=== PATIENT | female | born 1945 | race Caucasian/White ===

== ENCOUNTER 2018-03-25 00:48 | Inpatient (IN) ==
[2018-03-25] MEDS ORDERED: Artificial Tears SOLN 15 ML BOTTLE BOTH EYES PRN (02:40)
[2018-03-25] MEDS ORDERED: Naloxone 0.4 MG/ML INJ IVP PRN (02:40)
[2018-03-25] MEDS ORDERED: Ringers Solution, Lactated 500 ML IVC ONE ×2 (02:50→05:08)
[2018-03-25] MEDS ORDERED: Isovue-370 500 ML INFUS..BTL IV ONE (02:52)
[2018-03-25] MEDS ORDERED: Vancomycin (wt based) 1,000 MG VIAL IVPB SCH (03:00)
[2018-03-25 03:18] LABS: ABG Base Excess -3 mEq/L (-2 to 3); ABG HCO3 25 mEq/L (21-27); ABG Oxygen Saturation 98 % (95-98); ABG PCO2 54 mmHg (35-45); ABG PH 7.26 pH Units (7.32-7.45); ABG PO2 125 mmHg (85-104); ABG TCO2 26 mEq/L (20-26); Blood Gas Modality ASSIST CONTROL; Blood Gas PEEP 5 cm H2O; Blood Gas Respiration Rate 20; Blood Gas VT 400 cc
[2018-03-25] MEDS: Dexmedetomidine HCl 400 MCG/100 ML MLS IVC SCH ×2 (03:35→14:31)
[2018-03-25 03:41] LABS: Basophils # 0.1 K/mcL (0.0-0.2); Basophils % 0.2 %; Eosinophils % 0.1 %; Hematocrit 36.3 % (35.3-44.9); Hemoglobin 10.8 g/dL (11.5-15.4); Immature Granulocytes % 2.5 % (0-4); Lymphocytes # 0.5 K/mcL (0.6-4.6); Lymphocytes % 2.1 %; Mean Corpuscular HGB Conc 29.8 g/dL (31.6-35.5); Mean Corpuscular Hemoglobin 27.7 pg (28.0-33.3); Mean Corpuscular Volume 93.1 fL (83.0-100.0); Monocytes # 0.9 K/mcL (0.0-1.3); Monocytes % 3.6 %; Neutrophils # 23.4 K/mcL (1.6-8.9); Platelet Count 254 K/mcL (140-400); Red Cell Distribution Width 14.5 % (11.5-14.5); Segmented Neutrophils % 91.5 %
[2018-03-25] MEDS: Ipratropium/Albuterol Neb 3 ML IH SCH ×6 (03:45→23:46)
--- NOTE | 2018-03-25 03:53 | Internal Med History&Physical ---
Date of Encounter: 03/25/18 Time of Encounter: 03:46 Internal Medicine - H&P: HPI Chief complaint: Pneumonia Admitted From: Emergency Dept Plans for Post Hospital Care: Home History of present illness: Ms. Burnham is a 72 year old female with history of COPD who presented from [facility] emergency department with pneumonia and respiratory failure. Patient is intubated and sedated and unable to provide history. History is obtained from the in the medical record. Per the patient had some cold symptoms approximately 3 days ago but said that she was feeling better. Today states that several hours prior to arrival she was having "hot and cold flashes." He also states that she felt like she needed to turn up her oxygen from her normal 3.5 L to 4 L. denies any cough or shortness of breath. He states she did feel a little warm to touch but did not measure her temperature. Per ED report EMS had stated that upon their arrival patient had poor respiratory effort and hypoxia. Her oxygen levels improved with nebulized breathing treatments and nonrebreather however upon arrival to the emergency department she was lethargic in any acute respiratory distress. At that point she was intubated. Upon arrival patient was sedated but would awaken and follow basic commands. She did not appear to be in any acute distress. Past Med Surg Social Fam HX - Past Medical History Medical history: arthritis, COPD, GERD, hypertension, osteoporosis, other Additional medical history: Dysphonia-resolved Psychiatric history: anxiety, depression - Past Surgical History Surgical History: cholecystectomy Additional surgical history: left shoulder scope. cystectomy. right foot. right knee. cataracts. left wrist fx - Social History Smoking Status: Former smoker Smokeless Tobacco Status: No Alcohol use: none Drug use: none - Family History Mother Living Status: Hx Family Cardiac Disorders: No Hx Family Respiratory Disorders: No Hx Family Cancer: No Hx Family GI Disorders: No Hx Family Endocrine Disorder: No Hx Family Neuromuscular Disorders: No Hx Family Neurologic Disorders: Yes Hx Family HEENT Disorders: No Hx Family Autoimmune Disorders: No Internal Medicine - H&P: Meds Ipratropium/Albuterol Neb [Duoneb] 3 ml IH Q6HR 02/18/15 [History] Metoprolol XL (24 HR) Succ [Toprol Xl] 25 mg PO DAILY 02/18/15 [History] Montelukast [Singulair] 10 mg PO HS 02/18/15 [History] Tiotropium [Spiriva] 18 mcg IH DAILY 02/18/15 [History] Albuterol Sulfate [Albuterol Inhaler] 180 mcg IH Q4HR PRN 07/06/15 [History] Cholecalciferol (Vitamin D3) [Vitamin D3] 10,000 unit PO DAILY 07/06/15 [History ] Oxygen 2 l NS AD 07/06/15 [History] ALPRAZolam [Xanax 0.25 MG Tablet] 0.25 mg PO TID PRN #21 tablet 10/05/15 [Rx] Fluticasone/Salmeterol [Advair 250-50 Diskus] 1 each IH BID 03/25/18 [History] 3 Allergy/AdvReac Type Severity Reaction Status Date / Time Penicillins Allergy Anaphylaxis Verified 03/24/18 23:35 acetaminophen [From Vicodin] AdvReac Hallucinati Verified 03/25/18 02:05 ng gabapentin [From Neurontin] AdvReac Hallucinati Verified 03/25/18 02:05 ng hydrocodone [From Vicodin] AdvReac Hallucinati Verified 03/25/18 02:05 ng hydroxyzine [From Atarax] AdvReac Diarrhea Verified 03/24/18 23:35 Oxycodone AdvReac Hallucinati Verified 03/24/18 23:35 ng pregabalin [From Lyrica] AdvReac Hallucinati Verified 03/25/18 02:05 ng ROS unobtainable: due to endotracheal tube All Systems PM: A 10-system review of systems was performed and is negative for pertinent findings except as documented above in the HPI. - Constitutional Vitals: Temp Pulse Resp BP Pulse Ox 96.7 F L 103 23 81/68 98 03/25/18 03:00 03/25/18 03:06 03/25/18 03:06 03/25/18 03:06 03/25/18 03:06 Exam: Currently intubated and sedated. Will wake up to verbal commands and follow basic instructions. Moves all 4 extremities spontaneously. - Head Head exam: Present: atraumatic, normal inspection, normocephalic - Eye Eye exam: Present: EOMI, PERRL - ENT ENT exam: Present: mucous membranes moist - Neck Neck exam general surgery: Present: supple - Respiratory Respiratory exam: Present: rhonchi (RLL), wheezes (diffuse). Absent: respiratory distress, tachypnea - Cardiovascular Cardiovascular exam: Present: +S1, +S4, tachycardia. Absent: gallop, irregular rhythm, rubs, systolic murmur - GI/Abdominal GI/Abdominal exam: Present: normal bowel sounds, soft. Absent: distended, tenderness - Extremities Exam Extremities exam: Present: warm. Absent: pedal edema, tenderness - Neurological Exam Neurological exam: Present: alert, no focal deficits Additional comments: Patient is currently intubated and sedated but patient will wake up and follow basic commands. Does not appear to be in any acute distress. Moves all 4 extremity spontaneously. - Skin Skin exam: Present: dry, intact, warm Internal Med - H&P Results - Labs CBC & Chem 7: 03/25/18 03:26 03/25/18 03:26 Labs: Short CBC 03/25/18 Range/Units 03:26 WBC 25.6 H (4.3-11.1) K/mcL Hgb 10.8 L D (11.5-15.4) g/dL Hct 36.3 (35.3-44.9) % Plt Count 254 (140-400) K/mcL - ABG Interpretation ABG results: 03/25/18 03:12 ABG pH 7.26 L D ABG pCO2 54 H D ABG pO2 125 H ABG HCO3 25 ABG Total CO2 26 ABG O2 Saturation 98 ABG Base Excess -3 L - Assessment and plan (1) Acute and chronic respiratory failure Current Visit: No Status: Resolved Assessment and plan: Likely secondary to sepsis, pneumonia, acute exacerbation of COPD. Given elevated troponin and d-dimer, PE is also concern. Patient was intubated in the emergency department. Currently on mechanical ventilation with acceptable oxygenation and hypercapnia is improving. Monitor ABGs. Will order CT of the chest to rule out PE. Qualifiers: Respiratory failure complication: hypoxia and hypercapnia Qualified Code(s) : J96.21 - Acute and chronic respiratory failure with hypoxia; J96.22 - Acute and chronic respiratory failure with hypercapnia (2) Sepsis Current Visit: Yes Status: Acute Assessment and plan: Patient presented with leukocytosis, bandemia, tachycardia likely secondary to pneumonia. Chest x-ray reveals right lower lobe pneumonia. She received 1 L bolus in the emergency department, we will give another 500 mL bolus to meet 30 mL/kg. Blood cultures have been drawn, antibiotics have been initiated. Initial lactate was 5.6 on presentation, repeat in the emergency department was 1.9. Rechecked upon arrival was 2.7, this was likely due to hypotension related to medications. Medications have been discontinued and blood pressures improved with fluids. No indication for vasopressors at this time. Continue to trend lactic acid. Qualifiers: Sepsis type: sepsis due to unspecified organism Qualified Code(s): A41.9 - Sepsis, unspecified organism (3) Pneumonia Current Visit: Yes Status: Acute Assessment and plan: Evidence of her lower lobe pneumonia on chest x-ray with respiratory failure and sepsis as above. Given the patient is intubated and in the ICU we will treat with broad-spectrum antibiotics including vancomycin, aztreonam, Levaquin. Patient's reports that she has history of anaphylaxis to penicillins so we will avoid beta lactams at this time. We will check MRSA nasal swab, strep and legionella urinary antigens, sputum cultures. Blood cultures pending. Qualifiers: Pneumonia type: due to unspecified organism Laterality: right Lung location: lower lobe of lung Qualified Code(s): J18.1 - Lobar pneumonia, unspecified organism (4) Acute exacerbation of chronic obstructive pulmonary disease (COPD) Current Visit: Yes Status: Acute Assessment and plan: Secondary to pneumonia as discussed above. No PFTs on file however patient is a former smoker and on previous CT she said severe emphysema and is oxygen dependent. Currently on antibiotics for pneumonia, received methylprednisolone 125 mg 1 in the emergency department, we will continue with methylprednisolone 60 mg every 6. Scheduled DuoNeb nebs every 4. (5) Elevated troponin Current Visit: Yes Status: Acute Assessment and plan: Troponin 0.86 on presentation, up to 1.94 approximately 4 hours later. No obvious ischemic injury on initial EKG, denies any chest pain prior to arrival. Unclear if this is true myocardial ischemia versus demand ischemia in the setting of sepsis and pneumonia. Regardless we will start heparin infusion , check echo in the morning, repeat troponin in 6 hours. Recheck EKG now. If troponin continues to climb further new ischemic changes consider cardiology consult. (6) DVT prophylaxis Current Visit: Yes Status: Acute Assessment and plan: On heparin infusion for elevated troponin as above. No indication for further DVT prophylaxis. - Time Spent With Patient Total time spent is greater than 50% in coordination of care (as documented) at patient's floor/unit and/or counseling patient:
[2018-03-25 03:59] LABS: Alanine Aminotransferase 92 Units/L (7-52); Albumin 3.1 g/dL (3.5-5.7); Albumin/Globulin Ratio 1.1 (1.1-2.2); Alkaline Phosphatase 52 Units/L (34-104); Aspartate Amino Transferase 136 Units/L (13-39); BUN/Creatinine Ratio 25 (6-26); Bilirubin,Direct 0.1 mg/dL (0.0-0.2); Bilirubin,Indirect 0.3 mg/dL (0.0-1.2); Bilirubin,Total 0.4 mg/dL (0.3-1.0); Blood Urea Nitrogen 19 mg/dL (8-23); Calcium 8.4 mg/dL (8.6-10.3); Carbon Dioxide 22 mEq/L (23-29); Chloride 107 mEq/L (98-107); Globulin 2.9 g/dL (2.4-3.5); Glucose 110 mg/dL (70-105); Magnesium 1.8 mg/dL (1.6-2.6); Osmolality,Calculated 287 (280-300); Sodium 137 mEq/L (136-145); eGFR For Non-African Americans > 60 (> 60)
[2018-03-25 04:06] LABS: Platelet Estimate Normal (Normal); Toxic Granulation Present (Not Present); Toxic Vacuolation Present (Not Present)
[2018-03-25] MEDS: Artificial Tears SOLN 15 ML BOTTLE BOTH EYES SCH ×6 (04:16→20:47)
[2018-03-25] MEDS ORDERED: *HR* Midazolam HCl 2 MG/2 ML VIAL IVP ONE ×2 (04:27→10:00)
[2018-03-25] MEDS ORDERED: *HR* Heparin 5,000 UNIT/ML VIAL IVP ONE (05:09)
[2018-03-25] MEDS ORDERED: *HR* Heparin 5,000 UNIT/ML VIAL IVP PRN ×2 (05:09)
[2018-03-25] MEDS ORDERED: Aspirin 325 MG TABLET PO ONE (05:19)
[2018-03-25 05:24] LABS: ABG Base Excess -3 mEq/L (-2 to 3); ABG HCO3 24 mEq/L (21-27); ABG Oxygen Saturation 83 % (95-98); ABG PCO2 53 mmHg (35-45); ABG PH 7.27 pH Units (7.32-7.45); ABG PO2 55 mmHg (85-104); ABG TCO2 26 mEq/L (20-26); Blood Gas Modality ASSIST CONTROL; Blood Gas PEEP 5 cm H2O; Blood Gas Respiration Rate 22; Blood Gas VT 350 cc
[2018-03-25] MEDS: Pantoprazole 40 MG VIAL IVP SCH (05:51)
[2018-03-25] MEDS: Levofloxacin 750 MG/150 ML 750 MG/150 ML BAG IVPB SCH (05:52)
[2018-03-25] MEDS ORDERED: methylPREDNISolone 125 MG/2 ML VIAL IVP SCH (06:00)
[2018-03-25] MEDS: Heparin 25,000 UNIT/500 ML D5W 25,000 UNIT/500 ML BAG IVC SCH (06:07)
--- NOTE | 2018-03-25 06:40 | Sepsis Event Note ---
Sepsis Reassessment Note - Evaluation Sepsis Screen: Sepsis Risk Current Stage of Sepsis: severe sepsis Possible Source of Sepsis: pulmonary - Focused Exam Date of Encounter: 03/25/18 Time of Encounter: 06:38 Vital Signs: Vital Signs Temp Pulse Resp BP Pulse Ox 03/25/18 06:00 93 29 102/79 92 03/25/18 05:27 97.6 F 03/25/18 05:25 22 91 03/25/18 05:20 25 89 03/25/18 05:00 89 22 65/45 94 03/25/18 04:04 110 26 128/98 92 03/25/18 03:46 24 88/70 94 03/25/18 03:06 103 23 81/68 98 03/25/18 03:00 96.7 F L 116 20 109/87 93 03/25/18 02:50 96.7 F L 116 20 109/87 93 03/25/18 02:30 17 99/75 92 Respiratory Exam: Present: wheezes, rhonchi Cardiovascular Exam: Present: tachycardia Capillary Refill: < 2 seconds Peripheral Pulse Strength: 3+ normal Peripheral Pulse Location: Radial Skin Exam: normal turgor - Reassessment Comments Comments: Patient remains in sepsis. One more liter of fluid was given here for a total of 2L bolus. Blood pressure has remained stable, no indications for pressors at this time. Lactate elevated upon arrival, decreased to 1.9 prior to leaving ED, slightly elevated upon arrival, I presume due to hypotension in the setting of oversedation. She is more alert now and her blood pressure has improved.
[2018-03-25 07:16] LABS: ABG Base Excess -4 mEq/L (-2 to 3); ABG HCO3 24 mEq/L (21-27); ABG Oxygen Saturation 90 % (95-98); ABG PCO2 58 mmHg (35-45); ABG PH 7.23 pH Units (7.32-7.45); ABG PO2 70 mmHg (85-104); ABG TCO2 26 mEq/L (20-26); Blood Gas Modality ASSIST CONTROL; Blood Gas PEEP 5 cm H2O; Blood Gas Respiration Rate 22; Blood Gas VT 350 cc
--- NOTE | 2018-03-25 07:17 | Pulmonology Consult Note ---
<Prateek Kelly W - Last Filed: 03/25/18 09:14> Date of Encounter: 03/25/18 Medications and Allergies Ipratropium/Albuterol Neb [Duoneb] 3 ml IH Q4H PRN 02/18/15 [History] Metoprolol XL (24 HR) Succ [Toprol Xl] 25 mg PO DAILY 02/18/15 [History] Montelukast [Singulair] 10 mg PO HS 02/18/15 [History] Tiotropium [Spiriva] 18 mcg IH DAILY 02/18/15 [History] Albuterol Sulfate [Albuterol Inhaler] 1 - 2 puff IH Q4HR PRN 07/06/15 [History] Oxygen 3.5 l NS AD 07/06/15 [History] ALPRAZolam [Xanax 0.25 MG Tablet] 0.25 mg PO TID PRN #21 tablet 10/05/15 [Rx] Azithromycin [Azithromycin] 250 mg PO MOWEFR 03/25/18 [History] Cholecalciferol (Vitamin D3) [Dialyvite Vitamin D] 5,000 unit PO DAILY 03/25/18 [History] Cyanocobalamin (B-12) [Vitamin B12] 1,000 mcg PO DAILY 03/25/18 [History] Ferrous Sulfate [Ferrous Sulfate] 325 mg PO DAILY 03/25/18 [History] Fluticasone/Salmeterol [Advair Hfa 230-21 Mcg Inhaler] 2 puff IH BID 03/25/18 [ History] Omeprazole [PriLOSEC] 20 mg PO DAILY 03/25/18 [History] predniSONE [Prednisone] 2.5 mg PO DAILY 03/25/18 [History] 3 Allergy/AdvReac Type Severity Reaction Status Date / Time Penicillins Allergy Anaphylaxis Verified 03/24/18 23:35 acetaminophen [From Vicodin] AdvReac Hallucinati Verified 03/25/18 02:05 ng gabapentin [From Neurontin] AdvReac Hallucinati Verified 03/25/18 02:05 ng hydrocodone [From Vicodin] AdvReac Hallucinati Verified 03/25/18 02:05 ng hydroxyzine [From Atarax] AdvReac Diarrhea Verified 03/24/18 23:35 Oxycodone AdvReac Hallucinati Verified 03/24/18 23:35 ng pregabalin [From Lyrica] AdvReac Hallucinati Verified 03/25/18 02:05 ng All Systems: The remainder of the systems were reviewed and are negative Physical Examination Vital Signs: Vital Signs, Last 4 Hours Temp Pulse Resp BP Pulse Ox 03/25/18 07:00 105 25 125/89 92 03/25/18 06:00 93 29 102/79 92 03/25/18 05:27 97.6 F 03/25/18 05:25 22 91 03/25/18 05:20 25 89 03/25/18 05:00 89 22 65/45 94 03/25/18 04:04 110 26 128/98 92 03/25/18 03:46 24 88/70 94 Ventilator Settings Ventilator Settings: Ventilator Settings, Last 8 Hours Ventilator Tidal Volume 400 Setting Ventilator Tidal Volume 350 Setting Ventilator Tidal Volume 350 Setting Ventilator Tidal Volume 350 Setting Ventilator Tidal Volume 400 Setting Ventilator Tidal Volume 350 Setting Ventilator Tidal Volume 400 Setting Ventilator Tidal Volume 400 Setting Ventilator Tidal Volume 400 Setting Ventilator Tidal Volume 400 Setting Ventilator Respiratory Rate 22 Setting Ventilator Respiratory Rate 22 Setting Ventilator Respiratory Rate 22 Setting Ventilator Respiratory Rate 22 Setting Ventilator Respiratory Rate 20 Setting Ventilator Respiratory Rate 20 Setting Ventilator Respiratory Rate 22 Setting Ventilator Respiratory Rate 20 Setting Ventilator Respiratory Rate 20 Setting Ventilator Respiratory Rate 20 Setting Ventilator Respiratory Rate 14 Setting Actual Respiratory Rate 27 Actual Respiratory Rate 29 Actual Respiratory Rate 22 Actual Respiratory Rate 22 Actual Respiratory Rate 26 Actual Respiratory Rate 22 Actual Respiratory Rate 23 Actual Respiratory Rate 20 Actual Respiratory Rate 17 Positive End Expiratory 5 Pressure Positive End Expiratory 5 Pressure Positive End Expiratory 5 Pressure Positive End Expiratory 5 Pressure Positive End Expiratory 5 Pressure Positive End Expiratory 5 Pressure Positive End Expiratory 5 Pressure Positive End Expiratory 5 Pressure Positive End Expiratory 5 Pressure Positive End Expiratory 5 Pressure Positive End Expiratory 5 Pressure Peak Inspiratory Airway 32 Pressure Peak Inspiratory Airway 26 Pressure Peak Inspiratory Airway 27 Pressure Peak Inspiratory Airway 23 Pressure Peak Inspiratory Airway 26 Pressure Peak Inspiratory Airway 31 Pressure Peak Inspiratory Airway 29 Pressure Peak Inspiratory Airway 36 Pressure Peak Inspiratory Airway 28 Pressure Results - Laboratory Findings CBC and BMP: 03/25/18 03:26 03/25/18 03:26 ABG ABG pH 7.23 pH Units (7.32-7.45) L 03/25/18 07:11 ABG pCO2 58 mmHg (35-45) H 03/25/18 07:11 ABG pO2 70 mmHg (85-104) L 03/25/18 07:11 ABG O2 Saturation 90 % (95-98) L 03/25/18 07:11 Abnormal lab findings: Abnormal lab results WBC 25.6 K/mcL (4.3-11.1) H 03/25/18 03:26 Hgb 10.8 g/dL (11.5-15.4) L D 03/25/18 03:26 MCH 27.7 pg (28.0-33.3) L 03/25/18 03:26 MCHC 29.8 g/dL (31.6-35.5) L 03/25/18 03:26 Neutrophils # 23.4 K/mcL (1.6-8.9) H 03/25/18 03:26 Lymphocytes # 0.5 K/mcL (0.6-4.6) L 03/25/18 03:26 Toxic Granulation Present (Not Present) A 03/25/18 03:26 Toxic Vacuolation Present (Not Present) A 03/25/18 03:26 Heparin Anti-Xa, Unfract 0.06 IU/mL (0.30-0.70) L 03/25/18 05:24 ABG pH 7.23 pH Units (7.32-7.45) L 03/25/18 07:11 ABG pCO2 58 mmHg (35-45) H 03/25/18 07:11 ABG pO2 70 mmHg (85-104) L 03/25/18 07:11 ABG O2 Saturation 90 % (95-98) L 03/25/18 07:11 ABG Base Excess -4 mEq/L (-2 to 3) L 03/25/18 07:11 Carbon Dioxide 22 mEq/L (23-29) L 03/25/18 03:26 Glucose 110 mg/dL (70-105) H 03/25/18 03:26 POC Glucose 102 mg/dL (70-99) H 03/25/18 02:34 Lactic Acid 2.7 mmol/L (0.5-2.2) H 03/25/18 03:26 Calcium 8.4 mg/dL (8.6-10.3) L 03/25/18 03:26 AST 136 Units/L (13-39) H 03/25/18 03:26 ALT 92 Units/L (7-52) H 03/25/18 03:26 Troponin I 1.94 ng/mL (< 0.04) H* 03/25/18 03:26 Serum Total Protein 6.0 g/dL (6.4-8.9) L 03/25/18 03:26 Albumin 3.1 g/dL (3.5-5.7) L 03/25/18 03:26 - Microbiology Findings Microbiology Findings: Microbiology, Last 48 Hours 03/25/18 05:40 Legionella Antigen - Final Urine,[place] Streptococcus pneumoniae Antigen (M - Final - Clinical Findings Intake & Output: Intake & Output 03/24/18 03/24/18 03/25/18 15:59 23:59 07:59 Intake Total 520 / 520 Output Total 150 / 150 Balance 370 / 370 Weight 44 kg Consult Discharge Plan - Plan Referrals: Letty Joyce, [employer] [Primary Care Provider] - - Attending Attestation I examined this patient and my medical decision-making was reviewed with the Resident Physician. I agree with the documented findings, disposition and treatment plan as described except to the extent set forth below. We independently had [id number] contact with the patient I spent 35min of Critical Care time with this patient. It involved decision making of high complexity to assess, manipulate, and support vital organ system failure and/or to prevent further life threatening deterioration of the patient' s condition. The time involved in the performance of separately reportable procedures was not counted toward critical care time. Patient seen and examined at bedside Labs, radiology, chart personally reviewed. Management was reviewed during multidisciplinary critical care rounds. [employer]: Non focal exam. Plan to more heavily sedate for ventilator dyssynchrony Pulm: Acute on chronic hypoxic hypercapnic respiratory failure secondary to pneumonia and COPD exacerbation. Having difficulty ventilating the patient appropriately because of rapid respiratory rate which should improve with deeper sedation. Currently acceptable gas exchange given her underlying COPD we will continue to monitor her peak pressures carefully aggressive bronchodilator administration a day and steroids have been given to the patient. Along with antimicrobials. Cards: Patient has severe sepsis and has noted hypotension with sedation needed for ventilator. I suspect she will need a infusion of vasopressor goal map is 60-65.NSTEMI on ACS protocol with heparin infusion for formal cardiology consult in place and urgent echocardiogram is been ordered I suspect this is actually more demand ischemia then true ACS. She has received crystalloid volume resuscitation and I fear that further administration of fluids and in this situation would be deleterious lactate is elevated and we will continue to monitor this GI:Mild transaminitis which is likely secondary to critical illness we will obtain a right upper quadrant ultrasound Nutrition: NPO for now Renal: UOP Monitored, Cont to Trend sCr and monitor Electrolytes. ID: Radiographic evidence of pneumonia treating broadly with antimicrobials infection panel is been ordered along with sputum culture and blood cultures obtained. She has anaphylactic penicillin allergy Heme/Onc:She is on heparin infusion for concern of ACS continue to monitor hemoglobin and platelets Endo: Glucose Monitored Integ/MSK: Skin Care per routine ICU Nursing Protocol to prevent ulcers. Plan to place a central venous catheter will need to interrupt heparin infusion temporarily for this Lines: All lines examined without evidence of infection : Dispo: Remain in ICU for critical illness CODE:Patient is currently full code I discussed her her severe status with the her healthcare proxy Thomas overall prognosis is guarded <Jama Day R - Last Filed: 03/25/18 15:08> Date of Encounter: 03/25/18 Time of Encounter: 07:17 Assessment and Plan (1) Acute and chronic respiratory failure with hypercapnia Current Visit: Yes Status: Acute Acute on chronic respiratory failure with hypoxia and hypercapnia. Requiring intubation and ventilation for management. Likely secondary to pneumonia and sepsis, as well as COPD exacerbation. CT of the chest did not reveal evidence for acute pulmonary embolism. We will continue intubation mechanical ventilation for adequate respiration and control V/Q mismatch. Sedation with Precedex and fentanyl, Versed available if needed. Patient was fighting the ventilator earlier this a.m. Antibiotics for pneumonia and steroids and twice a day breathing treatments for COPD exacerbation for attempt to treat the underlying illnesses. Will likely remain intubated through today, will evaluate readiness for extubation tomorrow. Patient is critically ill and have conveyed this to the family. (2) Sepsis Current Visit: Yes Status: Acute Meeting sepsis criteria with source of infection as well as respiratory failure and WBC of 29 at presentation. Trending lactate this has improved from 5.6> 1.9> 2.7> 2.4 Trending troponins 0.86>1.94>2.41 Blood cultures drawn at [place] with negative growth to date will continue to follow Patient was started on broad-spectrum antibiotics with vancomycin, Levaquin, and aztreonam due to a penicillin anaphylaxis allergy. Patient did receive fluid resuscitation, due to patient's current volume status will be hesitant for aggressive fluid management. Will give albumin this afternoon. Right femoral central venous catheter was placed today. Will begin Levophed blood pressure support as needed. We will continue to trend labs. Qualifiers: Sepsis type: sepsis due to unspecified organism Qualified Code(s): A41.9 - Sepsis, unspecified organism (3) Pneumonia Current Visit: Yes Status: Acute CT chest is consistent with community-acquired pneumonia. Patient was started on broad-spectrum antibiotics with vancomycin, Levaquin, as well as aztreonam due to penicillin allergy with anaphylaxis. Strep pneumonia and legionella antigens were negative, MRSA swab negative. Respiratory panel was negative. Sputum culture pending Blood cultures are negative growth to date, will follow. We will continue with Levaquin and aztreonam today, discontinue vancomycin. Will consider discontinuation of aztreonam in the next 24-48 hours pending clinical status. Qualifiers: Pneumonia type: due to unspecified organism Laterality: bilateral Lung location: lower lobe of lung Qualified Code(s): J18.1 - Lobar pneumonia, unspecified organism (4) Acute exacerbation of chronic obstructive airways disease Current Visit: Yes Status: Acute CO PD exacerbation in the setting of pneumonia. Patient does have evidence of significant emphysema on chest CT. She is a former smoker. She requires 3-4 L of oxygen by nasal cannula at home at baseline. Her last hospitalization was for respiratory problems and is reported by the family to be approximately 2 years ago. Continue antibiotics, start Solu-Medrol IV 40 mg every 6 hours, scheduled breathing treatments. We will follow ABGs. (5) Elevated troponin Current Visit: Yes Status: Acute Elevated troponins 0.86> 1.94> 2.41, no significant changes on EKG, does deny that patient was experiencing chest pain yesterday. Suspect that this is likely related to her acute illness and demand myocardial ischemia. Will order echocardiogram Cardiology consult, appreciate their recommendations Continue heparin drip and monitor Will trend troponins until they begin decreasing. (6) Transaminitis Current Visit: Yes Status: Acute Elevated liver enzymes on admission labs with AST of 136 ALT of 92, no elevation in bilirubin or alkaline phosphatase. We will obtain liver ultrasound for further evaluation of cause of transaminitis Will repeat and follow labs (7) DVT prophylaxis Current Visit: Yes Status: Acute Patient is therapeutic on heparin drip. 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 History was obtained from the chart and family at bedside. Patient's states that approximately 1 week ago she had symptoms consistent with a cold. This seemed to resolve however, over the past 2 days she has developed cough, increased difficulty breathing. Last night while at home patient became very anxious and could not breathe and subtotally presented to the [facility] ED for further evaluation. In the ED she was found to have an elevated WBC of 29 a lactate of 5.6, and significant respiratory distress and tachypnea. Respiratory rate was unable to be controlled with BiPAP and required intubation. Repeat lactate was 1.9 and troponins were found to be increased at 0.8. CT of the chest did reveal chronic emphysematous changes as well as bilateral consolidation of the lung bases consistent with pneumonia. The patient was subsequently transferred to [facility] for further evaluation and management. Patient blood pressure did remain low in transit. She was found to have a lactate of 2.4 after arrival at [facility] and troponins trending upward. Patient was started on heparin drip for suspected demand myocardial ischemia. Patient did require admission to the ICU. Patient was arousable in the ICU and noted to be agitated. She was started on Precedex and fentanyl for sedation. Past Med Surg Social Fam HX - Past Medical History Medical history: arthritis, COPD, GERD, hypertension, osteoporosis, other Additional medical history: Dysphonia-resolved Psychiatric history: anxiety, depression - Past Surgical History Surgical History: cholecystectomy Additional surgical history: left shoulder scope. cystectomy. right foot. right knee. cataracts. left wrist fx - Social History Smoking Status: Former smoker Smokeless Tobacco Status: No Alcohol use: none Drug use: none - Family History Mother Living Status: Hx Family Cardiac Disorders: No Hx Family Respiratory Disorders: No Hx Family Cancer: No Hx Family GI Disorders: No Hx Family Endocrine Disorder: No Hx Family Neuromuscular Disorders: No Hx Family Neurologic Disorders: Yes Hx Family HEENT Disorders: No Hx Family Autoimmune Disorders: No ROS unobtainable: due to endotracheal tube All Systems: The remainder of the systems were reviewed and are negative Physical Examination Vital Signs: Vital Signs, Last 4 Hours Temp Pulse Resp BP Pulse Ox 03/25/18 06:00 93 29 102/79 92 03/25/18 05:27 97.6 F 03/25/18 05:25 22 91 03/25/18 05:20 25 89 03/25/18 05:00 89 22 65/45 94 03/25/18 04:04 110 26 128/98 92 03/25/18 03:46 24 88/70 94 General appearance: agitated Eyes: nonicteric ENT: oropharynx moist, other (ET tube in place) Neck: supple, no lymphadenopathy Effort: other (Ventilated) Inspection: normal Auscultation: bilateral: diminished breath sounds, rales (Posterior lung bases bilaterally) Cardiovascular: regular rate and rhythm Gastrointestinal: hypoactive bowel sounds, soft, non-distended Integumentary: normal Extremities: no cyanosis, no edema, pink and warm Musculoskeletal: no deformities Gait: normal posture unable to assess due to mental status other (Unable to assess due to mental status) Ventilator Settings Ventilator Settings: Ventilator Settings, Last 8 Hours Ventilator Tidal Volume 350 Setting Ventilator Tidal Volume 350 Setting Ventilator Tidal Volume 350 Setting Ventilator Tidal Volume 400 Setting Ventilator Tidal Volume 350 Setting Ventilator Tidal Volume 400 Setting Ventilator Tidal Volume 400 Setting Ventilator Tidal Volume 400 Setting Ventilator Tidal Volume 400 Setting Ventilator Respiratory Rate 22 Setting Ventilator Respiratory Rate 22 Setting Ventilator Respiratory Rate 22 Setting Ventilator Respiratory Rate 20 Setting Ventilator Respiratory Rate 20 Setting Ventilator Respiratory Rate 22 Setting Ventilator Respiratory Rate 20 Setting Ventilator Respiratory Rate 20 Setting Ventilator Respiratory Rate 20 Setting Ventilator Respiratory Rate 14 Setting Actual Respiratory Rate 29 Actual Respiratory Rate 22 Actual Respiratory Rate 22 Actual Respiratory Rate 26 Actual Respiratory Rate 22 Actual Respiratory Rate 23 Actual Respiratory Rate 20 Actual Respiratory Rate 17 Positive End Expiratory 5 Pressure Positive End Expiratory 5 Pressure Positive End Expiratory 5 Pressure Positive End Expiratory 5 Pressure Positive End Expiratory 5 Pressure Positive End Expiratory 5 Pressure Positive End Expiratory 5 Pressure Positive End Expiratory 5 Pressure Positive End Expiratory 5 Pressure Positive End Expiratory 5 Pressure Peak Inspiratory Airway 26 Pressure Peak Inspiratory Airway 27 Pressure Peak Inspiratory Airway 23 Pressure Peak Inspiratory Airway 26 Pressure Peak Inspiratory Airway 31 Pressure Peak Inspiratory Airway 29 Pressure Peak Inspiratory Airway 36 Pressure Peak Inspiratory Airway 28 Pressure Results - Laboratory Findings CBC and BMP: 03/25/18 03:26 03/25/18 03:26 ABG ABG pH 7.23 pH Units (7.32-7.45) L 03/25/18 07:11 ABG pCO2 58 mmHg (35-45) H 03/25/18 07:11 ABG pO2 70 mmHg (85-104) L 03/25/18 07:11 ABG O2 Saturation 90 % (95-98) L 03/25/18 07:11 Abnormal lab findings: Abnormal lab results WBC 25.6 K/mcL (4.3-11.1) H 03/25/18 03:26 Hgb 10.8 g/dL (11.5-15.4) L D 03/25/18 03:26 MCH 27.7 pg (28.0-33.3) L 03/25/18 03:26 MCHC 29.8 g/dL (31.6-35.5) L 03/25/18 03:26 Neutrophils # 23.4 K/mcL (1.6-8.9) H 03/25/18 03:26 Lymphocytes # 0.5 K/mcL (0.6-4.6) L 03/25/18 03:26 Toxic Granulation Present (Not Present) A 03/25/18 03:26 Toxic Vacuolation Present (Not Present) A 03/25/18 03:26 Heparin Anti-Xa, Unfract 0.06 IU/mL (0.30-0.70) L 03/25/18 05:24 ABG pH 7.23 pH Units (7.32-7.45) L 03/25/18 07:11 ABG pCO2 58 mmHg (35-45) H 03/25/18 07:11 ABG pO2 70 mmHg (85-104) L 03/25/18 07:11 ABG O2 Saturation 90 % (95-98) L 03/25/18 07:11 ABG Base Excess -4 mEq/L (-2 to 3) L 03/25/18 07:11 Carbon Dioxide 22 mEq/L (23-29) L 03/25/18 03:26 Glucose 110 mg/dL (70-105) H 03/25/18 03:26 POC Glucose 102 mg/dL (70-99) H 03/25/18 02:34 Lactic Acid 2.7 mmol/L (0.5-2.2) H 03/25/18 03:26 Calcium 8.4 mg/dL (8.6-10.3) L 03/25/18 03:26 AST 136 Units/L (13-39) H 03/25/18 03:26 ALT 92 Units/L (7-52) H 03/25/18 03:26 Troponin I 1.94 ng/mL (< 0.04) H* 03/25/18 03:26 Serum Total Protein 6.0 g/dL (6.4-8.9) L 03/25/18 03:26 Albumin 3.1 g/dL (3.5-5.7) L 03/25/18 03:26 - Microbiology Findings Microbiology Findings: Microbiology, Last 48 Hours 03/25/18 05:40 Legionella Antigen - Final Urine,[place] Streptococcus pneumoniae Antigen (M - Final - Clinical Findings Intake & Output: Intake & Output 03/24/18 03/24/18 03/25/18 15:59 23:59 07:59 Intake Total 520 / 520 Output Total 150 / 150 Balance 370 / 370 Weight 44 kg
[2018-03-25] MEDS: FentaNYL (PF) 1,000 MCG in 0.9 % Sodium Chloride 80 ML IVC SCH ×2 (07:36→20:31)
[2018-03-25] MEDS: Aztreonam 2,000 MG in Water for inj. (sterile) 20 ML 20 ML IVP SCH ×2 (07:46→17:15)
[2018-03-25] MEDS: Chlorhexidine Rinse 15 ML MOUTHWASH MM SCH ×2 (07:46→20:31)
[2018-03-25] MEDS: Budesonide/Formoterol 160/4.5 1 PUFF INH IH SCH ×2 (07:54→19:48)
[2018-03-25] MEDS ORDERED: Aminoglycoside Consult 1 EACH MC ONE (07:57)
[2018-03-25 09:07] LABS: Adenovirus Not Detected (Not Detect); Bordetella Pertussis Not Detected (Not Detect); Chlamydophila pneumoniae Not Detected (Not Detect); Coronavirus 229E Not Detected (Not Detect); Coronavirus HKU1 Not Detected (Not Detect); Coronavirus NL63 Not Detected (Not Detect); Coronavirus OC43 Not Detected (Not Detect); Human Metapneumovirus Not Detected (Not Detect); Human Rhinovirus/Enterovirus Not Detected (Not Detect); Influenza A Subtype 2009 H1 Not Detected (Not Detect); Influenza A Untypeable Not Detected (Not Detect); Influenza B Not Detected (Not Detect); Mycoplasma pneumoniae Not Detected (Not Detect); Parainfluenza Virus 1 Not Detected (Not Detect); Parainfluenza Virus 2 Not Detected (Not Detect); Parainfluenza Virus 3 Not Detected (Not Detect); Parainfluenza Virus 4 Not Detected (Not Detect); Respiratory Syncytial Virus Not Detected (Not Detect)
--- NOTE | 2018-03-25 12:23 | Procedure Note ---
Date of procedure: 03/25/18 Pre-op diagnosis: Hypotension Post-op diagnosis: same Procedure: CVC insertion under U/S Guidance see below for details Anesthesia: local Surgeon: Prateek Kelly Was there an diagnostic assistant present: No Estimated blood loss (cc): 1 Specimen: none Condition: critical Disposition: no change Procedures: Internal Med - Central Line Placement Right Femoral Time out performed: Yes Patient placed on monitor/pulse ox: Yes MD prep: mask, gown, gloves Central line prep: Chlorhexidine scrub Local anesthesia used: Lidocaine 1% Amount of anesthesia used (mls): 10 Ultrasound used for placement: Yes Central line lumen inserted: triple Post Procedure: sutured in place, good blood return, all ports aspirated, flushed, capped, sterile dressing applied, dark venous blood, biodisk applied Patient tolerated procedure: well, no complications Complications: other (none immediate )
[2018-03-25] MEDS: Norepinephrine 4 MG in D5% in Water 250 ML IVC SCH ×2 (12:38→20:30)
[2018-03-25] MEDS: MethylPREDNISolone 40 MG/ML VIAL IVP SCH ×2 (12:38→17:15)
--- NOTE | 2018-03-25 14:26 | Cardiology Consult Note ---
<Leia Rebolledo - Last Filed: 03/25/18 15:14> Date of Encounter: 03/25/18 Time of Encounter: 13:00 Assessment and Plan (1) Acute and chronic respiratory failure with hypercapnia Current Visit: Yes Status: Acute Per cardiology: -Admitted with acute on chronic respiratory failure, pneumonia, sepsis. -Currently intubated. -Management per primary and critical care teams. (2) Elevated troponin Current Visit: Yes Status: Acute Per cardiology: -Troponins 0.0.86, 1.94, 2.41 in the setting of sepsis, pneumonia, respiratory failure. -Family denies patient complaining of chest pain. Currently intubated and sedated. -ECG with non-specific ST and T wave abnormalities noted. -TTE pending. -ON heparin drip. Not on statin due to LFTs. NOt on BB due to hypotensionm, requiring vasopressor support. -Likely demand ischemia related to above. No cardiac rehab consult warranted. -Continue heparin drip. Recommend ASA. Consider BB if/when BP will tolerate. -Further recommendations pending TTE. Discussion w patient/family: The assessment and plan as outlined above was discussed with the patient and/or family members who expressed understanding and agreement. All questions were answered. Thank you for involving us in the care of your patient. Please call with any questions. Discussed and reviewed with . History of Present Illness Consult date: 03/25/18 Requesting physician: Jama Day Consult reason: elevated troponin Chief complaint: shortness of breath History of present illness: Ms. Burnham is a 72 year old female with a relevant past medical history of COPD , anxiety, HTN, HLD who presented to [facility] by EMS. SpO2 was low per EMS and patient was experiencing respiratory distress. Patient was subsequently intubated in ER. Cardiology has been consulted for elevated troponin. Patient is intubated. Majority of history obtained from family at bedside and previous documentation. is at bedside and states patient did not complain of chest pain. states has not been complaining of chest pain. states patients complaints were all respiratory related. Past Med Surg Social Fam HX - Past Medical History Attestation: Yes The following information was validated with the patient. Source: old records reviewed, obtained from family Medical history: arthritis, COPD, GERD, hypertension, osteoporosis, other Additional medical history: Dysphonia-resolved Psychiatric history: anxiety, depression - Past Surgical History Surgical History: cholecystectomy Additional surgical history: left shoulder scope. cystectomy. right foot. right knee. cataracts. left wrist fx - Social History Smoking Status: Former smoker Smokeless Tobacco Status: No Alcohol use: none Drug use: none - Family History Mother Living Status: Hx Family Cardiac Disorders: No Hx Family Respiratory Disorders: No Hx Family Cancer: No Hx Family GI Disorders: No Hx Family Endocrine Disorder: No Hx Family Neuromuscular Disorders: No Hx Family Neurologic Disorders: Yes Hx Family HEENT Disorders: No Hx Family Autoimmune Disorders: No Medications and Allergies Ipratropium/Albuterol Neb [Duoneb] 3 ml IH Q4H PRN 02/18/15 [History] Metoprolol XL (24 HR) Succ [Toprol Xl] 25 mg PO DAILY 02/18/15 [History] Montelukast [Singulair] 10 mg PO HS 02/18/15 [History] Tiotropium [Spiriva] 18 mcg IH DAILY 02/18/15 [History] Albuterol Sulfate [Albuterol Inhaler] 1 - 2 puff IH Q4HR PRN 07/06/15 [History] Oxygen 3.5 l NS AD 07/06/15 [History] ALPRAZolam [Xanax 0.25 MG Tablet] 0.25 mg PO TID PRN #21 tablet 10/05/15 [Rx] Azithromycin [Azithromycin] 250 mg PO MOWEFR 03/25/18 [History] Cholecalciferol (Vitamin D3) [Dialyvite Vitamin D] 5,000 unit PO DAILY 03/25/18 [History] Cyanocobalamin (B-12) [Vitamin B12] 1,000 mcg PO DAILY 03/25/18 [History] Ferrous Sulfate [Ferrous Sulfate] 325 mg PO DAILY 03/25/18 [History] Fluticasone/Salmeterol [Advair Hfa 230-21 Mcg Inhaler] 2 puff IH BID 03/25/18 [ History] Omeprazole [PriLOSEC] 20 mg PO DAILY 03/25/18 [History] predniSONE [Prednisone] 2.5 mg PO DAILY 03/25/18 [History] 3 Allergy/AdvReac Type Severity Reaction Status Date / Time Penicillins Allergy Anaphylaxis Verified 03/24/18 23:35 acetaminophen [From Vicodin] AdvReac Hallucinati Verified 03/25/18 02:05 ng gabapentin [From Neurontin] AdvReac Hallucinati Verified 03/25/18 02:05 ng hydrocodone [From Vicodin] AdvReac Hallucinati Verified 03/25/18 02:05 ng hydroxyzine [From Atarax] AdvReac Diarrhea Verified 03/24/18 23:35 Oxycodone AdvReac Hallucinati Verified 03/24/18 23:35 ng pregabalin [From Lyrica] AdvReac Hallucinati Verified 03/25/18 02:05 ng All Systems Review: The remainder of the systems were reviewed and are negative Review of Systems: Obtained from family. - Cardiovascular Cardiovascular: as per HPI, dyspnea at rest, dyspnea on exertion Physical Examination Vital Signs, Last 4 Hours Pulse Resp BP Pulse Ox 03/25/18 13:00 102 25 133/90 95 03/25/18 12:00 102 26 110/95 96 03/25/18 11:34 22 94/63 97 03/25/18 11:00 89 24 73/57 96 General: Other (Intubated and sedated) HEENT: Atraumatic, Normocephaly, Mucus Membranes Moist Neck: No JVD, Normal carotid pulses Cardiac: Reg Rate and Rhythm, Normal S1 and S2, No Murmur Lungs: Other (Intubated. Inspiratory and expiratory wheezes noted throughout. ) Neuro: Other (Sedated. ) Abdomen: Soft Skin: No rashes noted on visualized skin Musculoskeletal: No Chest Wall Tenderness Extremities: No Clubbing, No Cyanosis, No Edema, Normal Pulses Results 03/25/18 14:20 03/25/18 14:20 Lab Results Impressions Chest CTA 03/25/18 02:52 IMPRESSION: 1. No evidence for acute pulmonary embolism. 2. Redemonstration of severe centrilobular emphysema. 3. Bilateral posterior basal lower lobe consolidation with trace effusion on the right may reflect pneumonia, atelectasis or combination. 4. And irregular somewhat moncho shaped 2.7 x 2.1 cm anterior segment right upper lobe parenchymal density partly abutting the anterior junction line suggestive of scarring but given absence on prior exam would recommend follow-up to confirm stability. Six-month follow-up advised. D/ / Juan David Mcgregor MD / Juan David Mcgregor MD Interpreting Provider: Juan David Mcgregor MD X-Ray 03/25/18 05:19 IMPRESSION: Proximal side hole of the NG tube is in the region of the gastroesophageal junction. Recommend advancing 3-5 cm. D/ / Damian Lutz / Damian Lutz Interpreting Provider: Damian Lutz Active Medications Albuterol/Ipratropium (Duoneb) 3 ml IH [id number] AYANNA Stop: 09/24/18 04:01 Last Admin: 03/25/18 11:34 Dose: 3 ml Artificial Tears (Akwa Tears) 1 drop BOTH EYES Q2HR PRN; Protocol PRN Reason: Dry Eyes Stop: 09/24/18 02:41 Artificial Tears (Akwa Tears) 1 drop BOTH EYES Q4HR AYANNA PRN Reason: Protocol Stop: 09/24/18 04:01 Last Admin: 03/25/18 12:38 Dose: 1 drop Budesonide/Formoterol Fumarate (Symbicort) 2 puff IH BIDR AYANNA PRN Reason: Protocol Stop: 09/24/18 10:01 Last Admin: 03/25/18 07:54 Dose: 2 puff Chlorhexidine Gluconate (Chlorhexidine Rinse) 15 ml MM BID AYANNA Stop: 09/24/18 09:01 Last Admin: 03/25/18 07:46 Dose: 15 ml Heparin Sodium (Porcine) (Heparin) 2,600 unit 60 unit/kg (2600 unit) IVP Q6HR PRN PRN Reason: SEE COMMENTS Stop: 09/24/18 05:10 Heparin Sodium (Porcine) (Heparin) 1,300 unit 30 unit/kg (1300 unit) IVP Q6H PRN PRN Reason: SEE COMMENTS Stop: 09/24/18 05:10 Aztreonam 2,000 mg/ Sterile (Water) 20 mls @ 300 mls/hr IVP Q8HR AYANNA Stop: 09/24/18 08:01 Last Infusion: 03/25/18 08:08 Dose: Infused Dexmedetomidine HCl (Precedex Premix) 400 mcg in 100 mls @ 5.5 mls/hr IVC .[id number] AYANNA; 0.5 MCG/KG/HR PRN Reason: Protocol Stop: 09/24/18 02:46 Last Titration: 03/25/18 13:06 Dose: 1 mcg/kg/hr, 11 mls/hr Fentanyl Citrate 1,000 mcg/ (Sodium Chloride) 100 mls @ 5 mls/hr IVC CONT AYANNA; 50 MCG/HR PRN Reason: Protocol Stop: 09/24/18 02:46 Last Admin: 03/25/18 07:36 Dose: 50 mcg/hr, 5 mls/hr Levofloxacin/Dextrose (Levaquin Premix 750mg/150 Ml) 750 mg in 150 mls @ 100 mls/hr IVPB Q24H AYANNA PRN Reason: Protocol Stop: 09/24/18 06:01 Last Infusion: 03/25/18 07:51 Dose: Infused Heparin Sodium/Dextrose (Heparin 25,000 Unit/500 Ml D5w) 25,000 unit in 500 mls @ 10.56 mls/hr IVC .Q24H AYANNA; 12 UNIT/KG/HR PRN Reason: Protocol Stop: 09/24/18 05:16 Last Titration: 03/25/18 08:30 Dose: 0 unit/kg/hr, 0 mls/hr Norepinephrine Bitartrate 4 mg (/ Dextrose) 254 mls @ 1.9 mls/hr IVC CONT AYANNA; 0.5 MCG/MIN PRN Reason: Protocol Stop: 09/24/18 08:31 Last Titration: 03/25/18 12:41 Dose: 10 mcg/min, 38.1 mls/hr Midazolam HCl 50 mg/ Sodium (Chloride) 100 mls @ 2 mls/hr IVC CONT AYANNA; 1 MG/HR PRN Reason: Protocol Stop: 09/24/18 10:46 Last Admin: 03/25/18 12:40 Dose: Not Given Albumin Human (Alburx 5%) 12.5 gm in 250 mls @ 60 mls/hr IVPB ONCE ONE Stop: 03/25/18 15:02 Last Admin: 03/25/18 11:43 Dose: 60 mls/hr Methylprednisolone (Solu-Medrol) 40 mg IVP Q6HR AYANNA Stop: 09/24/18 12:01 Last Admin: 03/25/18 12:38 Dose: 40 mg Naloxone HCl (Narcan) 0.4 mg IVP Q2MIN PRN PRN Reason: SEE COMMENTS Stop: 09/24/18 02:41 Pantoprazole Sodium (Protonix) 40 mg IVP 0630 AYANNA Stop: 09/24/18 06:31 Last Admin: 03/25/18 05:51 Dose: 40 mg Laboratory Tests 03/24/18 03/24/18 03/25/18 23:25 23:25 00:00 WBC 29.0 H Hgb ABG pH 7.11 L* ABG pCO2 81 H* Creatinine AST ALT Troponin I 0.86 H* 03/25/18 03/25/18 03/25/18 03:26 03:26 03:26 WBC 25.6 H Hgb 10.8 L D ABG pH ABG pCO2 Creatinine 0.75 AST 136 H ALT 92 H Troponin I 1.94 H* 03/25/18 07:44 WBC Hgb ABG pH ABG pCO2 Creatinine AST ALT Troponin I 2.41 H* - Imaging and Cardiology Chest Xray: report reviewed Echo: pending - EKG Interpretation EKG results cardiology: personally reviewed (ECG with ST, HR 106. PVCS noted.), other (Telemetry reviewed with average HR previous 12 hours noted to be 103, ST. PVCs and PACS noted.) Consult Discharge Plan - Plan Referrals: Letty Joyce, ADMITTING OFFICER [Primary Care Provider] - <Juan David Milian - Last Filed: 03/27/18 12:31> Date of Encounter: 03/25/18 Time of Encounter: 18:00 - Attending Attestation I have personally performed a face to face evaluation on this patient. I have reviewed and agree with the care plan. History and Exam by me shows: CC: Shortness of breath HPI: PT presented to the [facility] ER with hx of increasing shortness of breath over last 8 hours prior to admission, progressively more short of breath , in extremis on presentation, was emergently intubated and placed on ventilatory support. She is sedated and intubated. Hx obtained from medical record and at bedside. She did not complain of chest pain, pressure, palpitations, arm neck or shoulder pain. Her only complaint was increased shortness of breath. She has no previous cardiac history. She has not had previous stress imaging that he can recall. PMH: reviewed ROS: reviewed Available labs, Xrays Echos were reviewed PE: pt seen and examined: agree with findings as documeted. IMP/Plan: 1. Elevated troponin: Elevated tropoin at admission with subsequent peak at 2.41 , most consistent with demand ischemia, no acute EKG changes, continue to optimize medical tx, somewhat limited in face of cardiogenic shock, will continue supportive care. She is not a candidate for urgent LHC/possible at this time. Will follow with you, may reconsider if she stablizes further. 2. Septic shock due to community acquired pneumonia 3. Acute on chronic respiratory failure, on ventilator support. 4. COPD - ICu management appreciated. Assessment and Plan Discussion w patient/family: The assessment and plan as outlined above was discussed with the patient and/or family members who expressed understanding and agreement. All questions were answered. Thank you for involving us in the care of your patient. Please call with any questions. History of Present Illness History of present illness: Ms. Burnham is a 72 year old female All Systems Review: The remainder of the systems were reviewed and are negative Physical Examination Vital Signs, Last 4 Hours Pulse Resp BP Pulse Ox 03/27/18 11:25 22 111/88 91 03/27/18 11:00 118 22 119/91 03/27/18 10:15 131 23 131/92 91 03/27/18 10:12 23 131/92 97 03/27/18 09:57 16 119/90 91 03/27/18 09:00 125 15 124/98 89 Results 03/27/18 02:50 03/27/18 02:50 Lab Results 03/26/18 03/27/18 03/27/18 19:45 02:50 02:50 WBC 18.7 H Hgb 9.9 L 9.2 L Hct 32.1 L 29.9 L Plt Count 226 Sodium 137 Potassium 3.8 Chloride 106 Carbon Dioxide 27 BUN 21 Creatinine 0.63 Glucose 163 H Calcium 8.7 Magnesium 2.2 Total Bilirubin AST ALT Alkaline Phosphatase Troponin I 03/27/18 03/27/18 02:50 02:50 WBC Hgb Hct Plt Count Sodium Potassium Chloride Carbon Dioxide BUN Creatinine Glucose Calcium Magnesium Total Bilirubin 0.2 L AST 43 H ALT 58 H Alkaline Phosphatase 47 Troponin I 1.35 H*
[2018-03-25 14:36] LABS: ABG Base Excess -3 mEq/L (-2 to 3); ABG HCO3 25 mEq/L (21-27); ABG Oxygen Saturation 95 % (95-98); ABG PCO2 53 mmHg (35-45); ABG PH 7.28 pH Units (7.32-7.45); ABG PO2 84 mmHg (85-104); ABG TCO2 26 mEq/L (20-26); Blood Gas Modality ASSIST CONTROL; Blood Gas PEEP 5 cm H2O; Blood Gas Respiration Rate 22; Blood Gas VT 350 cc
[2018-03-25 14:47] LABS: Basophils % 0.1 %; Platelet Count 288 K/mcL (140-400)
[2018-03-25 14:49] LABS: Hematocrit 35.3 % (35.3-44.9); Hemoglobin 10.8 g/dL (11.5-15.4); Immature Granulocytes % 1.4 % (0-4); Lymphocytes # 0.5 K/mcL (0.6-4.6); Lymphocytes % 1.8 %; Mean Corpuscular HGB Conc 30.6 g/dL (31.6-35.5); Mean Corpuscular Hemoglobin 28.1 pg (28.0-33.3); Mean Corpuscular Volume 91.7 fL (83.0-100.0); Monocytes # 0.6 K/mcL (0.0-1.3); Monocytes % 2.3 %; Neutrophils # 26.2 K/mcL (1.6-8.9); Red Blood Count 3.85 M/mcL (3.82-4.97); Red Cell Distribution Width 14.5 % (11.5-14.5); Segmented Neutrophils % 94.4 %
[2018-03-25 15:07] LABS: Alanine Aminotransferase 99 Units/L (7-52); Albumin 3.7 g/dL (3.5-5.7); Albumin/Globulin Ratio 1.2 (1.1-2.2); Alkaline Phosphatase 54 Units/L (34-104); Aspartate Amino Transferase 101 Units/L (13-39); BUN/Creatinine Ratio 29 (6-26); Bilirubin,Direct 0.1 mg/dL (0.0-0.2); Bilirubin,Indirect 0.2 mg/dL (0.0-1.2); Bilirubin,Total 0.3 mg/dL (0.3-1.0); Blood Urea Nitrogen 20 mg/dL (8-23); Calcium 8.5 mg/dL (8.6-10.3); Carbon Dioxide 25 mEq/L (23-29); Chloride 104 mEq/L (98-107); Globulin 3.1 g/dL (2.4-3.5); Glucose 154 mg/dL (70-105); Osmolality,Calculated 288 (280-300); Potassium 4.2 mEq/L (3.5-5.1); Sodium 136 mEq/L (136-145); Total Protein 6.8 g/dL (6.4-8.9); eGFR For Non-African Americans > 60 (> 60)
[2018-03-25 15:15] LABS: Troponin I 3.88 ng/mL (< 0.04)
[2018-03-25 15:47] LABS: Platelet Estimate Normal (Normal)
[2018-03-25 15:48] LABS: Anisocytosis 1+ (Not Present); Macrocytosis Present (Not Present); Poikilocytosis 1+ (Not Present); Stomatocytes 1+ (Not Present)
[2018-03-25] MEDS ORDERED: Perflutren Lipid Microsphere 1.3 ML in 0.9 % Sodium Chloride 8.7 ML IVP ONE (16:24)
[2018-03-25] MEDS ORDERED: 0.9 % Sodium Chloride 250 ML ONE (18:50)
[2018-03-26] MEDS: Aztreonam 2,000 MG in Water for inj. (sterile) 20 ML 20 ML IVP SCH ×2 (00:37→07:54)
[2018-03-26] MEDS: MethylPREDNISolone 40 MG/ML VIAL IVP SCH ×5 (00:37→23:10)
[2018-03-26] MEDS: Artificial Tears SOLN 15 ML BOTTLE BOTH EYES SCH ×7 (00:37→23:10)
[2018-03-26] MEDS: Dexmedetomidine HCl 400 MCG/100 ML MLS IVC SCH ×2 (01:50→14:03)
[2018-03-26] MEDS: Ipratropium/Albuterol Neb 3 ML IH SCH ×6 (03:28→23:42)
[2018-03-26 03:35] LABS: Basophils % 0.1 %; Hematocrit 31.5 % (35.3-44.9); Immature Granulocytes % 1.7 % (0-4); Lymphocytes # 0.5 K/mcL (0.6-4.6); Lymphocytes % 2.5 %; Mean Corpuscular HGB Conc 31.7 g/dL (31.6-35.5); Mean Corpuscular Hemoglobin 28.1 pg (28.0-33.3); Mean Corpuscular Volume 88.5 fL (83.0-100.0); Mean Platelet Volume 9.8 fL (9.4-12.4); Monocytes # 0.6 K/mcL (0.0-1.3); Monocytes % 2.9 %; Neutrophils # 19.7 K/mcL (1.6-8.9); Platelet Count 251 K/mcL (140-400); Red Blood Count 3.56 M/mcL (3.82-4.97); Red Cell Distribution Width 14.5 % (11.5-14.5); Segmented Neutrophils % 92.8 %
[2018-03-26 04:03] LABS: BUN/Creatinine Ratio 28 (6-26); Blood Urea Nitrogen 17 mg/dL (8-23); Calcium 8.6 mg/dL (8.6-10.3); Carbon Dioxide 24 mEq/L (23-29); Chloride 103 mEq/L (98-107); Glucose 180 mg/dL (70-105); Osmolality,Calculated 284 (280-300); Potassium 3.6 mEq/L (3.5-5.1); Sodium 134 mEq/L (136-145); eGFR For Non-African Americans > 60 (> 60)
[2018-03-26 04:05] LABS: Troponin I 3.43 ng/mL (< 0.04)
[2018-03-26 05:13] LABS: ABG Base Excess 1 mEq/L (-2 to 3); ABG HCO3 27 mEq/L (21-27); ABG Oxygen Saturation 97 % (95-98); ABG PCO2 46 mmHg (35-45); ABG PH 7.37 pH Units (7.32-7.45); ABG PO2 99 mmHg (85-104); ABG TCO2 28 mEq/L (20-26); Blood Gas Modality PRVC; Blood Gas PEEP 5 cm H2O; Blood Gas Respiration Rate 22; Blood Gas VT 350 cc
[2018-03-26] MEDS: Levofloxacin 750 MG/150 ML 750 MG/150 ML BAG IVPB SCH (06:17)
[2018-03-26] MEDS: Pantoprazole 40 MG VIAL IVP SCH (06:17)
[2018-03-26 07:07] LABS: Alanine Aminotransferase 75 Units/L (7-52); Albumin 3.4 g/dL (3.5-5.7); Albumin/Globulin Ratio 1.3 (1.1-2.2); Alkaline Phosphatase 44 Units/L (34-104); Aspartate Amino Transferase 67 Units/L (13-39); Bilirubin,Direct 0.1 mg/dL (0.0-0.2); Bilirubin,Indirect 0.2 mg/dL (0.0-1.2); Bilirubin,Total 0.3 mg/dL (0.3-1.0); Globulin 2.7 g/dL (2.4-3.5); Total Protein 6.1 g/dL (6.4-8.9)
[2018-03-26] MEDS: Norepinephrine 4 MG in D5% in Water 250 ML IVC SCH (07:15)
[2018-03-26] MEDS: Budesonide/Formoterol 160/4.5 1 PUFF INH IH SCH ×2 (07:25→19:44)
--- NOTE | 2018-03-26 07:26 | Pulmonology Progress Note ---
<AbigailorinPrateek cope W - Last Filed: 03/26/18 07:40> Date of Encounter: 03/26/18 Objective PUL Vital signs: Last Vital Signs Temp 97.5 F L 03/26/18 04:10 Pulse 100 03/26/18 06:00 Resp 24 03/26/18 07:25 BP 115/91 03/26/18 07:25 Pulse Ox 93 03/26/18 07:25 Ventilator Settings Ventilator Settings: Ventilator Settings, Last 8 Hours Ventilator Tidal Volume 350 Setting Ventilator Tidal Volume 350 Setting Ventilator Tidal Volume 350 Setting Ventilator Tidal Volume 350 Setting Ventilator Tidal Volume 350 Setting Ventilator Tidal Volume 350 Setting Ventilator Tidal Volume 350 Setting Ventilator Tidal Volume 350 Setting Ventilator Tidal Volume 350 Setting Ventilator Tidal Volume 350 Setting Ventilator Tidal Volume 350 Setting Ventilator Tidal Volume 350 Setting Ventilator Tidal Volume 350 Setting Ventilator Respiratory Rate 18 Setting Ventilator Respiratory Rate 22 Setting Ventilator Respiratory Rate 22 Setting Ventilator Respiratory Rate 22 Setting Ventilator Respiratory Rate 22 Setting Ventilator Respiratory Rate 22 Setting Ventilator Respiratory Rate 22 Setting Ventilator Respiratory Rate 22 Setting Ventilator Respiratory Rate 22 Setting Ventilator Respiratory Rate 22 Setting Ventilator Respiratory Rate 22 Setting Ventilator Respiratory Rate 22 Setting Ventilator Respiratory Rate 22 Setting Actual Respiratory Rate 24 Actual Respiratory Rate 22 Actual Respiratory Rate 22 Actual Respiratory Rate 22 Actual Respiratory Rate 22 Actual Respiratory Rate 22 Actual Respiratory Rate 22 Actual Respiratory Rate 22 Actual Respiratory Rate 22 Actual Respiratory Rate 22 Actual Respiratory Rate 22 Actual Respiratory Rate 22 Positive End Expiratory 5 Pressure Positive End Expiratory 5 Pressure Positive End Expiratory 5 Pressure Positive End Expiratory 5 Pressure Positive End Expiratory 5 Pressure Positive End Expiratory 5 Pressure Positive End Expiratory 5 Pressure Positive End Expiratory 5 Pressure Positive End Expiratory 5 Pressure Positive End Expiratory 5 Pressure Positive End Expiratory 5 Pressure Positive End Expiratory 5 Pressure Positive End Expiratory 5 Pressure Peak Inspiratory Airway 11 Pressure Peak Inspiratory Airway 25 Pressure Peak Inspiratory Airway 26 Pressure Peak Inspiratory Airway 26 Pressure Peak Inspiratory Airway 28 Pressure Peak Inspiratory Airway 27 Pressure Peak Inspiratory Airway 25 Pressure Peak Inspiratory Airway 25 Pressure Peak Inspiratory Airway 25 Pressure Peak Inspiratory Airway 25 Pressure Peak Inspiratory Airway 25 Pressure Peak Inspiratory Airway 26 Pressure Results - Laboratory Findings CBC and BMP: 03/26/18 03:20 03/26/18 03:20 ABG ABG pH 7.37 pH Units (7.32-7.45) 03/26/18 05:10 ABG pCO2 46 mmHg (35-45) H 03/26/18 05:10 ABG pO2 99 mmHg (85-104) 03/26/18 05:10 ABG O2 Saturation 97 % (95-98) 03/26/18 05:10 Abnormal lab findings: Abnormal lab results WBC 21.2 K/mcL (4.3-11.1) H 03/26/18 03:20 RBC 3.56 M/mcL (3.82-4.97) L 03/26/18 03:20 Hgb 10.0 g/dL (11.5-15.4) L 03/26/18 03:20 Hct 31.5 % (35.3-44.9) L 03/26/18 03:20 Neutrophils # 19.7 K/mcL (1.6-8.9) H 03/26/18 03:20 Lymphocytes # 0.5 K/mcL (0.6-4.6) L 03/26/18 03:20 Toxic Granulation Present (Not Present) A 03/25/18 03:26 Toxic Vacuolation Present (Not Present) A 03/25/18 03:26 Poikilocytosis 1+ (Not Present) A 03/25/18 14:20 Anisocytosis 1+ (Not Present) A 03/25/18 14:20 Macrocytosis Present (Not Present) A 03/25/18 14:20 Stomatocytes 1+ (Not Present) A 03/25/18 14:20 ABG pCO2 46 mmHg (35-45) H 03/26/18 05:10 ABG Total CO2 28 mEq/L (20-26) H 03/26/18 05:10 Sodium 134 mEq/L (136-145) L 03/26/18 03:20 BUN/Creatinine Ratio 28 (6-26) H 03/26/18 03:20 Glucose 180 mg/dL (70-105) H 03/26/18 03:20 POC Glucose 166 mg/dL (70-99) H 03/26/18 05:54 Phosphorus 2.2 mg/dL (2.7-4.5) L 03/26/18 03:20 AST 67 Units/L (13-39) H 03/26/18 03:20 ALT 75 Units/L (7-52) H 03/26/18 03:20 Troponin I 3.43 ng/mL (< 0.04) H* 03/26/18 03:20 Serum Total Protein 6.1 g/dL (6.4-8.9) L 03/26/18 03:20 Albumin 3.4 g/dL (3.5-5.7) L 03/26/18 03:20 - Microbiology Findings Microbiology Findings: Microbiology, Last 48 Hours 03/25/18 06:15 Sputum Culture - Preliminary Sputum 03/25/18 05:40 Legionella Antigen - Final Urine,[place] Streptococcus pneumoniae Antigen (M - Final - Clinical Findings Intake & Output: Intake & Output 03/25/18 03/25/18 03/26/18 15:59 23:59 07:59 Intake Total 449 / 449 1004.0 / 1004.0 405 / 405 Output Total 700 / 700 100 / 100 450 / 450 Balance -251 / -251 904.0 / 904.0 -45 / -45 Weight 46.45 kg Consult Discharge Plan - Plan Referrals: Letty Joyce, RAPID EXTRACTOR OPERATOR [Primary Care Provider] - - Attending Attestation I examined this patient and my medical decision-making was reviewed with the Resident Physician. I agree with the documented findings, disposition and treatment plan as described except to the extent set forth below. We independently had [id number] contact with the patient I spent 32min of Critical Care time with this patient. It involved decision making of high complexity to assess, manipulate, and support vital organ system failure and/or to prevent further life threatening deterioration of the patient' s condition. The time involved in the performance of separately reportable procedures was not counted toward critical care time. Patient seen and examined at bedside Labs, radiology, chart personally reviewed. Management was reviewed during multidisciplinary critical care rounds. 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 I was able to decrease her FiO2 and respiratory rate today Cards: Troponin elevation likely demand ischemia in the context of hypoxic respiratory failure and severe sepsis. She is exhibiting signs of hypotension without shock physiology today and remains on a low-dose infusion of norepinephrine to maintain her map greater than 60 and this is likely related to the amount of sedation she is requiring. Urine output has been acceptable and lactate has normalized I suspect that the vasopressor could be weaned later in the day. Cardiology has seen the patient pending final recommendations with regards to anticoagulation GI: Mild transaminitis noted on admission right upper quadrant ultrasound was negative for acute process I suspect this is related to critical illness repeat transaminases from today pending she is not exhibiting any signs of abdominal tenderness Nutrition: Start enteral nutrition per dietary recommendations today remains on the vent Renal: UOP Monitored, Cont to Trend sCr and monitor Electrolytes. ID: Severe community acquired pneumonia she has an anaphylactic reaction to penicillins she is on Levaquin and aztreonam currently I suspect she could be desolate to Levaquin monotherapy cultures pending respiratory infection panel negative Heme/Onc: She is on heparin infusion for ACS protocol H&H is stable Endo: Glucose Monitored Integ/MSK: Skin Care per routine ICU Nursing Protocol to prevent ulcers. Lines: All lines examined without evidence of infection : Dispo: Remain in ICU for critical illness CODE: She is currently full code. I had to constructive conversations with her healthcare proxy her Thomas yesterday updating him extensively on her condition and her guarded prognosis given the severity of underlying emphysema <Jama Day R - Last Filed: 03/26/18 11:14> Date of Encounter: 03/26/18 Time of Encounter: 07:05 Assessment and Plan (1) Acute and chronic respiratory failure with hypercapnia Current Visit: Yes Status: Acute Acute on chronic respiratory failure with hypoxia and hypercapnia. Requiring intubation and ventilation for management. Likely secondary to sepsis due to pneumonia and COPD exacerbation. CT of the chest did not reveal evidence for acute pulmonary embolism. Patient is now adequately sedated and tolerating mechanical ventilation for adequate respiratory status and control of the/Q mismatch. She is easily arousable and alert, following commands and communicating appropriately. We will continue with sedation and ventilation, assess patient readiness for spontaneous breathing trial this afternoon Sedation with Precedex, fentanyl, Versed. Will wean as tolerated. Patient is on Ativan at home, may require anxiolytic after Versed stopped. Antibiotics and steroids, breathing treatments for COPD exacerbation. Patient may remain intubated throughout today pending spontaneous breathing trial. (2) Sepsis Current Visit: Yes Status: Acute Patient did meet sepsis criteria for admission with suspected source of infection as pneumonia with an associated COPD exacerbation. Patient remains afebrile, WBC improving to 21.2 today, lactate improving from 3.5 last night 2.1 this a.m. Patient is requiring continued blood pressure support with Levophed with adequate response. Blood cultures were drawn in the [place] [facility], negative growth to date will continue to follow Patient on day 2 of antibiotics with Levaquin and aztreonam. Patient was started and aztreonam due to an anaphylactic allergy to penicillin. Right femoral central venous catheter remains in place Qualifiers: Sepsis type: sepsis due to unspecified organism Qualified Code(s): A41.9 - Sepsis, unspecified organism (3) Pneumonia Current Visit: Yes Status: Acute Chest x-ray and CT chest with findings consistent with community-acquired pneumonia. Patient on day 2 of antibiotic therapy with Levaquin and aztreonam. Strep pneumonia and legionella antigens negative, MRSA nasal swab negative. Respiratory panel negative, preliminary sputum culture negative. Blood cultures with negative growth to date. Will de-escalate antibiotics with discontinuation of aztreonam today, continue Levaquin. Qualifiers: Pneumonia type: due to unspecified organism Laterality: bilateral Lung location: lower lobe of lung Qualified Code(s): J18.1 - Lobar pneumonia, unspecified organism (4) Elevated troponin Current Visit: Yes Status: Acute Elevated troponins since admission, these have leveled off in the mid threes most recently 3.43 , most likely related to demand ischemia in the setting of sepsis, pneumonia, respiratory failure, and COPD exacerbation. No chest pain at presentation, patient denies chest pain currently. Echocardiogram obtained yesterday evening, result is pending Cardiology consultation, appreciate the recommendations. Patient is not on statin due to acutely elevated LFTs, will add 81 mg aspirin. Beta andreea may be initiated when hemodynamically stable. (5) Transaminitis Current Visit: Yes Status: Acute Mild elevation of liver transaminases on admission. Repeat labs revealed normalizing AST and ALTs. Liver ultrasound was obtained yesterday and was within normal limits. Enzyme elevation likely related to generalized illness. (6) Hyperglycemia Current Visit: Yes Status: Acute Hyperglycemia without history of diabetes. Likely related to stress response and systemic steroids for COPD exacerbation. Currently patient is nothing by mouth. We will plan to start enteral tube feeds this afternoon. Will place on low- dose sliding scale insulin. (7) DVT prophylaxis Current Visit: Yes Status: Acute Patient is therapeutic on heparin drip with stable hemoglobin and hematocrit. Subjective Principal diagnosis: Shortness of breath Interval history: Patient, overnight. No acute events. She was able to wean down to 2 of Levophed during the night, currently at 4. Objective PUL Vital signs: Last Vital Signs Temp 97.5 F L 03/26/18 04:10 Pulse 100 03/26/18 06:00 Resp 22 03/26/18 06:09 BP 116/80 03/26/18 06:09 Pulse Ox 99 03/26/18 06:09 General appearance: no acute distress, other (Sedated) Eyes: nonicteric ENT: oropharynx moist, other (ET tube in place) Neck: supple, no lymphadenopathy Effort: other (Ventilated) Auscultation: bilateral: clear, diminished breath sounds (Symmetric) Percussion: bilateral: not dull Cardiovascular: regular rate and rhythm, other (Tachycardic) Gastrointestinal: normoactive bowel sounds, soft, non-distended Integumentary: normal Extremities: no cyanosis, no edema, pink and warm Musculoskeletal: no deformities Gait: normal posture non-focal exam, other (No evidence of distress, unable to fully evaluate due to sedation) other (Difficult to ascertain due to sedation) Ventilator Settings Ventilator Settings: Ventilator Settings, Last 8 Hours Ventilator Tidal Volume 350 Setting Ventilator Tidal Volume 350 Setting Ventilator Tidal Volume 350 Setting Ventilator Tidal Volume 350 Setting Ventilator Tidal Volume 350 Setting Ventilator Tidal Volume 350 Setting Ventilator Tidal Volume 350 Setting Ventilator Tidal Volume 350 Setting Ventilator Tidal Volume 350 Setting Ventilator Tidal Volume 350 Setting Ventilator Tidal Volume 350 Setting Ventilator Tidal Volume 350 Setting Ventilator Respiratory Rate 22 Setting Ventilator Respiratory Rate 22 Setting Ventilator Respiratory Rate 22 Setting Ventilator Respiratory Rate 22 Setting Ventilator Respiratory Rate 22 Setting Ventilator Respiratory Rate 22 Setting Ventilator Respiratory Rate 22 Setting Ventilator Respiratory Rate 22 Setting Ventilator Respiratory Rate 22 Setting Ventilator Respiratory Rate 22 Setting Ventilator Respiratory Rate 22 Setting Ventilator Respiratory Rate 22 Setting Actual Respiratory Rate 22 Actual Respiratory Rate 22 Actual Respiratory Rate 22 Actual Respiratory Rate 22 Actual Respiratory Rate 22 Actual Respiratory Rate 22 Actual Respiratory Rate 22 Actual Respiratory Rate 22 Actual Respiratory Rate 22 Actual Respiratory Rate 22 Actual Respiratory Rate 22 Positive End Expiratory 5 Pressure Positive End Expiratory 5 Pressure Positive End Expiratory 5 Pressure Positive End Expiratory 5 Pressure Positive End Expiratory 5 Pressure Positive End Expiratory 5 Pressure Positive End Expiratory 5 Pressure Positive End Expiratory 5 Pressure Positive End Expiratory 5 Pressure Positive End Expiratory 5 Pressure Positive End Expiratory 5 Pressure Positive End Expiratory 5 Pressure Peak Inspiratory Airway 25 Pressure Peak Inspiratory Airway 26 Pressure Peak Inspiratory Airway 26 Pressure Peak Inspiratory Airway 28 Pressure Peak Inspiratory Airway 27 Pressure Peak Inspiratory Airway 25 Pressure Peak Inspiratory Airway 25 Pressure Peak Inspiratory Airway 25 Pressure Peak Inspiratory Airway 25 Pressure Peak Inspiratory Airway 25 Pressure Peak Inspiratory Airway 26 Pressure Results - Laboratory Findings CBC and BMP: 03/26/18 03:20 03/26/18 03:20 ABG ABG pH 7.37 pH Units (7.32-7.45) 03/26/18 05:10 ABG pCO2 46 mmHg (35-45) H 03/26/18 05:10 ABG pO2 99 mmHg (85-104) 03/26/18 05:10 ABG O2 Saturation 97 % (95-98) 03/26/18 05:10 Abnormal lab findings: Abnormal lab results WBC 21.2 K/mcL (4.3-11.1) H 03/26/18 03:20 RBC 3.56 M/mcL (3.82-4.97) L 03/26/18 03:20 Hgb 10.0 g/dL (11.5-15.4) L 03/26/18 03:20 Hct 31.5 % (35.3-44.9) L 03/26/18 03:20 Neutrophils # 19.7 K/mcL (1.6-8.9) H 03/26/18 03:20 Lymphocytes # 0.5 K/mcL (0.6-4.6) L 03/26/18 03:20 Toxic Granulation Present (Not Present) A 03/25/18 03:26 Toxic Vacuolation Present (Not Present) A 03/25/18 03:26 Poikilocytosis 1+ (Not Present) A 03/25/18 14:20 Anisocytosis 1+ (Not Present) A 03/25/18 14:20 Macrocytosis Present (Not Present) A 03/25/18 14:20 Stomatocytes 1+ (Not Present) A 03/25/18 14:20 ABG pCO2 46 mmHg (35-45) H 03/26/18 05:10 ABG Total CO2 28 mEq/L (20-26) H 03/26/18 05:10 Sodium 134 mEq/L (136-145) L 03/26/18 03:20 BUN/Creatinine Ratio 28 (6-26) H 03/26/18 03:20 Glucose 180 mg/dL (70-105) H 03/26/18 03:20 POC Glucose 166 mg/dL (70-99) H 03/26/18 05:54 AST 67 Units/L (13-39) H 03/26/18 03:20 ALT 75 Units/L (7-52) H 03/26/18 03:20 Troponin I 3.43 ng/mL (< 0.04) H* 03/26/18 03:20 Serum Total Protein 6.1 g/dL (6.4-8.9) L 03/26/18 03:20 Albumin 3.4 g/dL (3.5-5.7) L 03/26/18 03:20 - Microbiology Findings Microbiology Findings: Microbiology, Last 48 Hours 03/25/18 06:15 Sputum Culture - Preliminary Sputum 03/25/18 05:40 Legionella Antigen - Final Urine,[place] Streptococcus pneumoniae Antigen (M - Final - Clinical Findings Intake & Output: Intake & Output 03/25/18 03/25/18 03/26/18 15:59 23:59 07:59 Intake Total 449 / 449 1004.0 / 1004.0 405 / 405 Output Total 700 / 700 100 / 100 450 / 450 Balance -251 / -251 904.0 / 904.0 -45 / -45 Weight 46.45 kg
[2018-03-26 07:31] LABS: Magnesium 1.8 mg/dL (1.6-2.6); Phosphorous 2.2 mg/dL (2.7-4.5)
[2018-03-26] MEDS: Chlorhexidine Rinse 15 ML MOUTHWASH MM SCH ×2 (07:54→19:27)
[2018-03-26] MEDS: Heparin 25,000 UNIT/500 ML D5W 25,000 UNIT/500 ML BAG IVC SCH (08:37)
[2018-03-26] MEDS: FentaNYL (PF) 1,000 MCG in 0.9 % Sodium Chloride 80 ML IVC SCH ×2 (09:01→19:50)
[2018-03-26] MEDS: Aspirin 81 MG TAB.CHEW PO SCH (09:31)
[2018-03-26] MEDS ORDERED: *HR* Dextrose 50 % in Water (Syg) 50 ML SYRINGE IVP PRN (10:36)
[2018-03-26] MEDS ORDERED: D5% in Water 1,000 ML IVC PRN (10:36)
[2018-03-26] MEDS ORDERED: Dextrose Gel 15 GM/37.5 ML TUBE PO PRN ×2 (10:36)
[2018-03-26] MEDS: Insulin LISPRO 300 UNITS/3 ML VIAL SQ SCH ×2 (12:21→17:36)
--- NOTE | 2018-03-26 12:45 | Cardiology Progress Note ---
Date of Encounter: 03/26/18 Time of Encounter: 12:30 Assessment and Plan (1) Acute and chronic respiratory failure with hypercapnia Current Visit: Yes Status: Acute Per cardiology: -Admitted with acute on chronic respiratory failure, pneumonia, sepsis. -Currently intubated, family states potential extubation tomorrow. -Management per primary and critical care teams. (2) Elevated troponin Current Visit: Yes Status: Acute Per cardiology: -Troponin peak 3.88 (with downward trend) in the setting of sepsis, pneumonia, respiratory failure; suspect secondary to demand ischemia. -Family denies patient complaining of chest pain. Currently intubated and sedated. -ECG with non-specific ST and T wave abnormalities noted. -TTE pending. -ON heparin drip, can discontinue after gtt has infused for >48 hours. -Not on statin due to LFTs. NOt on BB due to hypotension, requiring vasopressor support. Will start rectal asa. -Likely demand ischemia related to above. No cardiac rehab consult warranted. -Consider BB if/when BP will tolerate. -Further recommendations pending TTE. Discussion w patient/family: The assessment and plan as outlined above was discussed with the patient and/or family members who expressed understanding and agreement. All questions were answered. Thank you for involving us in the care of your patient. Please call with any questions. The patient will be discussed and reviewed with Dr. Milian; changes to be made accordingly. Subjective Principal diagnosis: Shortness of breath Interval history: Seen and examined. at bedside. Remains intubated/sedated. On tube feeding. Still requiring pressor support Objective Vital Signs, Last 4 Hours Temp Pulse Resp BP Pulse Ox 03/26/18 12:00 97.9 F 108 25 89/67 92 03/26/18 11:50 24 89/67 92 03/26/18 11:00 104 18 82/54 93 03/26/18 10:00 107 22 93/73 90 03/26/18 09:51 22 93/73 90 03/26/18 09:00 114 23 125/75 92 General: Other (intubated/sedated) HEENT: Atraumatic, Normocephaly Cardiac: Reg Rate and Rhythm, Normal S1 and S2 Lungs: Other (decreased; anterior only) Neuro: Other (intubated/sedated) Abdomen: Soft Skin: Other (scattered petechiae) Extremities: Normal Pulses, Other (generalized edema to bilateral hands, feet) Results 03/26/18 03:20 03/26/18 03:20 Lab Results 03/25/18 03/25/18 03/25/18 14:20 14:20 20:00 WBC 27.8 H Hgb 10.8 L Hct 35.3 Plt Count 288 Sodium 136 Potassium 4.2 Chloride 104 Carbon Dioxide 25 BUN 20 Creatinine 0.70 Glucose 154 H Calcium 8.5 L Magnesium Total Bilirubin 0.3 AST 101 H ALT 99 H Alkaline Phosphatase 54 Troponin I 3.88 H* 3.25 H* 03/26/18 03/26/18 03:20 03:20 WBC 21.2 H Hgb 10.0 L Hct 31.5 L Plt Count 251 Sodium 134 L Potassium 3.6 Chloride 103 Carbon Dioxide 24 BUN 17 Creatinine 0.61 Glucose 180 H Calcium 8.6 Magnesium 1.8 Total Bilirubin 0.3 AST 67 H ALT 75 H Alkaline Phosphatase 44 Troponin I 3.43 H* Active Medications Albuterol/Ipratropium (Duoneb) 3 ml [facility] [id number] [facility] Stop: 09/24/18 04:01 Last Admin: 03/26/18 11:50 Dose: 3 ml Artificial Tears (Akwa Tears) 1 drop BOTH EYES Q2HR PRN; Protocol PRN Reason: Dry Eyes Stop: 09/24/18 02:41 Artificial Tears (Akwa Tears) 1 drop BOTH EYES Q4HR [facility] PRN Reason: Protocol Stop: 09/24/18 04:01 Last Admin: 03/26/18 12:21 Dose: 1 drop Aspirin (Aspirin) 81 mg PO DAILY [facility] Stop: 09/25/18 09:01 Last Admin: 03/26/18 09:31 Dose: 81 mg Budesonide/Formoterol Fumarate (Symbicort) 2 puff [facility] BIDR [facility] PRN Reason: Protocol Stop: 09/24/18 10:01 Last Admin: 03/26/18 07:25 Dose: 2 puff Chlorhexidine Gluconate (Chlorhexidine Rinse) 15 ml MM BID [facility] Stop: 09/24/18 09:01 Last Admin: 03/26/18 07:54 Dose: 15 ml Dextrose/Water (Dextrose 50% (Syg)) 25 ml IVP AD PRN PRN Reason: Hypoglycemia Stop: 09/25/18 10:37 Glucagon (Glucagen) 1 mg IM ONCE PRN PRN Reason: Hypoglycemia Stop: 09/25/18 10:37 Glucose (Gluctose) 15 gm PO ONCE PRN PRN Reason: Hypoglycemia Stop: 09/25/18 10:37 Glucose (Gluctose) 30 gm PO ONCE PRN PRN Reason: Hypoglycemia Stop: 09/25/18 10:37 Heparin Sodium (Porcine) (Heparin) 2,600 unit 60 unit/kg (2600 unit) IVP Q6HR PRN PRN Reason: SEE COMMENTS Stop: 09/24/18 05:10 Heparin Sodium (Porcine) (Heparin) 1,300 unit 30 unit/kg (1300 unit) IVP Q6H PRN PRN Reason: SEE COMMENTS Stop: 09/24/18 05:10 Dexmedetomidine HCl (Precedex Premix) 400 mcg in 100 mls @ 5.5 mls/hr IVC .[id number] AYANNA; 0.5 MCG/KG/HR PRN Reason: Protocol Stop: 09/24/18 02:46 Last Admin: 03/26/18 01:50 Dose: 0.7 mcg/kg/hr, 7.7 mls/hr Fentanyl Citrate 1,000 mcg/ (Sodium Chloride) 100 mls @ 5 mls/hr IVC CONT AYANNA; 50 MCG/HR PRN Reason: Protocol Stop: 09/24/18 02:46 Last Titration: 03/26/18 10:16 Dose: 100 mcg/hr, 10 mls/hr Levofloxacin/Dextrose (Levaquin Premix 750mg/150 Ml) 750 mg in 150 mls @ 100 mls/hr IVPB Q24H AYANNA PRN Reason: Protocol Stop: 09/24/18 06:01 Last Infusion: 03/26/18 08:38 Dose: Infused Heparin Sodium/Dextrose (Heparin 25,000 Unit/500 Ml D5w) 25,000 unit in 500 mls @ 10.56 mls/hr IVC .Q24H AYANNA; 12 UNIT/KG/HR PRN Reason: Protocol Stop: 09/24/18 05:16 Last Admin: 03/26/18 08:37 Dose: Not Given Norepinephrine Bitartrate 4 mg (/ Dextrose) 254 mls @ 1.9 mls/hr IVC CONT AYANNA; 0.5 MCG/MIN PRN Reason: Protocol Stop: 09/24/18 08:31 Last Titration: 03/26/18 09:00 Dose: 3 mcg/min, 11.43 mls/hr Midazolam HCl 50 mg/ Sodium (Chloride) 100 mls @ 2 mls/hr IVC CONT AYANNA; 1 MG/HR PRN Reason: Protocol Stop: 09/24/18 10:46 Last Titration: 03/26/18 10:16 Dose: 2 mg/hr, 4 mls/hr Sodium Phosphate 30 mmol/ (Sodium Chloride) 260 mls @ 42 mls/hr IVPB ONCE ONE Stop: 03/26/18 14:57 Last Admin: 03/26/18 09:29 Dose: 42 mls/hr Dextrose (Dextrose 5%) 1,000 mls @ 100 mls/hr IVC .Q10H PRN PRN Reason: HYPOGLYCEMIA Stop: 09/25/18 10:37 Insulin Human Lispro (Humalog) 0 units SQ Q6HR AYANNA PRN Reason: Protocol Stop: 09/25/18 12:01 Last Admin: 03/26/18 12:21 Dose: Not Given Methylprednisolone (Solu-Medrol) 40 mg IVP Q6HR AYANNA Stop: 09/24/18 12:01 Last Admin: 03/26/18 06:17 Dose: 40 mg Naloxone HCl (Narcan) 0.4 mg IVP Q2MIN PRN PRN Reason: SEE COMMENTS Stop: 09/24/18 02:41 Pantoprazole Sodium (Protonix) 40 mg IVP 0630 AYANNA Stop: 09/24/18 06:31 Last Admin: 03/26/18 06:17 Dose: 40 mg - Imaging and Cardiology Echo: pending Other Results: 12 hour tele: avg [id number] ST - EKG Interpretation EKG results cardiology: personally reviewed Consult Discharge Plan - Plan Referrals: Letty Joyce, ARCHITECTURAL WOOD MODEL MAKER [Primary Care Provider] -
--- NOTE | 2018-03-26 18:29 | Electrocardiograph Report ---
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
[2018-03-26 19:52] LABS: Hematocrit 32.1 % (35.3-44.9); Hemoglobin 9.9 g/dL (11.5-15.4)
[2018-03-27] MEDS: Insulin LISPRO 300 UNITS/3 ML VIAL SQ SCH ×5 (00:03→23:14)
[2018-03-27] MEDS: Heparin 25,000 UNIT/500 ML D5W 25,000 UNIT/500 ML BAG IVC SCH (01:27)
[2018-03-27] MEDS: Artificial Tears SOLN 15 ML BOTTLE BOTH EYES SCH ×6 (02:59→22:15)
[2018-03-27 03:09] LABS: Basophils % 0.1 %; Hematocrit 29.9 % (35.3-44.9); Hemoglobin 9.2 g/dL (11.5-15.4); Immature Granulocytes % 1.5 % (0-4); Lymphocytes # 0.3 K/mcL (0.6-4.6); Lymphocytes % 1.7 %; Mean Corpuscular HGB Conc 30.8 g/dL (31.6-35.5); Mean Corpuscular Hemoglobin 27.8 pg (28.0-33.3); Mean Corpuscular Volume 90.3 fL (83.0-100.0); Mean Platelet Volume 10.3 fL (9.4-12.4); Monocytes # 0.6 K/mcL (0.0-1.3); Monocytes % 3.2 %; Neutrophils # 17.4 K/mcL (1.6-8.9); Platelet Count 226 K/mcL (140-400); Red Blood Count 3.31 M/mcL (3.82-4.97); Red Cell Distribution Width 14.8 % (11.5-14.5); Segmented Neutrophils % 93.5 %
[2018-03-27 03:20] LABS: Estimated Average Glucose 117 mg/dl; Hemoglobin A1C 5.7 %
[2018-03-27] MEDS: Ipratropium/Albuterol Neb 3 ML IH SCH ×5 (03:25→20:41)
[2018-03-27 03:28] LABS: Albumin 3.2 g/dL (3.5-5.7); Albumin/Globulin Ratio 1.2 (1.1-2.2); BUN/Creatinine Ratio 33 (6-26); Bilirubin,Direct 0.1 mg/dL (0.0-0.2); Bilirubin,Indirect 0.1 mg/dL (0.0-1.2); Bilirubin,Total 0.2 mg/dL (0.3-1.0); Blood Urea Nitrogen 21 mg/dL (8-23); Calcium 8.7 mg/dL (8.6-10.3); Carbon Dioxide 27 mEq/L (23-29); Chloride 106 mEq/L (98-107); Globulin 2.6 g/dL (2.4-3.5); Glucose 163 mg/dL (70-105); Magnesium 2.2 mg/dL (1.6-2.6); Osmolality,Calculated 291 (280-300); Phosphorous 1.9 mg/dL (2.7-4.5); Potassium 3.8 mEq/L (3.5-5.1); Sodium 137 mEq/L (136-145); Total Protein 5.8 g/dL (6.4-8.9); eGFR For Non-African Americans > 60 (> 60)
[2018-03-27] MEDS: Pantoprazole 40 MG VIAL IVP SCH (05:12)
[2018-03-27] MEDS: MethylPREDNISolone 40 MG/ML VIAL IVP SCH ×4 (05:12→23:15)
[2018-03-27] MEDS: Levofloxacin 750 MG/150 ML 750 MG/150 ML BAG IVPB SCH (05:13)
[2018-03-27 05:47] LABS: ABG Base Excess 3 mEq/L (-2 to 3); ABG HCO3 28 mEq/L (21-27); ABG Oxygen Saturation 94 % (95-98); ABG PCO2 50 mmHg (35-45); ABG PH 7.37 pH Units (7.32-7.45); ABG PO2 76 mmHg (85-104); ABG TCO2 30 mEq/L (20-26); Blood Gas Modality PRVC; Blood Gas PEEP 5 cm H2O; Blood Gas Respiration Rate 18; Blood Gas VT 350 cc
[2018-03-27] MEDS: FentaNYL (PF) 1,000 MCG in 0.9 % Sodium Chloride 80 ML IVC SCH (06:35)
[2018-03-27] MEDS: Dexmedetomidine HCl 400 MCG/100 ML MLS IVC SCH (06:35)
[2018-03-27] MEDS ORDERED: Potassium Chloride 40 MEQ/200 ML BAG IVPB PRN (06:44)
[2018-03-27] MEDS: Budesonide/Formoterol 160/4.5 1 PUFF INH IH SCH ×2 (07:30→20:41)
--- NOTE | 2018-03-27 07:50 | Pulmonology Progress Note ---
<RobinKarens W - Last Filed: 03/27/18 08:19> Date of Encounter: 03/27/18 Objective PUL Vital signs: Last Vital Signs Temp 97.6 F 03/27/18 07:30 Pulse 114 03/27/18 08:00 Resp 24 03/27/18 08:00 BP 102/80 03/27/18 08:00 Pulse Ox 89 03/27/18 08:00 Ventilator Settings Ventilator Settings: Ventilator Settings, Last 8 Hours Ventilator Tidal Volume 350 Setting Ventilator Tidal Volume 350 Setting Ventilator Tidal Volume 350 Setting Ventilator Tidal Volume 350 Setting Ventilator Tidal Volume 350 Setting Ventilator Tidal Volume 350 Setting Ventilator Tidal Volume 350 Setting Ventilator Tidal Volume 350 Setting Ventilator Tidal Volume 350 Setting Ventilator Tidal Volume 350 Setting Ventilator Tidal Volume 350 Setting Ventilator Tidal Volume 350 Setting Ventilator Tidal Volume 350 Setting Ventilator Respiratory Rate 18 Setting Ventilator Respiratory Rate 18 Setting Ventilator Respiratory Rate 18 Setting Ventilator Respiratory Rate 18 Setting Ventilator Respiratory Rate 18 Setting Ventilator Respiratory Rate 18 Setting Ventilator Respiratory Rate 18 Setting Ventilator Respiratory Rate 18 Setting Ventilator Respiratory Rate 18 Setting Ventilator Respiratory Rate 18 Setting Ventilator Respiratory Rate 18 Setting Ventilator Respiratory Rate 18 Setting Ventilator Respiratory Rate 18 Setting Actual Respiratory Rate 24 Actual Respiratory Rate 21 Actual Respiratory Rate 21 Actual Respiratory Rate 18 Actual Respiratory Rate 18 Actual Respiratory Rate 18 Actual Respiratory Rate 18 Actual Respiratory Rate 18 Actual Respiratory Rate 20 Actual Respiratory Rate 18 Actual Respiratory Rate 18 Actual Respiratory Rate 18 Positive End Expiratory 5 Pressure Positive End Expiratory 5 Pressure Positive End Expiratory 5 Pressure Positive End Expiratory 5 Pressure Positive End Expiratory 5 Pressure Positive End Expiratory 5 Pressure Positive End Expiratory 5 Pressure Positive End Expiratory 5 Pressure Positive End Expiratory 5 Pressure Positive End Expiratory 5 Pressure Positive End Expiratory 5 Pressure Positive End Expiratory 5 Pressure Positive End Expiratory 5 Pressure Peak Inspiratory Airway 13 Pressure Peak Inspiratory Airway 13 Pressure Peak Inspiratory Airway 13 Pressure Peak Inspiratory Airway 27 Pressure Peak Inspiratory Airway 26 Pressure Peak Inspiratory Airway 25 Pressure Peak Inspiratory Airway 22 Pressure Peak Inspiratory Airway 24 Pressure Peak Inspiratory Airway 24 Pressure Peak Inspiratory Airway 23 Pressure Peak Inspiratory Airway 25 Pressure Peak Inspiratory Airway 25 Pressure Results - Laboratory Findings CBC and BMP: 03/27/18 02:50 03/27/18 02:50 ABG ABG pH 7.37 pH Units (7.32-7.45) 03/27/18 05:44 ABG pCO2 50 mmHg (35-45) H 03/27/18 05:44 ABG pO2 76 mmHg (85-104) L 03/27/18 05:44 ABG O2 Saturation 94 % (95-98) L 03/27/18 05:44 Abnormal lab findings: Abnormal lab results WBC 18.7 K/mcL (4.3-11.1) H 03/27/18 02:50 RBC 3.31 M/mcL (3.82-4.97) L 03/27/18 02:50 Hgb 9.2 g/dL (11.5-15.4) L 03/27/18 02:50 Hct 29.9 % (35.3-44.9) L 03/27/18 02:50 MCH 27.8 pg (28.0-33.3) L 03/27/18 02:50 MCHC 30.8 g/dL (31.6-35.5) L 03/27/18 02:50 RDW 14.8 % (11.5-14.5) H 03/27/18 02:50 Neutrophils # 17.4 K/mcL (1.6-8.9) H 03/27/18 02:50 Lymphocytes # 0.3 K/mcL (0.6-4.6) L 03/27/18 02:50 Toxic Granulation Present (Not Present) A 03/25/18 03:26 Toxic Vacuolation Present (Not Present) A 03/25/18 03:26 Poikilocytosis 1+ (Not Present) A 03/25/18 14:20 Anisocytosis 1+ (Not Present) A 03/25/18 14:20 Macrocytosis Present (Not Present) A 03/25/18 14:20 Stomatocytes 1+ (Not Present) A 03/25/18 14:20 ABG pCO2 50 mmHg (35-45) H 03/27/18 05:44 ABG pO2 76 mmHg (85-104) L 03/27/18 05:44 ABG HCO3 28 mEq/L (21-27) H 03/27/18 05:44 ABG Total CO2 30 mEq/L (20-26) H 03/27/18 05:44 ABG O2 Saturation 94 % (95-98) L 03/27/18 05:44 BUN/Creatinine Ratio 33 (6-26) H 03/27/18 02:50 Glucose 163 mg/dL (70-105) H 03/27/18 02:50 POC Glucose 133 mg/dL (70-99) H 03/27/18 05:11 Hemoglobin A1c 5.7 % (-5.6) H 03/27/18 02:50 Phosphorus 1.9 mg/dL (2.7-4.5) L 03/27/18 02:50 Total Bilirubin 0.2 mg/dL (0.3-1.0) L 03/27/18 02:50 AST 43 Units/L (13-39) H 03/27/18 02:50 ALT 58 Units/L (7-52) H 03/27/18 02:50 Troponin I 1.35 ng/mL (< 0.04) H* 03/27/18 02:50 Serum Total Protein 5.8 g/dL (6.4-8.9) L 03/27/18 02:50 Albumin 3.2 g/dL (3.5-5.7) L 03/27/18 02:50 - Microbiology Findings Microbiology Findings: Microbiology, Last 48 Hours 03/25/18 06:15 Sputum Culture - Preliminary Sputum 03/25/18 05:40 Legionella Antigen - Final Urine,[place] Streptococcus pneumoniae Antigen (M - Final - Clinical Findings Intake & Output: Intake & Output 03/26/18 03/27/18 03/27/18 23:59 07:59 15:59 Intake Total 744 / 744 455 / 455 Output Total 475 / 475 100 / 100 Balance 269 / 269 355 / 355 Consult Discharge Plan - Plan Referrals: Letty Joyce, [employer] [Primary Care Provider] - - Attending Attestation I examined this patient and my medical decision-making was reviewed with the Resident Physician. I agree with the documented findings, disposition and treatment plan as described except to the extent set forth below. We independently had [id number] contact with the patient Patient seen and examined at bedside Labs, radiology, chart personally reviewed. Management was reviewed during multidisciplinary critical care rounds. 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 She is on low dose of vasopressor support likely manifestation of acute to the systolic heart failure as well as effective sedative I suspect once his sedative has been eliminated for comfort on the event we can wean the vasopressor entirely there is no evidence of shock physiology GI: Continue GI prophylaxis while on vent*bowel regimen Nutrition: Enteral nutrition while on vent dietary recommendations Renal: UOP Monitored, Cont to Trend sCr and monitor Electrolytes. ID: She is being treated for severe community acquired pneumonia cultures as far remain negative white count trending down remains afebrile Heme/Onc: Transition from infusion of heparin to DVT prophylaxis H&H and platelets are stable. Endo: Glucose Monitored and acceptable Integ/MSK: Skin Care per routine ICU Nursing Protocol to prevent ulcers. Lines: All lines examined without evidence of infection : Dispo: Remain in ICU today CODE: Full Code <Jama Day R - Last Filed: 03/27/18 09:17> Date of Encounter: 03/27/18 Time of Encounter: 07:05 Assessment and Plan (1) Acute and chronic respiratory failure with hypercapnia Current Visit: Yes Status: Acute Acute on chronic respiratory failure with hypoxia and hypercapnia. Requiring intubation and ventilation for management. Likely secondary to sepsis due to pneumonia and COPD exacerbation. CT of the chest did not reveal evidence for acute pulmonary embolism. Patient is now adequately sedated and tolerating mechanical ventilation for adequate respiratory status and control of the/Q mismatch. She is easily arousable and alert, following commands and communicating appropriately. We will wean sedation as tolerated, plan for spontaneous breathing trial and CPAP this afternoon. Patient is on Xanax at home, will likely require anxiolytic with benzodiazepine after Versed drip is weaned. Antibiotics, steroids, breathing treatments for COPD exacerbation and pneumonia. Liberation from ventilator pending spontaneous breathing trial outcome. (2) Sepsis Current Visit: Yes Status: Acute Patient did meet sepsis criteria for admission with suspected source of infection as pneumonia with an associated COPD exacerbation. Patient did have temperature 100.9 overnight, patient was noted to be on Bear hugger at that time, repeat temperature check reveals 98.1. Lactate normalized , troponins trending downward. White blood cell count continues to decrease. Patient is requiring continued blood pressure support with Levophed with adequate response. Blood cultures were drawn in the [place] ED, negative growth to date will continue to follow. Patient on day 3 of antibiotics with Levaquin. Right femoral central venous catheter remains in place Qualifiers: Sepsis type: sepsis due to unspecified organism Qualified Code(s): A41.9 - Sepsis, unspecified organism (3) Pneumonia Current Visit: Yes Status: Acute Chest x-ray and CT chest with findings consistent with community-acquired pneumonia. Patient on day 3 of antibiotic therapy with Levaquin. Strep pneumonia and legionella antigens negative, MRSA nasal swab negative. Respiratory panel negative, preliminary sputum culture negative. Blood cultures with negative growth to date. Will continue antibiotic coverage with Levaquin. Qualifiers: Pneumonia type: due to unspecified organism Laterality: bilateral Lung location: lower lobe of lung Qualified Code(s): J18.1 - Lobar pneumonia, unspecified organism (4) Elevated troponin Current Visit: Yes Status: Acute Elevated troponins since admission, troponins are now trending downward, most likely related to demand ischemia in the setting of sepsis, pneumonia, respiratory failure, and COPD exacerbation. No chest pain at presentation, patient denies chest pain currently. Echocardiogram does reveal evidence of stress-induced cardiomyopathy with an associated ejection fraction of 30-35% Cardiology consultation, appreciate the recommendations. Patient is now been on heparin drip for greater than 48 hours will discontinue. Continue with aspirin daily. Will plan to initiate beta andreea when blood pressure will allow. No plan for cardiology intervention at this time, cardiology is following and will continue to assess whether she will need intervention prior to discharge (5) Transaminitis Current Visit: Yes Status: Acute Mild elevation of liver transaminases on admission. Repeat labs revealed normalizing AST and ALTs. Liver ultrasound was obtained yesterday and was within normal limits. Enzyme elevation likely related to generalized illness. We will avoid hepatotoxic agents at this time. (6) Hyperglycemia Current Visit: Yes Status: Acute No history of diabetes, elevated blood glucose yesterday likely related to stress response and systemic glucocorticoids. Patient did begin tube feeds yesterday as well as low-dose sliding scale insulin. We will continue to follow for adequate glycemic control and adjust as necessary. (7) DVT prophylaxis Current Visit: Yes Status: Acute Patient has been therapeutic on heparin drip, will discontinue this afternoon and transition to 5000 units SQ heparin twice a day Subjective Principal diagnosis: Shortness of breath Interval history: No acute events overnight. Patient had become mildly agitated when given bath, however this has been well-controlled with sedation. She is arousable and following commands. Objective PUL Vital signs: Last Vital Signs Temp 100.9 F H 03/27/18 04:20 Pulse 105 03/27/18 06:00 Resp 24 03/27/18 07:30 BP 111/87 03/27/18 07:30 Pulse Ox 93 03/27/18 07:30 General appearance: no acute distress Eyes: nonicteric ENT: oropharynx moist, other (ET tube in place) Neck: supple, no lymphadenopathy Effort: other (Ventilated) Auscultation: bilateral: clear Percussion: bilateral: not dull Cardiovascular: regular rate and rhythm, other (Tachycardic) Gastrointestinal: normoactive bowel sounds, soft, non-distended Integumentary: other (Extremities with small areas of ecchymosis) Extremities: no cyanosis, no edema, pink and warm Musculoskeletal: no deformities Gait: normal posture non-focal exam, other (Unable to fully assess due to sedation and intubation) other (Occasional mild anxiety controlled with anxiolytic. Unable to fully assess due to sedation and intubation) Ventilator Settings Ventilator Settings: Ventilator Settings, Last 8 Hours Ventilator Tidal Volume 350 Setting Ventilator Tidal Volume 350 Setting Ventilator Tidal Volume 350 Setting Ventilator Tidal Volume 350 Setting Ventilator Tidal Volume 350 Setting Ventilator Tidal Volume 350 Setting Ventilator Tidal Volume 350 Setting Ventilator Tidal Volume 350 Setting Ventilator Tidal Volume 350 Setting Ventilator Tidal Volume 350 Setting Ventilator Tidal Volume 350 Setting Ventilator Tidal Volume 350 Setting Ventilator Respiratory Rate 18 Setting Ventilator Respiratory Rate 18 Setting Ventilator Respiratory Rate 18 Setting Ventilator Respiratory Rate 18 Setting Ventilator Respiratory Rate 18 Setting Ventilator Respiratory Rate 18 Setting Ventilator Respiratory Rate 18 Setting Ventilator Respiratory Rate 18 Setting Ventilator Respiratory Rate 18 Setting Ventilator Respiratory Rate 18 Setting Ventilator Respiratory Rate 18 Setting Ventilator Respiratory Rate 18 Setting Actual Respiratory Rate 21 Actual Respiratory Rate 18 Actual Respiratory Rate 18 Actual Respiratory Rate 18 Actual Respiratory Rate 18 Actual Respiratory Rate 18 Actual Respiratory Rate 20 Actual Respiratory Rate 18 Actual Respiratory Rate 18 Actual Respiratory Rate 18 Actual Respiratory Rate 21 Positive End Expiratory 5 Pressure Positive End Expiratory 5 Pressure Positive End Expiratory 5 Pressure Positive End Expiratory 5 Pressure Positive End Expiratory 5 Pressure Positive End Expiratory 5 Pressure Positive End Expiratory 5 Pressure Positive End Expiratory 5 Pressure Positive End Expiratory 5 Pressure Positive End Expiratory 5 Pressure Positive End Expiratory 5 Pressure Positive End Expiratory 5 Pressure Peak Inspiratory Airway 13 Pressure Peak Inspiratory Airway 27 Pressure Peak Inspiratory Airway 26 Pressure Peak Inspiratory Airway 25 Pressure Peak Inspiratory Airway 22 Pressure Peak Inspiratory Airway 24 Pressure Peak Inspiratory Airway 24 Pressure Peak Inspiratory Airway 23 Pressure Peak Inspiratory Airway 25 Pressure Peak Inspiratory Airway 25 Pressure Peak Inspiratory Airway 14 Pressure Results - Laboratory Findings CBC and BMP: 03/27/18 02:50 03/27/18 02:50 ABG ABG pH 7.37 pH Units (7.32-7.45) 03/27/18 05:44 ABG pCO2 50 mmHg (35-45) H 03/27/18 05:44 ABG pO2 76 mmHg (85-104) L 03/27/18 05:44 ABG O2 Saturation 94 % (95-98) L 03/27/18 05:44 Abnormal lab findings: Abnormal lab results WBC 18.7 K/mcL (4.3-11.1) H 03/27/18 02:50 RBC 3.31 M/mcL (3.82-4.97) L 03/27/18 02:50 Hgb 9.2 g/dL (11.5-15.4) L 03/27/18 02:50 Hct 29.9 % (35.3-44.9) L 03/27/18 02:50 MCH 27.8 pg (28.0-33.3) L 03/27/18 02:50 MCHC 30.8 g/dL (31.6-35.5) L 03/27/18 02:50 RDW 14.8 % (11.5-14.5) H 03/27/18 02:50 Neutrophils # 17.4 K/mcL (1.6-8.9) H 03/27/18 02:50 Lymphocytes # 0.3 K/mcL (0.6-4.6) L 03/27/18 02:50 Toxic Granulation Present (Not Present) A 03/25/18 03:26 Toxic Vacuolation Present (Not Present) A 03/25/18 03:26 Poikilocytosis 1+ (Not Present) A 03/25/18 14:20 Anisocytosis 1+ (Not Present) A 03/25/18 14:20 Macrocytosis Present (Not Present) A 03/25/18 14:20 Stomatocytes 1+ (Not Present) A 03/25/18 14:20 ABG pCO2 50 mmHg (35-45) H 03/27/18 05:44 ABG pO2 76 mmHg (85-104) L 03/27/18 05:44 ABG HCO3 28 mEq/L (21-27) H 03/27/18 05:44 ABG Total CO2 30 mEq/L (20-26) H 03/27/18 05:44 ABG O2 Saturation 94 % (95-98) L 03/27/18 05:44 BUN/Creatinine Ratio 33 (6-26) H 03/27/18 02:50 Glucose 163 mg/dL (70-105) H 03/27/18 02:50 POC Glucose 133 mg/dL (70-99) H 03/27/18 05:11 Hemoglobin A1c 5.7 % (-5.6) H 03/27/18 02:50 Phosphorus 1.9 mg/dL (2.7-4.5) L 03/27/18 02:50 Total Bilirubin 0.2 mg/dL (0.3-1.0) L 03/27/18 02:50 AST 43 Units/L (13-39) H 03/27/18 02:50 ALT 58 Units/L (7-52) H 03/27/18 02:50 Troponin I 1.35 ng/mL (< 0.04) H* 03/27/18 02:50 Serum Total Protein 5.8 g/dL (6.4-8.9) L 03/27/18 02:50 Albumin 3.2 g/dL (3.5-5.7) L 03/27/18 02:50 - Microbiology Findings Microbiology Findings: Microbiology, Last 48 Hours 03/25/18 06:15 Sputum Culture - Preliminary Sputum 03/25/18 05:40 Legionella Antigen - Final Urine,[place] Streptococcus pneumoniae Antigen (M - Final - Clinical Findings Intake & Output: Intake & Output 03/26/18 03/26/18 03/27/18 15:59 23:59 07:59 Intake Total 922 / 922 744 / 744 455 / 455 Output Total 245 / 245 475 / 475 50 / 50 Balance 677 / 677 269 / 269 405 / 405
[2018-03-27] MEDS: Aspirin 81 MG TAB.CHEW PO SCH (08:35)
[2018-03-27] MEDS: Chlorhexidine Rinse 15 ML MOUTHWASH MM SCH ×2 (08:35→19:34)
--- NOTE | 2018-03-27 12:14 | Cardiology Progress Note ---
Date of Encounter: 03/27/18 Time of Encounter: 11:30 Assessment and Plan (1) Acute and chronic respiratory failure with hypercapnia Current Visit: Yes Status: Acute Per cardiology: -Admitted with acute on chronic respiratory failure, pneumonia, sepsis. -Currently extubated, on bipap. -Management per primary and critical care teams. (2) Elevated troponin Current Visit: Yes Status: Acute Per cardiology: -Troponin peak 3.88 (with downward trend, 1.35) in the setting of sepsis, pneumonia, respiratory failure; suspect secondary to demand ischemia. -Family denies patient complaining of chest pain. Patient denies chest pain. -ECG with non-specific ST and T wave abnormalities noted. -TTE with LVEF 30-35%, though to be possibly stress induced cardiomyopathy. -Not on statin due to LFTs. NOt on BB/aubrey/arb due to hypotension. On asa. -Likely demand ischemia related to above. No cardiac rehab consult warranted. -Consider BB (coreg, toprol) if/when BP will tolerate. -See cardiomyopathy below. Cardiology will sign off and will arrange close outpatient follow up. (3) Cardiomyopathy Current Visit: Yes Status: Acute Per cardiology: -LVEF 30-35%, appearance similar to stress induced cardiomyopathy. -Per Stuart, TALENT DEVELOPMENT MANAGER: Discussed findings with at bedside, discussed management options including ischemic evaluation prior to discharge versus medical therapy; will treat medically for now. -Attempted to discuss with family, however no one currently in patient's room. Will attempt to discuss with again. -Ideally start BB (toprol vs. coreg) and ACEi prior to discharge. -Discussed and reviewed with , Plan to follow closely with Cardiology in the outpatient setting and re-evaluate LVEF in 3 months after GDMT; if LVEF remains reduced, they will consider LHC at that time unless symptoms arise in the mean time. Qualifiers: Cardiomyopathy type: unspecified Qualified Code(s): I42.9 - Cardiomyopathy , unspecified Discussion w patient/family: The assessment and plan as outlined above was discussed with the patient who expressed understanding and agreement. All questions were answered. Thank you for involving us in the care of your patient. Please call with any questions. Discussed and reviewed with . Subjective Principal diagnosis: Shortness of breath Interval history: Patient extubated, on bipap currently. Denies chest pain. Patient is confused, asking where she is. Objective Vital Signs, Last 4 Hours Pulse Resp BP Pulse Ox 03/27/18 11:25 22 111/88 91 03/27/18 11:00 118 22 119/91 03/27/18 10:15 131 23 131/92 91 03/27/18 10:12 23 131/92 97 03/27/18 09:57 16 119/90 91 03/27/18 09:00 125 15 124/98 89 General: Conversant, Other (Conversational dyspnea noted. ) HEENT: Atraumatic, Normocephaly, Mucus Membranes Moist Neck: No JVD, Normal carotid pulses Cardiac: Reg Rate and Rhythm, Normal S1 and S2, No Murmur Lungs: Other (Lung sounds diminished throughout. ) Neuro: Alert and responsive, Other (Oriented to person. ) Abdomen: Soft, Non-Tender Skin: No rashes noted on visualized skin Musculoskeletal: No Chest Wall Tenderness Extremities: No Clubbing, No Cyanosis, No Edema, Normal Pulses Results 03/27/18 02:50 03/27/18 02:50 Lab Results Impressions Echocardiogram 03/25/18 04:07 Impressions: LVEF 30-35%. Normal LV chamber size and wall thickness. Global left ventricular systolic dysfunction with sparing of the basal segments. Mild left ventricular diastolic dysfunction. Normal right ventricular structure and function. Mild-moderate tricuspid regurgitation. Moderate pulmonary hypertension. Estimated RVSP is 53 mmHg. Active Medications Albuterol/Ipratropium (Duoneb) 3 ml IH [id number] [facility] Stop: 09/24/18 04:01 Last Admin: 03/27/18 11:25 Dose: 3 ml Artificial Tears (Akwa Tears) 1 drop BOTH EYES Q2HR PRN; Protocol PRN Reason: Dry Eyes Stop: 09/24/18 02:41 Artificial Tears (Akwa Tears) 1 drop BOTH EYES Q4HR AYANNA PRN Reason: Protocol Stop: 09/24/18 04:01 Last Admin: 03/27/18 08:35 Dose: 1 drop Aspirin (Aspirin) 81 mg PO DAILY AYANNA Stop: 09/25/18 09:01 Last Admin: 03/27/18 08:35 Dose: 81 mg Budesonide/Formoterol Fumarate (Symbicort) 2 puff IH BIDR AYANNA PRN Reason: Protocol Stop: 09/24/18 10:01 Last Admin: 03/27/18 07:30 Dose: 2 puff Chlorhexidine Gluconate (Chlorhexidine Rinse) 15 ml MM BID AYANNA Stop: 09/24/18 09:01 Last Admin: 03/27/18 08:35 Dose: 15 ml Dextrose/Water (Dextrose 50% (Syg)) 25 ml IVP AD PRN PRN Reason: Hypoglycemia Stop: 09/25/18 10:37 Glucagon (Glucagen) 1 mg IM ONCE PRN PRN Reason: Hypoglycemia Stop: 09/25/18 10:37 Glucose (Gluctose) 15 gm PO ONCE PRN PRN Reason: Hypoglycemia Stop: 09/25/18 10:37 Glucose (Gluctose) 30 gm PO ONCE PRN PRN Reason: Hypoglycemia Stop: 09/25/18 10:37 Heparin Sodium (Porcine) (Heparin) 5,000 unit SQ Q12HCO AYANNA Stop: 09/26/18 18:01 Dexmedetomidine HCl (Precedex Premix) 400 mcg in 100 mls @ 5.5 mls/hr IVC .[id number] AYANNA; 0.5 MCG/KG/HR PRN Reason: Protocol Stop: 09/24/18 02:46 Last Titration: 03/27/18 09:00 Dose: 0.3 mcg/kg/hr, 3.3 mls/hr Fentanyl Citrate 1,000 mcg/ (Sodium Chloride) 100 mls @ 5 mls/hr IVC CONT AYANNA; 50 MCG/HR PRN Reason: Protocol Stop: 09/24/18 02:46 Last Titration: 03/27/18 10:00 Dose: 0 mcg/hr, 0 mls/hr Levofloxacin/Dextrose (Levaquin Premix 750mg/150 Ml) 750 mg in 150 mls @ 100 mls/hr IVPB Q24H AYANNA PRN Reason: Protocol Stop: 09/24/18 06:01 Last Infusion: 03/27/18 07:00 Dose: Infused Norepinephrine Bitartrate 4 mg (/ Dextrose) 254 mls @ 1.9 mls/hr IVC CONT AYANNA; 0.5 MCG/MIN PRN Reason: Protocol Stop: 09/24/18 08:31 Last Titration: 03/27/18 08:00 Dose: 0 mcg/min, 0 mls/hr Midazolam HCl 50 mg/ Sodium (Chloride) 100 mls @ 2 mls/hr IVC CONT AYANNA; 1 MG/HR PRN Reason: Protocol Stop: 09/24/18 10:46 Last Titration: 03/27/18 08:30 Dose: 0 mg/hr, 0 mls/hr Dextrose (Dextrose 5%) 1,000 mls @ 100 mls/hr IVC .Q10H PRN PRN Reason: HYPOGLYCEMIA Stop: 09/25/18 10:37 Calcium Gluconate 1,000 mg/ (Sodium Chloride) 110 mls @ 220 mls/hr IVPB Q6HR PRN PRN Reason: Hypocalcemia Stop: 09/26/18 06:45 Magnesium Sulfate 2 gm/ Sodium (Chloride) 104 mls @ 52 mls/hr IVPB Q6H PRN PRN Reason: hypomagnesemia Stop: 09/26/18 06:45 Potassium Chloride (Potassium Chloride 20 Meq/100 Ml) 40 meq in 200 mls @ 100 mls/hr IVPB Q1H PRN PRN Reason: Potassium less than 4 Stop: 09/26/18 06:45 Last Infusion: 03/27/18 10:49 Dose: Infused Sodium Phosphate 30 mmol/ (Sodium Chloride) 260 mls @ 42 mls/hr IVPB Q12H PRN PRN Reason: Hypophosphatemia Stop: 09/26/18 06:45 Insulin Human Lispro (Humalog) 0 units SQ Q6HR AYANNA PRN Reason: Protocol Stop: 09/25/18 12:01 Last Admin: 03/27/18 05:12 Dose: Not Given Methylprednisolone (Solu-Medrol) 40 mg IVP Q6HR AYANNA Stop: 09/24/18 12:01 Last Admin: 03/27/18 05:12 Dose: 40 mg Naloxone HCl (Narcan) 0.4 mg IVP Q2MIN PRN PRN Reason: SEE COMMENTS Stop: 09/24/18 02:41 Pantoprazole Sodium (Protonix) 40 mg IVP 0630 AYANNA Stop: 09/24/18 06:31 Last Admin: 03/27/18 05:12 Dose: 40 mg Potassium Chloride (Potassium Chloride) 40 meq PO DAILY PRN PRN Reason: Hypokalemia Stop: 09/26/18 06:45 Potassium Phos/Sodium Phos (Neutra-Phos) 2 each PO DAILY PRN; Protocol PRN Reason: Hypophosphatemia Stop: 04/11/19 06:45 Last Admin: 03/27/18 08:43 Dose: 2 each Laboratory Tests 03/25/18 03/25/18 03/25/18 03:26 03:26 07:44 WBC Hgb 10.8 L D Potassium Creatinine Troponin I 1.94 H* 2.41 H* 03/25/18 03/25/18 03/26/18 14:20 20:00 03:20 WBC Hgb Potassium Creatinine Troponin I 3.88 H* 3.25 H* 3.43 H* 03/27/18 03/27/18 03/27/18 02:50 02:50 02:50 WBC 18.7 H Hgb 9.2 L Potassium 3.8 Creatinine 0.63 Troponin I 1.35 H* - Imaging and Cardiology Chest Xray: report reviewed Echo: report reviewed - EKG Interpretation EKG results cardiology: other (Telemetry reviewed with average HR previous 12 hours noted to be 105, ST. PVCs and PACs noted.) Consult Discharge Plan - Plan Referrals: Letty Joyce, TALENT DEVELOPMENT MANAGER [Primary Care Provider] -
[2018-03-27 14:50] LABS: Phosphorous 2.9 mg/dL (2.7-4.5); Potassium 5.2 mEq/L (3.5-5.1)
[2018-03-27] MEDS ORDERED: Furosemide 20 MG/2 ML VIAL IVP ONE (15:56)
[2018-03-27] MEDS ORDERED: *HR* Metoprolol 5 MG/5 ML VIAL IVP ONE (15:56)
[2018-03-27] MEDS: *HR* LORazepam 2 MG/ML VIAL IVP PRN ×4 (16:24→23:34)
[2018-03-27] MEDS: *HR* Heparin 5,000 UNIT/ML VIAL SQ SCH (17:45)
[2018-03-28] MEDS: Ipratropium/Albuterol Neb 3 ML IH SCH ×6 (00:06→20:34)
[2018-03-28 01:50] LABS: ABG Base Excess 5 mEq/L (-2 to 3); ABG HCO3 31 mEq/L (21-27); ABG Oxygen Saturation 95 % (95-98); ABG PCO2 52 mmHg (35-45); ABG PH 7.39 pH Units (7.32-7.45); ABG PO2 81 mmHg (85-104); ABG TCO2 33 mEq/L (20-26); Blood Gas Modality NIV; Blood Gas PEEP 8 cm H2O
[2018-03-28 03:09] LABS: Basophils % 0.1 %; Eosinophils % 0.1 %; Hematocrit 32.1 % (35.3-44.9); Immature Granulocytes % 1.4 % (0-4); Lymphocytes # 0.4 K/mcL (0.6-4.6); Lymphocytes % 3.1 %; Mean Corpuscular HGB Conc 31.2 g/dL (31.6-35.5); Mean Corpuscular Hemoglobin 28.2 pg (28.0-33.3); Mean Corpuscular Volume 90.7 fL (83.0-100.0); Mean Platelet Volume 10.1 fL (9.4-12.4); Monocytes # 0.4 K/mcL (0.0-1.3); Monocytes % 3.1 %; Neutrophils # 12.9 K/mcL (1.6-8.9); Platelet Count 241 K/mcL (140-400); Red Blood Count 3.54 M/mcL (3.82-4.97); Red Cell Distribution Width 15.2 % (11.5-14.5); Segmented Neutrophils % 92.2 %
[2018-03-28 03:25] LABS: BUN/Creatinine Ratio 47 (6-26); Blood Urea Nitrogen 27 mg/dL (8-23); Carbon Dioxide 29 mEq/L (23-29); Chloride 103 mEq/L (98-107); Glucose 122 mg/dL (70-105); Magnesium 2.3 mg/dL (1.6-2.6); Osmolality,Calculated 296 (280-300); Phosphorous 3.2 mg/dL (2.7-4.5); Potassium 4.4 mEq/L (3.5-5.1); Sodium 140 mEq/L (136-145); eGFR For Non-African Americans > 60 (> 60)
[2018-03-28 03:30] LABS: INR 1.1; Prothrombin Time 11.9 Seconds (9.4-12.1)
[2018-03-28] MEDS: Insulin LISPRO 300 UNITS/3 ML VIAL SQ SCH ×4 (04:59→23:00)
[2018-03-28] MEDS: Pantoprazole 40 MG VIAL IVP SCH (05:00)
[2018-03-28] MEDS: Levofloxacin 750 MG/150 ML 750 MG/150 ML BAG IVPB SCH (05:03)
[2018-03-28] MEDS: *HR* Heparin 5,000 UNIT/ML VIAL SQ SCH ×3 (05:03→20:18)
[2018-03-28] MEDS: MethylPREDNISolone 40 MG/ML VIAL IVP SCH ×4 (05:03→23:01)
[2018-03-28] MEDS: *HR* LORazepam 2 MG/ML VIAL IVP PRN (05:17)
[2018-03-28] MEDS: Dexmedetomidine HCl 400 MCG/100 ML MLS IVC SCH ×3 (05:40→23:37)
[2018-03-28] MEDS ORDERED: *HR* Metoprolol 5 MG/5 ML VIAL IVP ONE ×2 (06:52→11:07)
--- NOTE | 2018-03-28 07:09 | Pulmonology Progress Note ---
<RobinTatoPrateek W - Last Filed: 03/28/18 08:17> Date of Encounter: 03/28/18 Objective PUL Vital signs: Last Vital Signs Temp 97.6 F 03/28/18 07:43 Pulse 111 03/28/18 07:30 Resp 26 03/28/18 07:57 BP 141/102 03/28/18 07:30 Pulse Ox 96 03/28/18 07:57 Results - Laboratory Findings CBC and BMP: 03/28/18 02:54 03/28/18 02:53 ABG ABG pH 7.39 pH Units (7.32-7.45) 03/28/18 01:44 ABG pCO2 52 mmHg (35-45) H 03/28/18 01:44 ABG pO2 81 mmHg (85-104) L 03/28/18 01:44 ABG O2 Saturation 95 % (95-98) 03/28/18 01:44 PT/INR, D-dimer PT 11.9 Seconds (9.4-12.1) 03/28/18 02:54 Abnormal lab findings: Abnormal lab results WBC 14.0 K/mcL (4.3-11.1) H 03/28/18 02:54 RBC 3.54 M/mcL (3.82-4.97) L 03/28/18 02:54 Hgb 10.0 g/dL (11.5-15.4) L 03/28/18 02:54 Hct 32.1 % (35.3-44.9) L 03/28/18 02:54 MCHC 31.2 g/dL (31.6-35.5) L 03/28/18 02:54 RDW 15.2 % (11.5-14.5) H 03/28/18 02:54 Neutrophils # 12.9 K/mcL (1.6-8.9) H 03/28/18 02:54 Lymphocytes # 0.4 K/mcL (0.6-4.6) L 03/28/18 02:54 Toxic Granulation Present (Not Present) A 03/25/18 03:26 Toxic Vacuolation Present (Not Present) A 03/25/18 03:26 Poikilocytosis 1+ (Not Present) A 03/25/18 14:20 Anisocytosis 1+ (Not Present) A 03/25/18 14:20 Macrocytosis Present (Not Present) A 03/25/18 14:20 Stomatocytes 1+ (Not Present) A 03/25/18 14:20 ABG pCO2 52 mmHg (35-45) H 03/28/18 01:44 ABG pO2 81 mmHg (85-104) L 03/28/18 01:44 ABG HCO3 31 mEq/L (21-27) H 03/28/18 01:44 ABG Total CO2 33 mEq/L (20-26) H 03/28/18 01:44 ABG Base Excess 5 mEq/L (-2 to 3) H 03/28/18 01:44 BUN 27 mg/dL (8-23) H 03/28/18 02:53 Creatinine 0.58 mg/dL (0.60-1.20) L 03/28/18 02:53 BUN/Creatinine Ratio 47 (6-26) H 03/28/18 02:53 Glucose 122 mg/dL (70-105) H 03/28/18 02:53 POC Glucose 112 mg/dL (70-99) H 03/28/18 07:14 Hemoglobin A1c 5.7 % (-5.6) H 03/27/18 02:50 Total Bilirubin 0.2 mg/dL (0.3-1.0) L 03/27/18 02:50 AST 43 Units/L (13-39) H 03/27/18 02:50 ALT 58 Units/L (7-52) H 03/27/18 02:50 Troponin I 1.35 ng/mL (< 0.04) H* 03/27/18 02:50 Serum Total Protein 5.8 g/dL (6.4-8.9) L 03/27/18 02:50 Albumin 3.2 g/dL (3.5-5.7) L 03/27/18 02:50 - Microbiology Findings Microbiology Findings: Microbiology, Last 48 Hours 03/25/18 06:15 Sputum Culture - Preliminary Sputum - Clinical Findings Intake & Output: Intake & Output 03/27/18 03/28/18 03/28/18 23:59 07:59 15:59 Intake Total 38.4 / 38.4 34.6 / 34.6 Output Total 1350 / 1350 700 / 700 Balance -1311.6 / -1311.6 -665.4 / -665.4 Consult Discharge Plan - Plan Referrals: Letty Joyce, NETEZZA DEVELOPER [Primary Care Provider] - - Attending Attestation I examined this patient and my medical decision-making was reviewed with the Resident Physician. I agree with the documented findings, disposition and treatment plan as described except to the extent set forth below. We independently had [id number] contact with the patient Patient seen and examined at bedside Labs, radiology, chart personally reviewed. Management was reviewed during multidisciplinary critical care rounds. WELLNESS MANAGER: The patient is awake and alert remains anxious scheduling benzodiazepine as she is a chronic user of this. Pulm: Hypoxic hypercapnic respiratory failure acceptable gas exchange and today remains on BiPAP we will try to wean nasal cannula she is a severe COPD exacerbation and severe community-acquired pneumonia continue bronchodilators and IV steroids Cards: Hypertensive and tachycardia noted over last 24 hours she has acute systolic heart failure likely stress-induced cardiomyopathy cardiology following we will try to optimize her beta andreea regimen continue aspirin we will introduce statin once able to take by mouth cardiology following may need left heart catheterization prior to discharge GI: Continue to monitor Nutrition: Advance diet once patient Is tolerating by mouth currently respiratory status is tenuous and would not advise diet Renal: UOP Monitored, Cont to Trend sCr and monitor Electrolytes. ID: Severe community-acquired pneumonia on Levaquin cultures remain negative white count improving remains afebrile clinically improving Heme/Onc: DVT prophylaxis given Endo: Glucose Monitored Integ/MSK: Skin Care per routine ICU Nursing Protocol to prevent ulcers. Lines: All lines examined without evidence of infection : Dispo: Monitor in ICU today because of respiratory failure and tenuous status on BiPAP high risk for further deterioration requiring reintubation CODE: Full I updated her Thomas at bedside <ShayJama R - Last Filed: 03/28/18 11:51> Date of Encounter: 03/28/18 Time of Encounter: 07:09 Assessment and Plan (1) Acute and chronic respiratory failure with hypercapnia Current Visit: Yes Status: Acute Acute on chronic respiratory failure with hypoxia and hypercapnia. Patient initially required intubation and ventilation for management. Likely secondary to sepsis in the setting of pneumonia and COPD exacerbation. Chest x-ray did not reveal evidence of acute pulmonary embolism. Patient was extubated to BiPAP yesterday. She remained on BiPAP overnight. She is tachycardic and tachypneic. Will try to control agitation and wean BiPAP as patient tolerates. Patient is on Xanax when necessary 3 times a day at home, anxiety will likely be a problem for her and will be difficult to control. Will start scheduled Ativan doses 1 mg every 4 hours, and 2 mg morphine in alternation with Ativan. Will consider addition of atypical antipsychotics such as Seroquel if needed. Increase metoprolol to 25 mg 3 times a day. Will trial gentle diuresis this a.m. (2) Sepsis Current Visit: Yes Status: Acute Patient did meet sepsis criteria for admission with suspected source of infection as pneumonia with an associated COPD exacerbation. Vital signs remained stable, afebrile. WBC is trending downward. Lactate normalized, troponins trending downward. Blood cultures were drawn in the [place] ED, negative growth to date will continue to follow. Patient on day 4 of antibiotics with Levaquin. Right femoral central venous catheter remains in place Qualifiers: Sepsis type: sepsis due to unspecified organism Qualified Code(s): A41.9 - Sepsis, unspecified organism (3) Pneumonia Current Visit: Yes Status: Acute Chest x-ray and CT chest with findings consistent with community-acquired pneumonia. Patient on day 4 of antibiotic therapy with Levaquin. Strep pneumonia and legionella antigens negative, MRSA nasal swab negative. Respiratory panel negative, preliminary sputum culture negative. Blood cultures with negative growth to date. Will continue antibiotic coverage with Levaquin. Qualifiers: Pneumonia type: due to unspecified organism Laterality: bilateral Lung location: lower lobe of lung Qualified Code(s): J18.1 - Lobar pneumonia, unspecified organism (4) Elevated troponin Current Visit: Yes Status: Acute Elevated troponins since admission, troponins are now trending downward, most likely related to demand ischemia in the setting of sepsis, pneumonia, respiratory failure, and COPD exacerbation. No chest pain at presentation, patient denies chest pain currently. Echocardiogram does reveal evidence of stress-induced cardiomyopathy with an associated ejection fraction of 30-35% Cardiology consultation, appreciate the recommendations. Heparin drip discontinued yesterday. Continue with aspirin daily. Resuming beta andreea therapy with metoprolol 25 mg 3 times a day, and will titrate as necessary. No plan for cardiology intervention at this time, cardiology is following and will continue to assess whether she will need intervention prior to discharge (5) Transaminitis Current Visit: Yes Status: Acute Mild elevation of liver transaminases on admission. Repeat labs revealed normalizing AST and ALTs. Liver ultrasound within normal limits. Enzyme elevation likely related to generalized illness. We will avoid hepatotoxic agents at this time. (6) Hyperglycemia Current Visit: Yes Status: Acute Patient is currently nothing by mouth since extubation. We will continue with low-dose sliding scale as needed, may adjust after patient resumes feeding. (7) Hypertension Current Visit: Yes Status: Acute Patient is has history of hypertension on metoprolol 25 mg extended release at home. Initially required vasopressor support during this admission, was weaned yesterday with improvement in blood pressure. Today patient is hypertensive with systolic blood pressure in the 160s. This is likely related to anxiety and stress response. Patient did receive 5 mg IV metoprolol this a.m. and will resume by mouth metoprolol 25 mg 3 times a day this afternoon. May titrate dose as needed for desired effect. Qualifiers: Hypertension type: essential hypertension Qualified Code(s): I10 - Essential (primary) hypertension (8) DVT prophylaxis Current Visit: Yes Status: Acute Continue DVT prophylaxis with heparin SQ 3 times a day. Subjective Principal diagnosis: Shortness of breath Interval history: No acute events overnight. Patient had become mildly agitated when given bath, however this has been well-controlled with sedation. She is arousable and following commands. Objective PUL Vital signs: Last Vital Signs Temp 97.5 F L 03/28/18 04:00 Pulse 121 03/28/18 06:00 Resp 23 03/28/18 06:00 BP 162/112 03/28/18 06:00 Pulse Ox 93 03/28/18 04:58 Eyes: nonicteric ENT: oropharynx moist Neck: supple, no lymphadenopathy Results - Laboratory Findings CBC and BMP: 03/28/18 02:54 03/28/18 02:53 ABG ABG pH 7.39 pH Units (7.32-7.45) 03/28/18 01:44 ABG pCO2 52 mmHg (35-45) H 03/28/18 01:44 ABG pO2 81 mmHg (85-104) L 03/28/18 01:44 ABG O2 Saturation 95 % (95-98) 03/28/18 01:44 PT/INR, D-dimer PT 11.9 Seconds (9.4-12.1) 03/28/18 02:54 Abnormal lab findings: Abnormal lab results WBC 14.0 K/mcL (4.3-11.1) H 03/28/18 02:54 RBC 3.54 M/mcL (3.82-4.97) L 03/28/18 02:54 Hgb 10.0 g/dL (11.5-15.4) L 03/28/18 02:54 Hct 32.1 % (35.3-44.9) L 03/28/18 02:54 MCHC 31.2 g/dL (31.6-35.5) L 03/28/18 02:54 RDW 15.2 % (11.5-14.5) H 03/28/18 02:54 Neutrophils # 12.9 K/mcL (1.6-8.9) H 03/28/18 02:54 Lymphocytes # 0.4 K/mcL (0.6-4.6) L 03/28/18 02:54 Toxic Granulation Present (Not Present) A 03/25/18 03:26 Toxic Vacuolation Present (Not Present) A 03/25/18 03:26 Poikilocytosis 1+ (Not Present) A 03/25/18 14:20 Anisocytosis 1+ (Not Present) A 03/25/18 14:20 Macrocytosis Present (Not Present) A 03/25/18 14:20 Stomatocytes 1+ (Not Present) A 03/25/18 14:20 ABG pCO2 52 mmHg (35-45) H 03/28/18 01:44 ABG pO2 81 mmHg (85-104) L 03/28/18 01:44 ABG HCO3 31 mEq/L (21-27) H 03/28/18 01:44 ABG Total CO2 33 mEq/L (20-26) H 03/28/18 01:44 ABG Base Excess 5 mEq/L (-2 to 3) H 03/28/18 01:44 BUN 27 mg/dL (8-23) H 03/28/18 02:53 Creatinine 0.58 mg/dL (0.60-1.20) L 03/28/18 02:53 BUN/Creatinine Ratio 47 (6-26) H 03/28/18 02:53 Glucose 122 mg/dL (70-105) H 03/28/18 02:53 POC Glucose 107 mg/dL (70-99) H 03/27/18 23:14 Hemoglobin A1c 5.7 % (-5.6) H 03/27/18 02:50 Total Bilirubin 0.2 mg/dL (0.3-1.0) L 03/27/18 02:50 AST 43 Units/L (13-39) H 03/27/18 02:50 ALT 58 Units/L (7-52) H 03/27/18 02:50 Troponin I 1.35 ng/mL (< 0.04) H* 03/27/18 02:50 Serum Total Protein 5.8 g/dL (6.4-8.9) L 03/27/18 02:50 Albumin 3.2 g/dL (3.5-5.7) L 03/27/18 02:50 - Microbiology Findings Microbiology Findings: Microbiology, Last 48 Hours 03/25/18 06:15 Sputum Culture - Preliminary Sputum - Clinical Findings Intake & Output: Intake & Output 03/27/18 03/27/18 03/28/18 15:59 23:59 07:59 Intake Total 523 / 523 38.4 / 38.4 34.6 / 34.6 Output Total 100 / 100 1350 / 1350 500 / 500 Balance 423 / 423 -1311.6 / -1311.6 -465.4 / -465.4
[2018-03-28] MEDS ORDERED: Furosemide 20 MG/2 ML VIAL IVP ONE (07:26)
[2018-03-28] MEDS: Budesonide/Formoterol 160/4.5 1 PUFF INH IH SCH ×2 (07:56→20:34)
[2018-03-28] MEDS: *HR* LORazepam 2 MG/ML VIAL IVP SCH ×5 (09:03→21:03)
[2018-03-28] MEDS: Artificial Tears SOLN 15 ML BOTTLE BOTH EYES SCH ×5 (09:04→20:27)
[2018-03-28] MEDS: Norepinephrine 4 MG in D5% in Water 250 ML IVC SCH (09:07)
[2018-03-28] MEDS: Aspirin 81 MG TAB.CHEW PO SCH (09:07)
[2018-03-28] MEDS: Chlorhexidine Rinse 15 ML MOUTHWASH MM SCH ×2 (09:07→18:32)
[2018-03-28] MEDS: *HR* Morphine 2 MG/ML SYRINGE IVP PRN ×3 (11:42→23:49)
[2018-03-28] MEDS: Nicotine 21 MG PATCH.TD24 TD SCH (11:43)
[2018-03-28 15:02] LABS: BUN/Creatinine Ratio 48 (6-26); Blood Urea Nitrogen 29 mg/dL (8-23); Calcium 8.9 mg/dL (8.6-10.3); Carbon Dioxide 34 mEq/L (23-29); Chloride 101 mEq/L (98-107); Glucose 121 mg/dL (70-105); Magnesium 2.3 mg/dL (1.6-2.6); Osmolality,Calculated 299 (280-300); Potassium 4.1 mEq/L (3.5-5.1); Sodium 141 mEq/L (136-145); eGFR For Non-African Americans > 60 (> 60)
[2018-03-29] MEDS: Ipratropium/Albuterol Neb 3 ML IH SCH ×6 (00:01→19:46)
[2018-03-29] MEDS: *HR* LORazepam 2 MG/ML VIAL IVP SCH ×5 (03:06→21:21)
[2018-03-29 03:22] LABS: Basophils % 0.1 %; Hematocrit 32.8 % (35.3-44.9); Hemoglobin 10.2 g/dL (11.5-15.4); Immature Granulocytes % 0.5 % (0-4); Lymphocytes # 0.5 K/mcL (0.6-4.6); Mean Corpuscular HGB Conc 31.1 g/dL (31.6-35.5); Mean Corpuscular Hemoglobin 27.7 pg (28.0-33.3); Mean Corpuscular Volume 89.1 fL (83.0-100.0); Monocytes # 0.3 K/mcL (0.0-1.3); Monocytes % 3.4 %; Platelet Count 250 K/mcL (140-400); Red Blood Count 3.68 M/mcL (3.82-4.97); Red Cell Distribution Width 15.3 % (11.5-14.5)
[2018-03-29 03:28] LABS: Neutrophils # 6.8 K/mcL (1.6-8.9)
[2018-03-29 03:41] LABS: BUN/Creatinine Ratio 60 (6-26); Blood Urea Nitrogen 37 mg/dL (8-23); Calcium 9.1 mg/dL (8.6-10.3); Carbon Dioxide 32 mEq/L (23-29); Chloride 102 mEq/L (98-107); Glucose 120 mg/dL (70-105); Magnesium 2.3 mg/dL (1.6-2.6); Osmolality,Calculated 304 (280-300); Phosphorous 3.2 mg/dL (2.7-4.5); Potassium 4.3 mEq/L (3.5-5.1); Sodium 142 mEq/L (136-145); eGFR For Non-African Americans > 60 (> 60)
[2018-03-29] MEDS: *HR* Morphine 2 MG/ML SYRINGE IVP PRN ×3 (04:03→13:12)
[2018-03-29] MEDS: Insulin LISPRO 300 UNITS/3 ML VIAL SQ SCH ×3 (04:04→17:55)
[2018-03-29] MEDS: *HR* Heparin 5,000 UNIT/ML VIAL SQ SCH ×3 (05:00→21:21)
[2018-03-29] MEDS: MethylPREDNISolone 40 MG/ML VIAL IVP SCH ×3 (05:01→10:58)
[2018-03-29] MEDS: Pantoprazole 40 MG VIAL IVP SCH (05:01)
[2018-03-29] MEDS: Levofloxacin 750 MG/150 ML 750 MG/150 ML BAG IVPB SCH (05:01)
--- NOTE | 2018-03-29 07:14 | Pulmonology Progress Note ---
<RobinPrateek W - Last Filed: 03/29/18 08:52> Date of Encounter: 03/29/18 Objective PUL Vital signs: Last Vital Signs Temp 97.6 F 03/29/18 08:00 Pulse 113 03/29/18 08:00 Resp 32 03/29/18 08:24 BP 150/95 03/29/18 08:00 Pulse Ox 98 03/29/18 08:24 Results - Laboratory Findings CBC and BMP: 03/29/18 03:05 03/29/18 03:05 ABG ABG pH 7.39 pH Units (7.32-7.45) 03/28/18 01:44 ABG pCO2 52 mmHg (35-45) H 03/28/18 01:44 ABG pO2 81 mmHg (85-104) L 03/28/18 01:44 ABG O2 Saturation 95 % (95-98) 03/28/18 01:44 PT/INR, D-dimer PT 11.9 Seconds (9.4-12.1) 03/28/18 02:54 Abnormal lab findings: Abnormal lab results RBC 3.68 M/mcL (3.82-4.97) L 03/29/18 03:05 Hgb 10.2 g/dL (11.5-15.4) L 03/29/18 03:05 Hct 32.8 % (35.3-44.9) L 03/29/18 03:05 MCH 27.7 pg (28.0-33.3) L 03/29/18 03:05 MCHC 31.1 g/dL (31.6-35.5) L 03/29/18 03:05 RDW 15.3 % (11.5-14.5) H 03/29/18 03:05 Lymphocytes # 0.5 K/mcL (0.6-4.6) L 03/29/18 03:05 Toxic Granulation Present (Not Present) A 03/25/18 03:26 Toxic Vacuolation Present (Not Present) A 03/25/18 03:26 Poikilocytosis 1+ (Not Present) A 03/25/18 14:20 Anisocytosis 1+ (Not Present) A 03/25/18 14:20 Macrocytosis Present (Not Present) A 03/25/18 14:20 Stomatocytes 1+ (Not Present) A 03/25/18 14:20 ABG pCO2 52 mmHg (35-45) H 03/28/18 01:44 ABG pO2 81 mmHg (85-104) L 03/28/18 01:44 ABG HCO3 31 mEq/L (21-27) H 03/28/18 01:44 ABG Total CO2 33 mEq/L (20-26) H 03/28/18 01:44 ABG Base Excess 5 mEq/L (-2 to 3) H 03/28/18 01:44 Carbon Dioxide 32 mEq/L (23-29) H 03/29/18 03:05 BUN 37 mg/dL (8-23) H 03/29/18 03:05 BUN/Creatinine Ratio 60 (6-26) H 03/29/18 03:05 Glucose 120 mg/dL (70-105) H 03/29/18 03:05 POC Glucose 103 mg/dL (70-99) H 03/28/18 22:34 Hemoglobin A1c 5.7 % (-5.6) H 03/27/18 02:50 Calculated Osmolality 304 (280-300) H 03/29/18 03:05 Total Bilirubin 0.2 mg/dL (0.3-1.0) L 03/27/18 02:50 AST 43 Units/L (13-39) H 03/27/18 02:50 ALT 58 Units/L (7-52) H 03/27/18 02:50 Troponin I 1.35 ng/mL (< 0.04) H* 03/27/18 02:50 Serum Total Protein 5.8 g/dL (6.4-8.9) L 03/27/18 02:50 Albumin 3.2 g/dL (3.5-5.7) L 03/27/18 02:50 - Microbiology Findings Microbiology Findings: Microbiology, Last 48 Hours 03/25/18 06:15 Sputum Culture - Final Sputum - Clinical Findings Intake & Output: Intake & Output 03/28/18 03/29/18 03/29/18 23:59 07:59 15:59 Intake Total 350 / 350 150 / 150 Output Total 800 / 800 100 / 100 250 / 250 Balance -450 / -450 50 / 50 -250 / -250 Weight 45.5 kg Consult Discharge Plan - Plan Referrals: Letty Joyce, FURNIT[employer] P[employer]ER [Primary Care Provider] - - Attending Attestation I examined this patient and my medical decision-making was reviewed with the Resident Physician. I agree with the documented findings, disposition and treatment plan as described except to the extent set forth below. We independently had [id number] contact with the patient Patient seen and examined at bedside Labs, radiology, chart personally reviewed. Management was reviewed during multidisciplinary critical care rounds. PHYSICAL THERAPY ATTENDANT: The patient remains anxious and having difficult time breathing which is in a large part a vicious cycle of anxiety hyperinflation and worsening breathlessness. She is responding better now with use of morphine and Ativan we have been able to lower the Precedex down Pulm: Acute on chronic hypoxic hypercapnic respiratory failure SECONDARY to severe pneumonia with COPD exacerbation she remains on BiPAP throughout the day we are able to take it off for sure. Obtained a day and have a sip of water and believe that her breathlessness is more the issue as opposed to worsening respiratory status that requires her to maintain on positive airway pressure. Cards: Troponin elevation likely demand ischemia with evidence of reduced ejection fraction overall pattern is probably more consistent with stress- induced cardiomyopathy as opposed to true non-ST elevation [place] cardiology following she is on beta andreea and aspirin statin on hold because of LFT abnormalities GI: Continue to monitor Nutrition: Would advance diet off BiPAP for more prolonged period of time could consider TPN in the short-term if she continues to remain on BiPAP Renal: UOP Monitored, Cont to Trend sCr and monitor Electrolytes. ID: She is being treated for severe community-acquired pneumonia course of therapy should be 7-10 days white count has normalized Heme/Onc: DVT prophylaxis given Endo: Glucose Monitored Integ/MSK: Skin Care per routine ICU Nursing Protocol to prevent ulcers. Lines: All lines examined without evidence of infection : Plan to remove the femoral catheter today Dispo: Remain in ICU because of respiratory failure CODE: Full <Alexys Correia - Last Filed: 03/29/18 09:24> Date of Encounter: 03/29/18 Time of Encounter: 09:06 Assessment and Plan (1) Sepsis Current Visit: Yes Status: Acute Qualifiers: Sepsis type: sepsis due to unspecified organism Qualified Code(s): A41.9 - Sepsis, unspecified organism (2) Pneumonia Current Visit: Yes Status: Acute Qualifiers: Pneumonia type: due to unspecified organism Laterality: bilateral Lung location: lower lobe of lung Qualified Code(s): J18.1 - Lobar pneumonia, unspecified organism (3) DVT prophylaxis Current Visit: Yes Status: Acute (4) Elevated troponin Current Visit: Yes Status: Acute (5) Acute and chronic respiratory failure with hypercapnia Current Visit: Yes Status: Acute (6) Transaminitis Current Visit: Yes Status: Acute (7) Hyperglycemia Current Visit: Yes Status: Acute (8) Hypertension Current Visit: Yes Status: Acute Qualifiers: Hypertension type: essential hypertension Qualified Code(s): I10 - Essential (primary) hypertension Subjective Principal diagnosis: Shortness of breath Interval history: Patient is a 72-year-old female with a history of COPD presenting from [place] emergency department with pneumonia and respiratory failure. Patient was initially intubated at [place] ED on 03/25/2018 with extubation at [facility] ICU on 03/27/2018. Patient was weaned from the ventilator successfully and placed on BiPAP with continued progression to oxygen mask. Oxygen saturation is currently 98% on 8 L/m on oxygen face mask. Patient is asleep and minimally responsive during examination, with intermittent awake episodes noted throughout the morning-patient continues to be confused at baseline. Patient work of breathing appears to be mildly labored- but not in acute distress. We will continue to adapt oxygen therapy as well as steroids/bronchodilators in accordance with medical assessment. Objective PUL Vital signs: Last Vital Signs Temp 97.9 F 03/29/18 03:04 Pulse 96 03/29/18 06:00 Resp 25 03/29/18 06:00 BP 123/84 03/29/18 06:00 Pulse Ox 95 03/29/18 06:00 General appearance: no acute distress, asleep Auscultation: bilateral: wheezes Cardiovascular: regular rate and rhythm Gastrointestinal: normoactive bowel sounds Extremities: no cyanosis, pulses normal, cool (Patient's left foot is cool to the touch. Dorsalis pedis pulses are present bilaterally) Results - Laboratory Findings CBC and BMP: 03/29/18 03:05 03/29/18 03:05 ABG ABG pH 7.39 pH Units (7.32-7.45) 03/28/18 01:44 ABG pCO2 52 mmHg (35-45) H 03/28/18 01:44 ABG pO2 81 mmHg (85-104) L 03/28/18 01:44 ABG O2 Saturation 95 % (95-98) 03/28/18 01:44 PT/INR, D-dimer PT 11.9 Seconds (9.4-12.1) 03/28/18 02:54 Abnormal lab findings: Abnormal lab results RBC 3.68 M/mcL (3.82-4.97) L 03/29/18 03:05 Hgb 10.2 g/dL (11.5-15.4) L 03/29/18 03:05 Hct 32.8 % (35.3-44.9) L 03/29/18 03:05 MCH 27.7 pg (28.0-33.3) L 03/29/18 03:05 MCHC 31.1 g/dL (31.6-35.5) L 03/29/18 03:05 RDW 15.3 % (11.5-14.5) H 03/29/18 03:05 Lymphocytes # 0.5 K/mcL (0.6-4.6) L 03/29/18 03:05 Toxic Granulation Present (Not Present) A 03/25/18 03:26 Toxic Vacuolation Present (Not Present) A 03/25/18 03:26 Poikilocytosis 1+ (Not Present) A 03/25/18 14:20 Anisocytosis 1+ (Not Present) A 03/25/18 14:20 Macrocytosis Present (Not Present) A 03/25/18 14:20 Stomatocytes 1+ (Not Present) A 03/25/18 14:20 ABG pCO2 52 mmHg (35-45) H 03/28/18 01:44 ABG pO2 81 mmHg (85-104) L 03/28/18 01:44 ABG HCO3 31 mEq/L (21-27) H 03/28/18 01:44 ABG Total CO2 33 mEq/L (20-26) H 03/28/18 01:44 ABG Base Excess 5 mEq/L (-2 to 3) H 03/28/18 01:44 Carbon Dioxide 32 mEq/L (23-29) H 03/29/18 03:05 BUN 37 mg/dL (8-23) H 03/29/18 03:05 BUN/Creatinine Ratio 60 (6-26) H 03/29/18 03:05 Glucose 120 mg/dL (70-105) H 03/29/18 03:05 POC Glucose 103 mg/dL (70-99) H 03/28/18 22:34 Hemoglobin A1c 5.7 % (-5.6) H 03/27/18 02:50 Calculated Osmolality 304 (280-300) H 03/29/18 03:05 Total Bilirubin 0.2 mg/dL (0.3-1.0) L 03/27/18 02:50 AST 43 Units/L (13-39) H 03/27/18 02:50 ALT 58 Units/L (7-52) H 03/27/18 02:50 Troponin I 1.35 ng/mL (< 0.04) H* 03/27/18 02:50 Serum Total Protein 5.8 g/dL (6.4-8.9) L 03/27/18 02:50 Albumin 3.2 g/dL (3.5-5.7) L 03/27/18 02:50 - Microbiology Findings Microbiology Findings: Microbiology, Last 48 Hours 03/25/18 06:15 Sputum Culture - Final Sputum - Clinical Findings Intake & Output: Intake & Output 03/28/18 03/28/18 03/29/18 15:59 23:59 07:59 Intake Total 350 / 350 150 / 150 Output Total 1575 / 1575 800 / 800 100 / 100 Balance -1575 / -1575 -450 / -450 50 / 50 Weight 45.5 kg
[2018-03-29] MEDS: Norepinephrine 4 MG in D5% in Water 250 ML IVC SCH (07:40)
[2018-03-29] MEDS: Chlorhexidine Rinse 15 ML MOUTHWASH MM SCH ×2 (07:41→21:21)
[2018-03-29] MEDS: Artificial Tears SOLN 15 ML BOTTLE BOTH EYES SCH ×4 (07:41→21:22)
[2018-03-29] MEDS: Nicotine 21 MG PATCH.TD24 TD SCH (07:50)
[2018-03-29] MEDS: Aspirin 81 MG TAB.CHEW PO SCH (07:50)
[2018-03-29] MEDS ORDERED: Albuterol 2.5 MG/3 ML NEBULIZER IH PRN (08:12)
[2018-03-29] MEDS ORDERED: Albuterol 2.5 MG/3 ML NEBULIZER ONE (08:13)
[2018-03-29] MEDS: Budesonide/Formoterol 160/4.5 1 PUFF INH IH SCH ×2 (08:23→19:46)
[2018-03-29] MEDS: Dexmedetomidine HCl 400 MCG/100 ML MLS IVC SCH (10:47)
[2018-03-30] MEDS: Ipratropium/Albuterol Neb 3 ML IH SCH ×6 (00:01→20:15)
[2018-03-30] MEDS: Artificial Tears SOLN 15 ML BOTTLE BOTH EYES SCH ×6 (00:10→19:59)
[2018-03-30] MEDS: Insulin LISPRO 300 UNITS/3 ML VIAL SQ SCH ×4 (00:11→17:40)
[2018-03-30] MEDS: MethylPREDNISolone 40 MG/ML VIAL IVP SCH ×4 (00:13→17:24)
[2018-03-30] MEDS: *HR* LORazepam 2 MG/ML VIAL IVP SCH ×6 (01:12→22:10)
[2018-03-30] MEDS: FentaNYL (PF) 1,000 MCG in 0.9 % Sodium Chloride 80 ML IVC SCH (03:06)
[2018-03-30 04:01] LABS: Basophils % 0.1 %; Eosinophils % 0.1 %; Hematocrit 32.1 % (35.3-44.9); Immature Granulocytes % 0.7 % (0-4); Lymphocytes # 0.5 K/mcL (0.6-4.6); Lymphocytes % 5.8 %; Mean Corpuscular HGB Conc 31.2 g/dL (31.6-35.5); Mean Corpuscular Hemoglobin 27.9 pg (28.0-33.3); Mean Corpuscular Volume 89.7 fL (83.0-100.0); Mean Platelet Volume 10.1 fL (9.4-12.4); Monocytes # 0.6 K/mcL (0.0-1.3); Monocytes % 6.5 %; Neutrophils # 7.6 K/mcL (1.6-8.9); Platelet Count 229 K/mcL (140-400); Red Blood Count 3.58 M/mcL (3.82-4.97); Red Cell Distribution Width 15.1 % (11.5-14.5); Segmented Neutrophils % 86.8 %
[2018-03-30 04:19] LABS: BUN/Creatinine Ratio 70 (6-26); Blood Urea Nitrogen 39 mg/dL (8-23); Carbon Dioxide 33 mEq/L (23-29); Chloride 104 mEq/L (98-107); Glucose 111 mg/dL (70-105); Magnesium 2.4 mg/dL (1.6-2.6); Osmolality,Calculated 304 (280-300); Potassium 4.3 mEq/L (3.5-5.1); Sodium 142 mEq/L (136-145); eGFR For Non-African Americans > 60 (> 60)
[2018-03-30] MEDS: Levofloxacin 750 MG/150 ML 750 MG/150 ML BAG IVPB SCH (05:55)
[2018-03-30] MEDS: Dexmedetomidine HCl 400 MCG/100 ML MLS IVC SCH (05:55)
[2018-03-30] MEDS: *HR* Heparin 5,000 UNIT/ML VIAL SQ SCH ×3 (05:55→19:39)
--- NOTE | 2018-03-30 06:38 | Pulmonology Progress Note ---
Date of Encounter: 03/30/18 Time of Encounter: 06:38 Assessment and Plan (1) Acute and chronic respiratory failure with hypoxia Current Visit: No Status: Resolved This is secondary to pneumonia and COPD exacerbation She was successfully liberated from the ventilator however She remains BiPAP dependent for most of the day Refill again try to go off BiPAP for more prolonged periods of time to nasal cannula (2) Pneumonia Current Visit: Yes Status: Acute She will be treated for 7 days for severe community acquired pneumonia white count has normalized she remains afebrile Qualifiers: Pneumonia type: due to unspecified organism Laterality: bilateral Lung location: lower lobe of lung Qualified Code(s): J18.1 - Lobar pneumonia, unspecified organism (3) Acute exacerbation of chronic obstructive pulmonary disease (COPD) Current Visit: Yes Status: Acute Continue IV steroids and bronchodilators continue Symbicort she has ESCOPD (4) Cardiomyopathy Current Visit: Yes Status: Acute Patient presented with NSTEMI likely secondary to stress-induced cardiomyopathy cardiology following she is on aspirin and beta andreea for this Qualifiers: Cardiomyopathy type: unspecified Qualified Code(s): I42.9 - Cardiomyopathy , unspecified (5) Cachexia Current Visit: No Status: Chronic Patient with high caloric requirement has not been fully take adequate nutrition via mouth because of BiPAP dependency since liberation from the vent. Given her underlying cachexia I would discuss with nutrition about TPN on a short-term basis until she can be weaned from BiPAP on a more consistent basis to take by mouth this decision was made because of the high caloric metabolic requirements of acute respiratory failure we will aim for a low carbohydrate formulation (6) DVT prophylaxis Current Visit: Yes Status: Acute cont Heparin Subjective Principal diagnosis: Shortness of breath Interval history: Ms Burnham has done relatively well in the last 24 hours. She was able to come off BiPAP for 2 hours at a time yesterday was able to take some sips of liquid but could not intake any significant amount of nutrition. She still has increased work of breathing and anxiety. When I spoke with her she was feeling relatively comfortable Objective PUL Vital signs: Last Vital Signs Temp 97.6 F 03/30/18 03:41 Pulse 95 03/30/18 06:00 Resp 28 03/30/18 06:00 BP 112/95 03/30/18 06:00 Pulse Ox 93 03/30/18 06:00 General appearance: no acute distress, other (Thin and frail appearing) Eyes: nonicteric Effort: very labored Auscultation: bilateral: wheezes Cardiovascular: regular rate and rhythm Gastrointestinal: normoactive bowel sounds, soft, non-tender Integumentary: other (Thin skin with areas of ecchymoses) Extremities: no cyanosis, no edema, no clubbing, pulses normal Musculoskeletal: no deformities non-focal exam, pupils equal and round anxious (Mildly) Results - Laboratory Findings CBC and BMP: 03/30/18 03:43 03/30/18 03:43 ABG ABG pH 7.39 pH Units (7.32-7.45) 03/28/18 01:44 ABG pCO2 52 mmHg (35-45) H 03/28/18 01:44 ABG pO2 81 mmHg (85-104) L 03/28/18 01:44 ABG O2 Saturation 95 % (95-98) 03/28/18 01:44 PT/INR, D-dimer PT 11.9 Seconds (9.4-12.1) 03/28/18 02:54 Abnormal lab findings: Abnormal lab results RBC 3.58 M/mcL (3.82-4.97) L 03/30/18 03:43 Hgb 10.0 g/dL (11.5-15.4) L 03/30/18 03:43 Hct 32.1 % (35.3-44.9) L 03/30/18 03:43 MCH 27.9 pg (28.0-33.3) L 03/30/18 03:43 MCHC 31.2 g/dL (31.6-35.5) L 03/30/18 03:43 RDW 15.1 % (11.5-14.5) H 03/30/18 03:43 Lymphocytes # 0.5 K/mcL (0.6-4.6) L 03/30/18 03:43 Toxic Granulation Present (Not Present) A 03/25/18 03:26 Toxic Vacuolation Present (Not Present) A 03/25/18 03:26 Poikilocytosis 1+ (Not Present) A 03/25/18 14:20 Anisocytosis 1+ (Not Present) A 03/25/18 14:20 Macrocytosis Present (Not Present) A 03/25/18 14:20 Stomatocytes 1+ (Not Present) A 03/25/18 14:20 ABG pCO2 52 mmHg (35-45) H 03/28/18 01:44 ABG pO2 81 mmHg (85-104) L 03/28/18 01:44 ABG HCO3 31 mEq/L (21-27) H 03/28/18 01:44 ABG Total CO2 33 mEq/L (20-26) H 03/28/18 01:44 ABG Base Excess 5 mEq/L (-2 to 3) H 03/28/18 01:44 Carbon Dioxide 33 mEq/L (23-29) H 03/30/18 03:43 BUN 39 mg/dL (8-23) H 03/30/18 03:43 Creatinine 0.56 mg/dL (0.60-1.20) L 03/30/18 03:43 BUN/Creatinine Ratio 70 (6-26) H 03/30/18 03:43 Glucose 111 mg/dL (70-105) H 03/30/18 03:43 Hemoglobin A1c 5.7 % (-5.6) H 03/27/18 02:50 Calculated Osmolality 304 (280-300) H 03/30/18 03:43 Total Bilirubin 0.2 mg/dL (0.3-1.0) L 03/27/18 02:50 AST 43 Units/L (13-39) H 03/27/18 02:50 ALT 58 Units/L (7-52) H 03/27/18 02:50 Troponin I 1.35 ng/mL (< 0.04) H* 03/27/18 02:50 Serum Total Protein 5.8 g/dL (6.4-8.9) L 03/27/18 02:50 Albumin 3.2 g/dL (3.5-5.7) L 03/27/18 02:50 - Microbiology Findings Microbiology Findings: Microbiology, Last 48 Hours 03/25/18 06:15 Sputum Culture - Final Sputum - Clinical Findings Intake & Output: Intake & Output 03/29/18 03/29/18 03/30/18 15:59 23:59 07:59 Intake Total 100 / 100 100 / 100 Output Total 300 / 300 425 / 425 125 / 125 Balance -200 / -200 -425 / -425 -25 / -25 Weight 45.6 kg 45.6 kg Consult Discharge Plan - Plan Referrals: Letty Joyce, GERMAINE [Primary Care Provider] -
[2018-03-30] MEDS: Budesonide/Formoterol 160/4.5 1 PUFF INH IH SCH ×2 (07:40→20:15)
[2018-03-30] MEDS: Norepinephrine 4 MG in D5% in Water 250 ML IVC SCH (09:14)
[2018-03-30] MEDS: Chlorhexidine Rinse 15 ML MOUTHWASH MM SCH ×2 (09:14→19:39)
[2018-03-30] MEDS: Aspirin 81 MG TAB.CHEW PO SCH (09:24)
[2018-03-30] MEDS: Nicotine 21 MG PATCH.TD24 TD SCH (09:24)
[2018-03-30] MEDS ORDERED: D10% in Water 500 ML IVC PRN ×2 (09:31→12:12)
--- NOTE | 2018-03-30 11:05 | Electrocardiograph Report ---
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
[2018-03-30] MEDS ORDERED: Clinimix E 5%-15% SOLUTION 2,000 ML with MVI, adult with vitamin K 10 ML, Trace Eleme... IVC SCH (17:00)
[2018-03-30] MEDS: *HR* Morphine 2 MG/ML SYRINGE IVP PRN (18:10)
[2018-03-31] MEDS: Ipratropium/Albuterol Neb 3 ML IH SCH ×7 (00:09→23:26)
[2018-03-31] MEDS: Artificial Tears SOLN 15 ML BOTTLE BOTH EYES SCH ×6 (00:59→21:15)
[2018-03-31] MEDS: MethylPREDNISolone 40 MG/ML VIAL IVP SCH ×4 (01:00→17:26)
[2018-03-31] MEDS: Insulin LISPRO 300 UNITS/3 ML VIAL SQ SCH ×4 (01:00→21:15)
[2018-03-31] MEDS: Dexmedetomidine HCl 400 MCG/100 ML MLS IVC SCH (02:00)
[2018-03-31] MEDS: *HR* LORazepam 2 MG/ML VIAL IVP SCH ×6 (02:10→22:02)
[2018-03-31] MEDS: FentaNYL (PF) 1,000 MCG in 0.9 % Sodium Chloride 80 ML IVC SCH (03:46)
[2018-03-31 04:22] LABS: Basophils % 0.2 %; Hematocrit 31.7 % (35.3-44.9); Immature Granulocytes % 1.5 % (0-4); Lymphocytes # 0.3 K/mcL (0.6-4.6); Lymphocytes % 2.6 %; Mean Corpuscular HGB Conc 31.5 g/dL (31.6-35.5); Mean Corpuscular Hemoglobin 28.2 pg (28.0-33.3); Mean Corpuscular Volume 89.5 fL (83.0-100.0); Mean Platelet Volume 10.2 fL (9.4-12.4); Monocytes # 0.8 K/mcL (0.0-1.3); Monocytes % 7.3 %; Neutrophils # 9.7 K/mcL (1.6-8.9); Platelet Count 232 K/mcL (140-400); Red Blood Count 3.54 M/mcL (3.82-4.97); Red Cell Distribution Width 15.1 % (11.5-14.5); Segmented Neutrophils % 88.4 %
[2018-03-31 04:42] LABS: Alanine Aminotransferase 31 Units/L (7-52); Albumin/Globulin Ratio 1.2 (1.1-2.2); Alkaline Phosphatase 37 Units/L (34-104); Aspartate Amino Transferase 20 Units/L (13-39); BUN/Creatinine Ratio 65 (6-26); Bilirubin,Total 0.4 mg/dL (0.3-1.0); Blood Urea Nitrogen 31 mg/dL (8-23); Calcium 8.7 mg/dL (8.6-10.3); Carbon Dioxide 36 mEq/L (23-29); Chloride 103 mEq/L (98-107); Globulin 2.6 g/dL (2.4-3.5); Glucose 192 mg/dL (70-105); Osmolality,Calculated 306 (280-300); Phosphorous 3.3 mg/dL (2.7-4.5); Sodium 142 mEq/L (136-145); Total Protein 5.6 g/dL (6.4-8.9); Triglycerides 171 mg/dL (< 150); eGFR For Non-African Americans > 60 (> 60)
[2018-03-31] MEDS: Levofloxacin 750 MG/150 ML 750 MG/150 ML BAG IVPB SCH (05:19)
[2018-03-31] MEDS: *HR* Heparin 5,000 UNIT/ML VIAL SQ SCH ×3 (05:19→21:14)
[2018-03-31 05:58] LABS: VBG Ionized Calcium 1.19 mmol/L (1.15-1.35)
[2018-03-31 05:59] LABS: Magnesium 2.3 mg/dL (1.6-2.6)
[2018-03-31] MEDS: Budesonide/Formoterol 160/4.5 1 PUFF INH IH SCH ×3 (07:47→19:44)
--- NOTE | 2018-03-31 08:13 | Pulmonology Progress Note ---
Date of Encounter: 03/31/18 Time of Encounter: 08:13 Assessment and Plan (1) Acute and chronic respiratory failure with hypoxia Current Visit: No Status: Resolved This is secondary to pneumonia and COPD exacerbation She was successfully liberated from the ventilator however She remains BiPAP dependent for most of the day Continue BiPAP on an as-needed basis with periods of nasal cannula as tolerated (2) Pneumonia Current Visit: Yes Status: Acute She will be treated for 7 days for severe community acquired pneumonia white count has normalized she remains afebrile Qualifiers: Pneumonia type: due to unspecified organism Laterality: bilateral Lung location: lower lobe of lung Qualified Code(s): J18.1 - Lobar pneumonia, unspecified organism (3) Acute exacerbation of chronic obstructive pulmonary disease (COPD) Current Visit: Yes Status: Acute Continue IV steroids and bronchodilators continue Symbicort she has ESCOPD (4) Cardiomyopathy Current Visit: Yes Status: Acute Patient presented with NSTEMI likely secondary to stress-induced cardiomyopathy cardiology following she is on aspirin and beta andreea for this Qualifiers: Cardiomyopathy type: unspecified Qualified Code(s): I42.9 - Cardiomyopathy , unspecified (5) Cachexia Current Visit: No Status: Chronic Patient with high caloric requirement has not been fully take adequate nutrition via mouth because of BiPAP dependency since liberation from the vent. Given her underlying cachexia TPN has been started on a short-term basis until she can be weaned from BiPAP on a more consistent basis to take by mouth this decision was made because of the high caloric metabolic requirements of acute respiratory failure appreciate dietary recommendations we will continue to follow her electrolytes (6) DVT prophylaxis Current Visit: Yes Status: Acute cont Heparin (7) Goals of care, counseling/discussion Current Visit: Yes Status: Acute I discussed with the patient in the room and asked her if she is comfortable with continuing the current level of care if she is not any pain or if she suffering anyway and she denied that she was not was okay with continuation of therapy as we are doing now. I had a formal discussion with the patient's next of kin her Thomas and frankly explained to him that while we will continue to make incremental progress I am not sure long-term that her body skin to be able to handle this level of therapy and I am dubious of any long- term meaningful recovery essentially in my mind this represents terminal COPD and is very possible that she could become BiPAP dependent during this admission. In my mind for what was expressed needed both the patient and the wanted to continue current course of therapy but I suspect that palliative care consultation would be helpful in the next 24 hours and to continue to make sure that her level of comfort is being respected and long- term planning can be achieved. Subjective Principal diagnosis: Shortness of breath Interval history: Stable from respiratory standpoint overnight. She is been able to be off BiPAP this morning for approximately 4 hours she remains to But oxygenation is stable.. She was started on TPN yesterday per dietary recommendations. When I spoke to her she says that she is reasonably comfortable right now and has no other complaints except that she is short of breath. Objective PUL Vital signs: Last Vital Signs Temp 97.2 F L 03/31/18 05:15 Pulse 99 03/31/18 06:00 Resp 26 03/31/18 06:00 BP 139/92 03/31/18 06:00 Pulse Ox 97 03/31/18 06:00 General appearance: other (She is frail and weak-appearing she is lying in bed with an elevated respiratory rate she has muffled responses to my questions but is able to answer all them appropriately and is otherwise awake and alert) Eyes: nonicteric ENT: oropharynx dry Neck: supple Auscultation: bilateral: wheezes (Bilateral expiratory wheezes in all lung christina) Cardiovascular: regular rate and rhythm Gastrointestinal: normoactive bowel sounds, soft, non-tender Integumentary: normal Extremities: no cyanosis, no edema, no clubbing Musculoskeletal: no deformities non-focal exam, pupils equal and round anxious Results - Laboratory Findings CBC and BMP: 03/31/18 04:03 03/31/18 04:03 ABG ABG pH 7.39 pH Units (7.32-7.45) 03/28/18 01:44 ABG pCO2 52 mmHg (35-45) H 03/28/18 01:44 ABG pO2 81 mmHg (85-104) L 03/28/18 01:44 ABG O2 Saturation 95 % (95-98) 03/28/18 01:44 PT/INR, D-dimer PT 11.9 Seconds (9.4-12.1) 03/28/18 02:54 Abnormal lab findings: Abnormal lab results RBC 3.54 M/mcL (3.82-4.97) L 03/31/18 04:03 Hgb 10.0 g/dL (11.5-15.4) L 03/31/18 04:03 Hct 31.7 % (35.3-44.9) L 03/31/18 04:03 MCHC 31.5 g/dL (31.6-35.5) L 03/31/18 04:03 RDW 15.1 % (11.5-14.5) H 03/31/18 04:03 Neutrophils # 9.7 K/mcL (1.6-8.9) H 03/31/18 04:03 Lymphocytes # 0.3 K/mcL (0.6-4.6) L 03/31/18 04:03 Toxic Granulation Present (Not Present) A 03/25/18 03:26 Toxic Vacuolation Present (Not Present) A 03/25/18 03:26 Poikilocytosis 1+ (Not Present) A 03/25/18 14:20 Anisocytosis 1+ (Not Present) A 03/25/18 14:20 Macrocytosis Present (Not Present) A 03/25/18 14:20 Stomatocytes 1+ (Not Present) A 03/25/18 14:20 ABG pCO2 52 mmHg (35-45) H 03/28/18 01:44 ABG pO2 81 mmHg (85-104) L 03/28/18 01:44 ABG HCO3 31 mEq/L (21-27) H 03/28/18 01:44 ABG Total CO2 33 mEq/L (20-26) H 03/28/18 01:44 ABG Base Excess 5 mEq/L (-2 to 3) H 03/28/18 01:44 Carbon Dioxide 36 mEq/L (23-29) H 03/31/18 04:03 BUN 31 mg/dL (8-23) H 03/31/18 04:03 Creatinine 0.48 mg/dL (0.60-1.20) L 03/31/18 04:03 BUN/Creatinine Ratio 65 (6-26) H 03/31/18 04:03 Glucose 192 mg/dL (70-105) H 03/31/18 04:03 POC Glucose 183 mg/dL (70-99) H 03/31/18 05:08 Hemoglobin A1c 5.7 % (-5.6) H 03/27/18 02:50 Calculated Osmolality 306 (280-300) H 03/31/18 04:03 Troponin I 1.35 ng/mL (< 0.04) H* 03/27/18 02:50 Serum Total Protein 5.6 g/dL (6.4-8.9) L 03/31/18 04:03 Albumin 3.0 g/dL (3.5-5.7) L 03/31/18 04:03 Triglycerides 171 mg/dL (< 150) H 03/31/18 04:03 - Clinical Findings Intake & Output: Intake & Output 03/30/18 03/31/18 03/31/18 23:59 07:59 15:59 Intake Total 500 / 500 Output Total 325 / 325 325 / 325 Balance -325 / -325 175 / 175 Weight 44.9 kg Consult Discharge Plan - Plan Referrals: Letty Joyce, DAILY SALES AUDIT CLERK [Primary Care Provider] -
[2018-03-31] MEDS: Norepinephrine 4 MG in D5% in Water 250 ML IVC SCH (08:44)
[2018-03-31] MEDS: Chlorhexidine Rinse 15 ML MOUTHWASH MM SCH ×2 (08:45→21:14)
[2018-03-31] MEDS: Aspirin 81 MG TAB.CHEW PO SCH (09:31)
[2018-03-31] MEDS: Nicotine 21 MG PATCH.TD24 TD SCH (09:32)
[2018-03-31] MEDS ORDERED: Furosemide 20 MG/2 ML VIAL IVP ONE (09:37)
[2018-03-31] MEDS ORDERED: Clinimix E 5%-15% SOLUTION 2,000 ML with MVI, adult with vitamin K 10 ML, Trace Eleme... IVC SCH (17:00)
[2018-03-31] MEDS ORDERED: Insulin LISPRO 300 UNITS/3 ML VIAL SQ SCH (20:00)
[2018-03-31] MEDS: *HR* Morphine 2 MG/ML SYRINGE IVP PRN (22:41)
[2018-03-31] MEDS ORDERED: *HR* LORazepam 2 MG/ML VIAL IVP ONE (23:13)
[2018-04-01] MEDS ORDERED: *HR* Metoprolol 5 MG/5 ML VIAL IVP ONE ×2 (00:06→19:37)
[2018-04-01] MEDS: Insulin LISPRO 300 UNITS/3 ML VIAL SQ SCH ×7 (00:26→23:45)
[2018-04-01] MEDS: MethylPREDNISolone 40 MG/ML VIAL IVP SCH ×3 (00:26→17:23)
[2018-04-01] MEDS: Artificial Tears SOLN 15 ML BOTTLE BOTH EYES SCH ×4 (00:27→12:19)
[2018-04-01] MEDS: FentaNYL (PF) 1,000 MCG in 0.9 % Sodium Chloride 80 ML IVC SCH (00:27)
[2018-04-01] MEDS: *HR* LORazepam 2 MG/ML VIAL IVP SCH ×6 (02:19→21:43)
[2018-04-01] MEDS: Ipratropium/Albuterol Neb 3 ML IH SCH ×6 (03:40→23:43)
[2018-04-01 03:57] LABS: Basophils # 0.1 K/mcL (0.0-0.2); Basophils % 0.4 %; Eosinophils % 0.1 %; Hematocrit 36.4 % (35.3-44.9); Hemoglobin 11.4 g/dL (11.5-15.4); Lymphocytes # 0.5 K/mcL (0.6-4.6); Lymphocytes % 2.6 %; Mean Corpuscular HGB Conc 31.3 g/dL (31.6-35.5); Mean Corpuscular Hemoglobin 28.4 pg (28.0-33.3); Mean Corpuscular Volume 90.8 fL (83.0-100.0); Mean Platelet Volume 9.9 fL (9.4-12.4); Nucleated Red Blood Cells 0.1 /100 WBC (0); Platelet Count 258 K/mcL (140-400); Red Blood Count 4.01 M/mcL (3.82-4.97); Red Cell Distribution Width 15.3 % (11.5-14.5); Segmented Neutrophils % 81.9 %
[2018-04-01 04:01] LABS: VBG Ionized Calcium 1.14 mmol/L (1.15-1.35)
[2018-04-01 04:14] LABS: BUN/Creatinine Ratio 54 (6-26); Blood Urea Nitrogen 22 mg/dL (8-23); Carbon Dioxide 39 mEq/L (23-29); Chloride 99 mEq/L (98-107); Glucose 146 mg/dL (70-105); Magnesium 2.3 mg/dL (1.6-2.6); Osmolality,Calculated 296 (280-300); Phosphorous 2.1 mg/dL (2.7-4.5); Potassium 3.5 mEq/L (3.5-5.1); Sodium 140 mEq/L (136-145); eGFR For Non-African Americans > 60 (> 60)
[2018-04-01] MEDS: *HR* Heparin 5,000 UNIT/ML VIAL SQ SCH ×3 (06:27→19:57)
[2018-04-01] MEDS: Budesonide/Formoterol 160/4.5 1 PUFF INH IH SCH ×2 (07:37→19:27)
[2018-04-01] MEDS: Potassium Phosphate 44 MEQ in 0.9 % Sodium Chloride 250 ML IVPB PRN (08:02)
--- NOTE | 2018-04-01 09:03 | Pulmonology Progress Note ---
<Jama Day - Last Filed: 04/01/18 11:56> Date of Encounter: 04/01/18 Time of Encounter: 07:35 Assessment and Plan (1) Acute and chronic respiratory failure with hypercapnia Current Visit: Yes Status: Acute Acute on chronic respiratory failure with hypoxia and hypercapnia. Patient initially required intubation and ventilation for management. Likely secondary to sepsis in the setting of pneumonia and COPD exacerbation. Patient was extubated last week, remains BiPAP dependent for most of the day. We will continue to attempt transition to high flow nasal cannula. (2) Sepsis Current Visit: Yes Status: Acute Patient did meet septic shock criteria for admission with suspected source of infection as pneumonia with an associated COPD exacerbation. Patient's blood pressure remained low despite initial fluid resuscitation, patient did require vasopressor blood pressure support. At present patient is normotensive, episodes of tachycardia related to agitation , afebrile. Recent increase in WBC to 19.5. Patient did finish seven-day course of Levaquin with last dose yesterday. No evidence of ongoing infection, chest x-ray this a.m. reveals improved right middle lobe opacities. Qualifiers: Sepsis type: sepsis due to unspecified organism Qualified Code(s): A41.9 - Sepsis, unspecified organism (3) Pneumonia Current Visit: Yes Status: Acute Patient has now completed 7 day course of Levaquin antimicrobial therapy. Improvement noted on recent chest x-ray. Patient continues to require BiPAP ventilatory support. Qualifiers: Pneumonia type: due to unspecified organism Laterality: bilateral Lung location: lower lobe of lung Qualified Code(s): J18.1 - Lobar pneumonia, unspecified organism (4) Cardiomyopathy Current Visit: Yes Status: Acute Patient did present with elevated troponins and an NSTEMI secondary to stress- induced cardiomyopathy. Cardiology was consultation, recommended medical management with aspirin and beta andreea at this time. Qualifiers: Cardiomyopathy type: unspecified Qualified Code(s): I42.9 - Cardiomyopathy , unspecified (5) Hyperglycemia Current Visit: Yes Status: Acute Patient remains nothing by mouth since extubation due to BiPAP dependence. Patient was recently started on TPN nutrition. Continue insulin low-dose sliding scale. (6) Hypertension Current Visit: Yes Status: Acute Patient has history of hypertension, on 25 mg metoprolol extended release at home. Episodes of hypertension continue, seem to be related to anxiety. Responding to Ativan and morphine. Continue metoprolol 25 mg 3 times a day. Qualifiers: Hypertension type: essential hypertension Qualified Code(s): I10 - Essential (primary) hypertension (7) Cachexia Current Visit: No Status: Chronic Patient remains BiPAP dependent, unable to take adequate oral nutrition. TPN was started recently until patient can be weaned from BiPAP. Patient does have high metabolic requirements due to COPD and respiratory failure and is at risk for respiratory fatigue. Dietary following and managing TPN, will continue to follow electrolytes and replete as needed. (8) Goals of care, counseling/discussion Current Visit: Yes Status: Acute Patient with significant history of COPD. She remains BiPAP dependent since extubation in the setting of terminal COPD. Possible that patient could remain BiPAP dependent throughout this admission. 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 At present continuing high level of care, however likelihood of meaningful long-term recovery is guarded. (9) DVT prophylaxis Current Visit: Yes Status: Acute Continue DVT prophylaxis with heparin SQ 3 times a day. Subjective Principal diagnosis: Shortness of breath Interval history: No acute events reported overnight. Patient remains BiPAP dependent. Agitation requiring anxiolytic. Objective PUL Vital signs: Last Vital Signs Temp 97.7 F 04/01/18 08:00 Pulse 96 04/01/18 07:30 Resp 26 04/01/18 07:37 BP 117/60 04/01/18 07:37 Pulse Ox 96 04/01/18 07:37 General appearance: no acute distress Eyes: nonicteric ENT: oropharynx moist Neck: supple, no lymphadenopathy Effort: mildly labored (BiPAP in place) Auscultation: bilateral: diminished breath sounds, wheezes (Bilateral end expiratory wheezing throughout all lung christina) Cardiovascular: regular rate and rhythm Gastrointestinal: normoactive bowel sounds, soft, non-distended Integumentary: normal Extremities: no cyanosis, no edema, no clubbing Musculoskeletal: no deformities, other (Cachectic body habitus) normal mental status, non-focal exam anxious Results - Laboratory Findings CBC and BMP: 04/01/18 03:44 04/01/18 03:44 ABG ABG pH 7.39 pH Units (7.32-7.45) 03/28/18 01:44 ABG pCO2 52 mmHg (35-45) H 03/28/18 01:44 ABG pO2 81 mmHg (85-104) L 03/28/18 01:44 ABG O2 Saturation 95 % (95-98) 03/28/18 01:44 PT/INR, D-dimer PT 11.9 Seconds (9.4-12.1) 03/28/18 02:54 Abnormal lab findings: Abnormal lab results WBC 19.5 K/mcL (4.3-11.1) H D 04/01/18 03:44 Hgb 11.4 g/dL (11.5-15.4) L 04/01/18 03:44 MCHC 31.3 g/dL (31.6-35.5) L 04/01/18 03:44 RDW 15.3 % (11.5-14.5) H 04/01/18 03:44 Immature Gran % 5.0 % (0-4) H 04/01/18 03:44 Neutrophils # 16.0 K/mcL (1.6-8.9) H 04/01/18 03:44 Lymphocytes # 0.5 K/mcL (0.6-4.6) L 04/01/18 03:44 Monocytes # 2.0 K/mcL (0.0-1.3) H 04/01/18 03:44 Nucleated RBCs/100 WBC 0.1 /100 WBC (0) H 04/01/18 03:44 Toxic Granulation Present (Not Present) A 03/25/18 03:26 Toxic Vacuolation Present (Not Present) A 03/25/18 03:26 Poikilocytosis 1+ (Not Present) A 03/25/18 14:20 Anisocytosis 1+ (Not Present) A 03/25/18 14:20 Macrocytosis Present (Not Present) A 03/25/18 14:20 Stomatocytes 1+ (Not Present) A 03/25/18 14:20 ABG pCO2 52 mmHg (35-45) H 03/28/18 01:44 ABG pO2 81 mmHg (85-104) L 03/28/18 01:44 ABG HCO3 31 mEq/L (21-27) H 03/28/18 01:44 ABG Total CO2 33 mEq/L (20-26) H 03/28/18 01:44 ABG Base Excess 5 mEq/L (-2 to 3) H 03/28/18 01:44 Carbon Dioxide 39 mEq/L (23-29) H 04/01/18 03:44 Creatinine 0.41 mg/dL (0.60-1.20) L 04/01/18 03:44 BUN/Creatinine Ratio 54 (6-26) H 04/01/18 03:44 Glucose 146 mg/dL (70-105) H 04/01/18 03:44 POC Glucose 135 mg/dL (70-99) H 04/01/18 07:36 Hemoglobin A1c 5.7 % (-5.6) H 03/27/18 02:50 Venous Ioniz Calcium 1.14 mmol/L (1.15-1.35) L 04/01/18 03:57 Phosphorus 2.1 mg/dL (2.7-4.5) L 04/01/18 03:44 Troponin I 1.35 ng/mL (< 0.04) H* 03/27/18 02:50 Serum Total Protein 5.6 g/dL (6.4-8.9) L 03/31/18 04:03 Albumin 3.0 g/dL (3.5-5.7) L 03/31/18 04:03 Triglycerides 171 mg/dL (< 150) H 03/31/18 04:03 - Clinical Findings Intake & Output: Intake & Output 03/31/18 04/01/18 04/01/18 23:59 07:59 15:59 Intake Total 250 / 250 Output Total 850 / 850 300 / 300 200 / 200 Balance -850 / -850 -50 / -50 -200 / -200 Weight 45.3 kg Consult Discharge Plan - Plan Referrals: Letty Joyce, [employer]OL FILER [Primary Care Provider] - <Ly Cedillo - Last Filed: 04/01/18 16:23> Date of Encounter: 04/01/18 Objective PUL Vital signs: Last Vital Signs Temp 97.7 F 04/01/18 08:00 Pulse 109 04/01/18 10:00 Resp 34 04/01/18 10:00 BP 162/108 04/01/18 10:00 Pulse Ox 94 04/01/18 10:00 Results - Laboratory Findings CBC and BMP: 04/01/18 03:44 04/01/18 03:44 ABG ABG pH 7.39 pH Units (7.32-7.45) 03/28/18 01:44 ABG pCO2 52 mmHg (35-45) H 03/28/18 01:44 ABG pO2 81 mmHg (85-104) L 03/28/18 01:44 ABG O2 Saturation 95 % (95-98) 03/28/18 01:44 PT/INR, D-dimer PT 11.9 Seconds (9.4-12.1) 03/28/18 02:54 Abnormal lab findings: Abnormal lab results WBC 19.5 K/mcL (4.3-11.1) H D 04/01/18 03:44 Hgb 11.4 g/dL (11.5-15.4) L 04/01/18 03:44 MCHC 31.3 g/dL (31.6-35.5) L 04/01/18 03:44 RDW 15.3 % (11.5-14.5) H 04/01/18 03:44 Immature Gran % 5.0 % (0-4) H 04/01/18 03:44 Neutrophils # 16.0 K/mcL (1.6-8.9) H 04/01/18 03:44 Lymphocytes # 0.5 K/mcL (0.6-4.6) L 04/01/18 03:44 Monocytes # 2.0 K/mcL (0.0-1.3) H 04/01/18 03:44 Nucleated RBCs/100 WBC 0.1 /100 WBC (0) H 04/01/18 03:44 Toxic Granulation Present (Not Present) A 03/25/18 03:26 Toxic Vacuolation Present (Not Present) A 03/25/18 03:26 Poikilocytosis 1+ (Not Present) A 03/25/18 14:20 Anisocytosis 1+ (Not Present) A 03/25/18 14:20 Macrocytosis Present (Not Present) A 03/25/18 14:20 Stomatocytes 1+ (Not Present) A 03/25/18 14:20 ABG pCO2 52 mmHg (35-45) H 03/28/18 01:44 ABG pO2 81 mmHg (85-104) L 03/28/18 01:44 ABG HCO3 31 mEq/L (21-27) H 03/28/18 01:44 ABG Total CO2 33 mEq/L (20-26) H 03/28/18 01:44 ABG Base Excess 5 mEq/L (-2 to 3) H 03/28/18 01:44 Carbon Dioxide 39 mEq/L (23-29) H 04/01/18 03:44 Creatinine 0.41 mg/dL (0.60-1.20) L 04/01/18 03:44 BUN/Creatinine Ratio 54 (6-26) H 04/01/18 03:44 Glucose 146 mg/dL (70-105) H 04/01/18 03:44 POC Glucose 135 mg/dL (70-99) H 04/01/18 07:36 Hemoglobin A1c 5.7 % (-5.6) H 03/27/18 02:50 Venous Ioniz Calcium 1.14 mmol/L (1.15-1.35) L 04/01/18 03:57 Phosphorus 2.1 mg/dL (2.7-4.5) L 04/01/18 03:44 Troponin I 1.35 ng/mL (< 0.04) H* 03/27/18 02:50 Serum Total Protein 5.6 g/dL (6.4-8.9) L 03/31/18 04:03 Albumin 3.0 g/dL (3.5-5.7) L 03/31/18 04:03 Triglycerides 171 mg/dL (< 150) H 03/31/18 04:03 - Clinical Findings Intake & Output: Intake & Output 03/31/18 04/01/18 04/01/18 23:59 07:59 15:59 Intake Total 250 / 250 Output Total 850 / 850 300 / 300 200 / 200 Balance -850 / -850 -50 / -50 -200 / -200 Weight 45.3 kg - Attending Attestation I examined this patient and my medical decision-making was reviewed with the Resident Physician. I agree with the documented findings, disposition and treatment plan as described except to the extent set forth below. Patient seen and examined. Labs, radiology, chart personally reviewed. 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 Palliative care consult. I have discussed with the family at the bedside prognosis is poor. Nutrition and feeding is challenging and there is risk with TPN use. Cardiovascular: stable GI: Nutrition per dietary and GI prophylaxis per routine. Continue TPN for now because risk of aspiration and explained this to the family. Heme: DVT prophylaxis per routine ID: Completed course of antibiotic. Renal; urine out put and renal funtion reviewed Endorcine: blood glucose is monitored. Taper steroid Lines: all lines checked and no evidence of infections Skin: skin care to prevent pressure ulcers per nursing routine care
[2018-04-01] MEDS: *HR* Morphine 2 MG/ML SYRINGE IVP PRN ×2 (09:08→14:39)
[2018-04-01] MEDS: Aspirin 81 MG TAB.CHEW PO SCH (09:16)
[2018-04-01] MEDS: Chlorhexidine Rinse 15 ML MOUTHWASH MM SCH (09:17)
[2018-04-01] MEDS ORDERED: MethylPREDNISolone 40 MG/ML VIAL IVP SCH (12:00)
[2018-04-01] MEDS: Nicotine 21 MG PATCH.TD24 TD SCH (12:17)
--- NOTE | 2018-04-01 16:03 | Palliative - Consult Note ---
Date of Encounter: 04/01/18 Time of Encounter: 15:30 - Assessment and Plan (1) Counseling regarding advanced care planning and goals of care Current Visit: Yes Status: Acute Assessment and plan: Conducted bedside meetings with patient, Brian and Student Records Coordinator. Patient on Bipap and kept patient questions to a minimum. Educated patient on Bipap and reinforced that the device was not a adjunct faculty for medical terminology airway management solution. Discussed skin breakdown to face and nasal area. Explained that patient is being monitored closely for respiratory compromise. Educated that patient may become weak and require re-intubation. Patient verbalized that she wanted to be re-intubated if needed. is aware if patients desires and patient wants to remain FULL CODE. I explained Code Status and interventions for each one. Patient verbalizes that she wants to remain Full Code. I left patient and family to discuss further and that our PC team would follow-up tomorrow. (2) Acute and chronic respiratory failure Current Visit: No Status: Resolved Assessment and plan: Patient on Bipap Qualifiers: Respiratory failure complication: hypoxia and hypercapnia Qualified Code(s) : J96.21 - Acute and chronic respiratory failure with hypoxia; J96.22 - Acute and chronic respiratory failure with hypercapnia (3) Dyspnea Current Visit: No Status: Acute Assessment and plan: Duonebs, Bipap, Position for comfort. Patient being assessed closely. Qualifiers: Dyspnea type: dyspnea on exertion Qualified Code(s): R06.09 - Other forms of dyspnea (4) Cachexia Current Visit: No Status: Chronic Assessment and plan: Dietary consult TPN infusing Palliative-CN HPI - Data of Consult Patient: new to practice Consult date: 04/01/18 Requesting Physician: Jama Day Primary Care Provider: Letty Joyce CNP - Consult Narrative Palliative Care/Comfort Measures: Palliative care Reason for consult: Goals of Care History of present illness: Ms. Burnham is a 72 year old female with history of COPD who presented from [place] emergency department with pneumonia and respiratory failure. Patient is on Bipap and tolerating well at present. 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 History is obtained from the and the medical record. Per the patient had some cold symptoms at home prior to admit. The patient is oxygen dependent with her normal at 3.5 L. Per ED report EMS had stated that upon their arrival patient had poor respiratory effort and hypoxia. Her oxygen levels improved with nebulized breathing treatments and nonrebreather however upon arrival to the emergency department she was lethargic in any acute respiratory distress. At that point she was intubated. The patient was extubated but has been Bipap dependent and unable to be weaned. This palliative care consult is for goals of care discussion. CC: Edwin Salmeron MD - Time Spent with Patient Time: Total time spent is greater than 50% in coordination of care (as documented) at patient's floor/unit and/or counseling patient: Past Med Surg Social Fam HX - Past Medical History Source: patient, old records reviewed, obtained from family, nursing notes reviewed Medical history: arthritis, COPD, GERD, hypertension, osteoporosis, other Additional medical history: Dysphonia-resolved Psychiatric history: anxiety, depression - Past Surgical History Surgical History: cholecystectomy Additional surgical history: left shoulder scope. cystectomy. right foot. right knee. cataracts. left wrist fx - Social History Smoking Status: Former smoker Smokeless Tobacco Status: No Alcohol use: none Drug use: none Occupational status: retired Current living situation: Home, With Family Activity Level: Mostly sedentary Recent Out of Country Travel Within the Last 8 Weeks: No Exposure or Possible Exposure to Illness During Travel: No - Family History Mother Living Status: Hx Family Cardiac Disorders: No Hx Family Respiratory Disorders: No Hx Family Cancer: No Hx Family GI Disorders: No Hx Family Endocrine Disorder: No Hx Family Neuromuscular Disorders: No Hx Family Neurologic Disorders: Yes Hx Family HEENT Disorders: No Hx Family Autoimmune Disorders: No Medications and Allergies Ipratropium/Albuterol Neb [Duoneb] 3 ml IH Q4H PRN 02/18/15 [History] Metoprolol XL (24 HR) Succ [Toprol Xl] 25 mg PO DAILY 02/18/15 [History] Montelukast [Singulair] 10 mg PO HS 02/18/15 [History] Tiotropium [Spiriva] 18 mcg IH DAILY 02/18/15 [History] Albuterol Sulfate [Albuterol Inhaler] 1 - 2 puff IH Q4HR PRN 07/06/15 [History] Oxygen 3.5 l NS AD 07/06/15 [History] ALPRAZolam [Xanax 0.25 MG Tablet] 0.25 mg PO TID PRN #21 tablet 10/05/15 [Rx] Azithromycin [Azithromycin] 250 mg PO MOWEFR 03/25/18 [History] Cholecalciferol (Vitamin D3) [Dialyvite Vitamin D] 5,000 unit PO DAILY 03/25/18 [History] Cyanocobalamin (B-12) [Vitamin B12] 1,000 mcg PO DAILY 03/25/18 [History] Ferrous Sulfate [Ferrous Sulfate] 325 mg PO DAILY 03/25/18 [History] Fluticasone/Salmeterol [Advair Hfa 230-21 Mcg Inhaler] 2 puff IH BID 03/25/18 [ History] Omeprazole [PriLOSEC] 20 mg PO DAILY 03/25/18 [History] predniSONE [Prednisone] 2.5 mg PO DAILY 03/25/18 [History] 3 Allergy/AdvReac Type Severity Reaction Status Date / Time Penicillins Allergy Anaphylaxis Verified 03/24/18 23:35 acetaminophen [From Vicodin] AdvReac Hallucinati Verified 03/25/18 02:05 ng gabapentin [From Neurontin] AdvReac Hallucinati Verified 03/25/18 02:05 ng hydrocodone [From Vicodin] AdvReac Hallucinati Verified 03/25/18 02:05 ng hydroxyzine [From Atarax] AdvReac Diarrhea Verified 03/24/18 23:35 Oxycodone AdvReac Hallucinati Verified 03/24/18 23:35 ng pregabalin [From Lyrica] AdvReac Hallucinati Verified 03/25/18 02:05 ng ROS unobtainable: other (Patient is Bipap dependent) - Constitutional Constitutional ROS PAL: fatigue - EENT Eyes: requires corrective lenses - Cardiovascular Cardiovascular ROS: dyspnea on exertion - Respiratory Respiratory: cough, dyspnea on exertion - Neurological Neurological ROS: weakness Palliative Care-Exam - Constitutional Vitals: Temp Pulse Resp BP Pulse Ox 98.2 F 108 27 109/71 98 04/01/18 12:13 04/01/18 15:00 04/01/18 15:00 04/01/18 15:00 04/01/18 15:00 General appearance: Present: cooperative, no acute distress - Head Head Exam: Present: atraumatic, normal inspection, normocephalic - Eye Eye exam: Present: PERRL - ENT ENT exam: Present: mucous membranes moist - Neck Neck exam: Present: normal inspection - Respiratory Respiratory exam: Present: decreased breath sounds - Expanded Respiratory Exam Location: decreased breath sounds: Left, Right, Upper, Lower - Cardiovascular Cardiovascular exam: Present: RRR, +S1, +S2 - Expanded Cardiovascular Exam Peripheral pulses: 1+: Femoral (L) PM, Femoral (R) PM, 2+: Carotid (L) PM, Carotid (R) PM, Radial (L), Radial (R), Posterior Tibialis (L), Posterior Tibialis (R), Dorsalis Pedis (L) PM, Dorsalis Pedis (R) PM - GI/Abdominal Exam GI/Abdominal exam: Present: normal bowel sounds, soft - Rectal Rectal exam: Present: deferred - Catheter Type: Urethral (Abreu) - Expanded Upper Extremities Exam Shoulder exam: Present: full ROM Upper Arm exam: Present: full ROM Forearm wrist exam: Present: full ROM - Neurological Exam Neurological exam: Present: alert, oriented X3 - Expanded Neurological Exam Patient oriented to: Present: person, place, time Cranial nerves: gag reflex: Normal Coma Scale Eye Opening: Spontaneous Coma Scale Motor Response: Obeys Commands Coma Scale Verbal Response: Oriented Coma Scale Total: 15 Internal Medicine - CN: Reslt - Labs CBC & Chem 7: 04/01/18 03:44 04/01/18 03:44 Labs: Short CBC 04/01/18 Range/Units 03:44 WBC 19.5 H D (4.3-11.1) K/mcL Hgb 11.4 L (11.5-15.4) g/dL Hct 36.4 (35.3-44.9) % Plt Count 258 (140-400) K/mcL Neutrophils # 16.0 H (1.6-8.9) K/mcL BMP 04/01/18 03:44 Sodium 140 Potassium 3.5 Chloride 99 Carbon Dioxide 39 H BUN 22 Creatinine 0.41 L Glucose 146 H Calcium 9.0 - ABG Interpretation ABG results: ABG ABG pH 7.39 pH Units (7.32-7.45) 03/28/18 01:44 ABG pCO2 52 mmHg (35-45) H 03/28/18 01:44 ABG pO2 81 mmHg (85-104) L 03/28/18 01:44 ABG O2 Saturation 95 % (95-98) 03/28/18 01:44 PT/INR, D-dimer PT 11.9 Seconds (9.4-12.1) 03/28/18 02:54 - Impressions Impressions Chest X-Ray 04/01/18 05:28 IMPRESSION: Improving bibasilar atelectasis and/or pneumonia. D/ / Luis Kay MD / Luis Kay MD Interpreting Provider: Luis Kay MD Consult Discharge Plan - Plan Referrals: Letty Joyce, [employer] [Primary Care Provider] - Palliative Quality Palliative Quality: Screen for Code Status: Yes, Screen for Goals of Care: Yes, Screen for Pain: Yes, If Pain Regimen Started, Initiate Bowel Regimen: Yes, Screen for Nausea/Vomitting: Yes Code Status: 03/25/18 02:40 Resuscitation Status: Active [RES] Routine Comment: Resuscitation Status: Full Code
[2018-04-01] MEDS ORDERED: Clinimix E 5%-15% SOLUTION 2,000 ML with MVI, adult with vitamin K 10 ML IVC SCH (17:00)
[2018-04-02] MEDS: *HR* LORazepam 2 MG/ML VIAL IVP SCH (02:40)
[2018-04-02 03:42] LABS: Basophils # 0.1 K/mcL (0.0-0.2); Basophils % 0.4 %; Eosinophils # 0.1 K/mcL (0.0-0.6); Eosinophils % 0.6 %; Hemoglobin 11.4 g/dL (11.5-15.4); Immature Granulocytes % 1.9 % (0-4); Lymphocytes # 1.2 K/mcL (0.6-4.6); Lymphocytes % 6.9 %; Mean Corpuscular Volume 93.4 fL (83.0-100.0); Mean Platelet Volume 10.3 fL (9.4-12.4); Monocytes % 11.2 %; Platelet Count 233 K/mcL (140-400); Red Blood Count 4.07 M/mcL (3.82-4.97); Red Cell Distribution Width 15.6 % (11.5-14.5)
[2018-04-02] MEDS: Ipratropium/Albuterol Neb 3 ML IH SCH ×5 (03:46→19:50)
[2018-04-02 03:49] LABS: VBG Ionized Calcium 1.12 mmol/L (1.15-1.35)
[2018-04-02 04:03] LABS: BUN/Creatinine Ratio 79 (6-26); Blood Urea Nitrogen 26 mg/dL (8-23); Calcium 8.6 mg/dL (8.6-10.3); Carbon Dioxide 36 mEq/L (23-29); Chloride 102 mEq/L (98-107); Glucose 137 mg/dL (70-105); Magnesium 2.4 mg/dL (1.6-2.6); Osmolality,Calculated 301 (280-300); Phosphorous 2.5 mg/dL (2.7-4.5); Potassium 3.6 mEq/L (3.5-5.1); Sodium 142 mEq/L (136-145); eGFR For Non-African Americans > 60 (> 60)
[2018-04-02] MEDS: Insulin LISPRO 300 UNITS/3 ML VIAL SQ SCH ×4 (04:21→16:50)
[2018-04-02] MEDS: MethylPREDNISolone 40 MG/ML VIAL IVP SCH ×2 (05:45→20:13)
[2018-04-02] MEDS: *HR* Heparin 5,000 UNIT/ML VIAL SQ SCH ×2 (05:45→15:00)
[2018-04-02] MEDS: Potassium Phosphate 44 MEQ in 0.9 % Sodium Chloride 250 ML IVPB PRN (05:46)
[2018-04-02] MEDS: Budesonide/Formoterol 160/4.5 1 PUFF INH IH SCH ×2 (07:11→19:50)
--- NOTE | 2018-04-02 09:15 | Pulmonology Progress Note ---
<Alexys Correia - Last Filed: 04/02/18 14:28> Date of Encounter: 04/02/18 Time of Encounter: 14:28 Assessment and Plan (1) Acute and chronic respiratory failure with hypercapnia Current Visit: Yes Status: Acute Acute on chronic respiratory failure with hypoxia and hypercapnia. Patient initially required intubation with mechanical ventilation at outside facility on 03/25/2018 and was extubated at [facility] ICU on 03/27/2018. Patient has remained BiPAP dependent with alternation to high flow nasal cannula. (2) Sepsis Current Visit: Yes Status: Acute Patient met septic shock criteria during admission with pneumonia suspected source of infection with associated COPD exacerbation. Patient blood pressure remained hypotensive despite fluid resuscitation, required vasopressor support. Patient completed 7 day Levaquin course with last dose being given on March 31 2018. Patient is currently afebrile, mildly tachycardic and tachypneic at 112 and 29, respectively. White blood cell count is currently 17.7 Last chest x-ray on 04/01/2018 shows improving bibasilar atelectasis and/or pneumonia Qualifiers: Sepsis type: sepsis due to unspecified organism Qualified Code(s): A41.9 - Sepsis, unspecified organism (3) Pneumonia Current Visit: Yes Status: Acute Improvement noted on recent x-ray on 04/01/2018. Patient continues to require BiPAP ventilatory support. Patient completed 7 day course of Levaquin on 03/31/2018. Qualifiers: Pneumonia type: due to unspecified organism Laterality: bilateral Lung location: lower lobe of lung Qualified Code(s): J18.1 - Lobar pneumonia, unspecified organism (4) DVT prophylaxis Current Visit: Yes Status: Acute 5000 units subcutaneous heparin 3 times a day. (7) Hyperglycemia Current Visit: Yes Status: Acute Patient remained nothing by mouth since extubation due to BiPAP dependence. Patient started on TPN nutrition. Continue insulin low-dose sliding scale. (8) Hypertension Current Visit: Yes Status: Acute Patient history of hypertension on 25 mg metoprolol ER at home. Episodes of hypertension continue, seem to be related to anxiety-responding to Ativan and morphine for agitation and management of air hunger Continue metoprolol 25 mg 3 times a day. Qualifiers: Hypertension type: essential hypertension Qualified Code(s): I10 - Essential (primary) hypertension (9) Cachexia Current Visit: No Status: Chronic Patient remains BiPAP dependent-unable to take adequate oral nutrition. TPN was started recently until patient can be weaned from BiPAP. Patient does have high metabolic requirements due to COPD and respiratory failure and is at risk for respiratory fatigue. Dietary following and managing TPN, will continue to follow electrolytes and replete as needed. (10) Goals of care, counseling/discussion Current Visit: Yes Status: Acute Patient has significant history of COPD. She remains BiPAP dependent since extubation in the setting of terminal COPD. Discussion held with patient and patient's family along with palliative care medicine consultation-patient states that she would like to return home. Patient's family agrees with outpatient hospice through [facility]- palliative care managing. Subjective Principal diagnosis: Shortness of breath Interval history: Patient is a 72-year-old female with a history of COPD presenting from [place] emergency department with pneumonia and respiratory failure. Patient was initially intubated at [facility] ED on 03/25/2018 with extubation at [facility] ICU on 03/27/2018. Patient was weaned from the ventilator successfully and placed on BiPAP with alternation to high flow nasal oxygen. No acute events overnight. Patient is asleep and minimally responsive during examination, with intermittent awake episodes noted throughout the morning- patient continues to be confused at baseline. Patient work of breathing appears to be moderately labored. Patient goals of care discussed with family and palliative care medicine, patient states that she wants to go home. Patient family were informed of hospital course and current status as well as expected disease outcome. Patient's family given time to ask questions and further hospice information was related by palliative care team. Objective PUL Vital signs: Last Vital Signs Temp 98.0 F 04/02/18 08:00 Pulse 110 04/02/18 08:30 Resp 28 04/02/18 08:30 BP 134/75 04/02/18 08:30 Pulse Ox 95 04/02/18 08:30 General appearance: asleep, appears uncomfortable ENT: oropharynx moist Effort: mildly labored Auscultation: bilateral: clear Cardiovascular: regular rate and rhythm Gastrointestinal: hypoactive bowel sounds, soft, non-tender, non-distended Extremities: no edema Results - Laboratory Findings CBC and BMP: 04/02/18 03:30 04/02/18 03:30 ABG ABG pH 7.39 pH Units (7.32-7.45) 03/28/18 01:44 ABG pCO2 52 mmHg (35-45) H 03/28/18 01:44 ABG pO2 81 mmHg (85-104) L 03/28/18 01:44 ABG O2 Saturation 95 % (95-98) 03/28/18 01:44 PT/INR, D-dimer PT 11.9 Seconds (9.4-12.1) 03/28/18 02:54 Abnormal lab findings: Abnormal lab results WBC 17.7 K/mcL (4.3-11.1) H 04/02/18 03:30 Hgb 11.4 g/dL (11.5-15.4) L 04/02/18 03:30 MCHC 30.0 g/dL (31.6-35.5) L 04/02/18 03:30 RDW 15.6 % (11.5-14.5) H 04/02/18 03:30 Neutrophils # 14.0 K/mcL (1.6-8.9) H 04/02/18 03:30 Monocytes # 2.0 K/mcL (0.0-1.3) H 04/02/18 03:30 Nucleated RBCs/100 WBC 0.1 /100 WBC (0) H 04/01/18 03:44 Toxic Granulation Present (Not Present) A 03/25/18 03:26 Toxic Vacuolation Present (Not Present) A 03/25/18 03:26 Poikilocytosis 1+ (Not Present) A 03/25/18 14:20 Anisocytosis 1+ (Not Present) A 03/25/18 14:20 Macrocytosis Present (Not Present) A 03/25/18 14:20 Stomatocytes 1+ (Not Present) A 03/25/18 14:20 ABG pCO2 52 mmHg (35-45) H 03/28/18 01:44 ABG pO2 81 mmHg (85-104) L 03/28/18 01:44 ABG HCO3 31 mEq/L (21-27) H 03/28/18 01:44 ABG Total CO2 33 mEq/L (20-26) H 03/28/18 01:44 ABG Base Excess 5 mEq/L (-2 to 3) H 03/28/18 01:44 Carbon Dioxide 36 mEq/L (23-29) H 04/02/18 03:30 BUN 26 mg/dL (8-23) H 04/02/18 03:30 Creatinine 0.33 mg/dL (0.60-1.20) L 04/02/18 03:30 BUN/Creatinine Ratio 79 (6-26) H 04/02/18 03:30 Glucose 137 mg/dL (70-105) H 04/02/18 03:30 POC Glucose 129 mg/dL (70-99) H 04/02/18 07:59 Hemoglobin A1c 5.7 % (-5.6) H 03/27/18 02:50 Calculated Osmolality 301 (280-300) H 04/02/18 03:30 Venous Ioniz Calcium 1.12 mmol/L (1.15-1.35) L 04/02/18 03:46 Phosphorus 2.5 mg/dL (2.7-4.5) L 04/02/18 03:30 Troponin I 1.35 ng/mL (< 0.04) H* 03/27/18 02:50 Serum Total Protein 5.6 g/dL (6.4-8.9) L 03/31/18 04:03 Albumin 3.0 g/dL (3.5-5.7) L 03/31/18 04:03 Triglycerides 171 mg/dL (< 150) H 03/31/18 04:03 - Clinical Findings Intake & Output: Intake & Output 04/01/18 04/02/18 04/02/18 23:59 07:59 15:59 Intake Total 0 / 0 250 / 250 Output Total 225 / 225 350 / 350 150 / 150 Balance -225 / -225 -100 / -100 -150 / -150 Weight 45.6 kg Consult Discharge Plan - Plan Instructions: Acute Respiratory Distress Syndrome (DC), Sepsis (DC), Chronic Hypertension (DC), Pneumonia (DC) Referrals: Letty Joyce, [employer] [Primary Care Provider] - Prescriptions: LORazepam Oral Conc [Ativan Oral Conc] 1 mg PO Q3H PRN 4 Days #15 mls PRN Reason: Anxiety MORPHINE SUL Oral CONC [Roxanol Oral Conc] 5 mg SL Q2H PRN 4 Days #30 ml PRN Reason: Pain/Shortness of breath <Ly Cedillo M - Last Filed: 04/02/18 15:34> Date of Encounter: 04/02/18 Objective PUL Vital signs: Last Vital Signs Temp 97.9 F 04/02/18 13:05 Pulse 112 04/02/18 12:30 Resp 29 04/02/18 12:30 BP 127/78 04/02/18 12:30 Pulse Ox 97 04/02/18 12:30 Results - Laboratory Findings CBC and BMP: 04/02/18 03:30 04/02/18 03:30 ABG ABG pH 7.39 pH Units (7.32-7.45) 03/28/18 01:44 ABG pCO2 52 mmHg (35-45) H 03/28/18 01:44 ABG pO2 81 mmHg (85-104) L 03/28/18 01:44 ABG O2 Saturation 95 % (95-98) 03/28/18 01:44 PT/INR, D-dimer PT 11.9 Seconds (9.4-12.1) 03/28/18 02:54 Abnormal lab findings: Abnormal lab results WBC 17.7 K/mcL (4.3-11.1) H 04/02/18 03:30 Hgb 11.4 g/dL (11.5-15.4) L 04/02/18 03:30 MCHC 30.0 g/dL (31.6-35.5) L 04/02/18 03:30 RDW 15.6 % (11.5-14.5) H 04/02/18 03:30 Neutrophils # 14.0 K/mcL (1.6-8.9) H 04/02/18 03:30 Monocytes # 2.0 K/mcL (0.0-1.3) H 04/02/18 03:30 Nucleated RBCs/100 WBC 0.1 /100 WBC (0) H 04/01/18 03:44 Toxic Granulation Present (Not Present) A 03/25/18 03:26 Toxic Vacuolation Present (Not Present) A 03/25/18 03:26 Poikilocytosis 1+ (Not Present) A 03/25/18 14:20 Anisocytosis 1+ (Not Present) A 03/25/18 14:20 Macrocytosis Present (Not Present) A 03/25/18 14:20 Stomatocytes 1+ (Not Present) A 03/25/18 14:20 ABG pCO2 52 mmHg (35-45) H 03/28/18 01:44 ABG pO2 81 mmHg (85-104) L 03/28/18 01:44 ABG HCO3 31 mEq/L (21-27) H 03/28/18 01:44 ABG Total CO2 33 mEq/L (20-26) H 03/28/18 01:44 ABG Base Excess 5 mEq/L (-2 to 3) H 03/28/18 01:44 Carbon Dioxide 36 mEq/L (23-29) H 04/02/18 03:30 BUN 26 mg/dL (8-23) H 04/02/18 03:30 Creatinine 0.33 mg/dL (0.60-1.20) L 04/02/18 03:30 BUN/Creatinine Ratio 79 (6-26) H 04/02/18 03:30 Glucose 137 mg/dL (70-105) H 04/02/18 03:30 POC Glucose 146 mg/dL (70-99) H 04/02/18 11:54 Hemoglobin A1c 5.7 % (-5.6) H 03/27/18 02:50 Calculated Osmolality 301 (280-300) H 04/02/18 03:30 Venous Ioniz Calcium 1.12 mmol/L (1.15-1.35) L 04/02/18 03:46 Phosphorus 2.5 mg/dL (2.7-4.5) L 04/02/18 03:30 Troponin I 1.35 ng/mL (< 0.04) H* 03/27/18 02:50 Serum Total Protein 5.6 g/dL (6.4-8.9) L 03/31/18 04:03 Albumin 3.0 g/dL (3.5-5.7) L 03/31/18 04:03 Triglycerides 171 mg/dL (< 150) H 03/31/18 04:03 - Clinical Findings Intake & Output: Intake & Output 04/01/18 04/02/18 04/02/18 23:59 07:59 15:59 Intake Total 0 / 0 250 / 250 Output Total 225 / 225 350 / 350 300 / 300 Balance -225 / -225 -100 / -100 -300 / -300 Weight 45.6 kg - Attending Attestation I examined this patient and my medical decision-making was reviewed with the Resident Physician. I agree with the documented findings, disposition and treatment plan as described except to the extent set forth below. Patient seen and examined. Labs, radiology, chart personally reviewed. Agree with resident's history and physical, assessment, plan with following comments: [employer]: Patient follows commands, however she is very lethargic and due to her anxiety should continue requiring sedatives or that noninvasive ventilation. Pulmonary: Patient is not able to come off noninvasive ventilation and overall prognosis is very poor. Her CODE STATUS appropriately change to DNR comfort care and from pulmonary standpoint prognosis is very poor. Appreciate palliative care help. Cardiovascular: stable GI: Nutrition per dietary and GI prophylaxis per routine. Nutrition is a very challenging for this patient being on noninvasive ventilation. Heme: DVT prophylaxis per routine ID: Continue antibiotics and plan to de-escalation Renal; urine out put and renal funtion reviewed Endorcine: blood glucose is monitored Lines: all lines checked and no evidence of infections Skin: skin care to prevent pressure ulcers per nursing routine care
[2018-04-02] MEDS: *HR* Morphine 2 MG/ML SYRINGE IVP PRN ×2 (09:42→19:46)
[2018-04-02] MEDS: Nicotine 21 MG PATCH.TD24 TD SCH (09:44)
[2018-04-02] MEDS: Aspirin 81 MG TAB.CHEW PO SCH (09:46)
[2018-04-02] MEDS ORDERED: D10% in Water 500 ML IVC PRN (11:56)
--- NOTE | 2018-04-02 14:27 | Physician Discharge Referral ---
Home Health/Hosp Referral Info Transfer to: Hospice Provider in Charge Post Discharge: [facility] End Finder - Diagnosis (1) Acute and chronic respiratory failure with hypercapnia Priority: Primary Status: Acute (2) Sepsis Status: Acute (3) Pneumonia Status: Acute (4) DVT prophylaxis Status: Acute (5) Elevated troponin Status: Acute (6) Transaminitis Status: Acute (7) Hyperglycemia Status: Acute (8) Hypertension Status: Acute - Respiratory Orders Oxygen / L per min (6 L/m via high flow nasal cannula-alternating with BiPAP for comfort care.) Smoking Cessation: Smoking cessation has been advised. For more information, call the [place] Tobacco Quit Line at 6-332-JQAW-NOW. - Activity Activity Orders: Up ad francois - Services Needed Following services are medically necessary services: Nursing, Home Health Aide - Transfer Medications Prescriptions: LORazepam Oral Conc [Ativan Oral Conc] 1 mg PO Q3H PRN 4 Days #15 mls PRN Reason: Anxiety MORPHINE SUL Oral CONC [Roxanol Oral Conc] 5 mg SL Q2H PRN 4 Days #30 ml PRN Reason: Pain/Shortness of breath Home Medications: Ipratropium/Albuterol Neb [Duoneb] 3 ml IH Q4H PRN 02/18/15 [History] Metoprolol XL (24 HR) Succ [Toprol Xl] 25 mg PO DAILY 02/18/15 [History] Montelukast [Singulair] 10 mg PO HS 02/18/15 [History] Tiotropium [Spiriva] 18 mcg IH DAILY 02/18/15 [History] Albuterol Sulfate [Albuterol Inhaler] 1 - 2 puff IH Q4HR PRN 07/06/15 [History] Oxygen 3.5 l NS AD 07/06/15 [History] ALPRAZolam [Xanax 0.25 MG Tablet] 0.25 mg PO TID PRN #21 tablet 10/05/15 [Rx] Azithromycin [Azithromycin] 250 mg PO MOWEFR 03/25/18 [History] Cholecalciferol (Vitamin D3) [Dialyvite Vitamin D] 5,000 unit PO DAILY 03/25/18 [History] Cyanocobalamin (B-12) [Vitamin B12] 1,000 mcg PO DAILY 03/25/18 [History] Ferrous Sulfate [Ferrous Sulfate] 325 mg PO DAILY 03/25/18 [History] Fluticasone/Salmeterol [Advair Hfa 230-21 Mcg Inhaler] 2 puff IH BID 03/25/18 [ History] Omeprazole [PriLOSEC] 20 mg PO DAILY 03/25/18 [History] predniSONE [Prednisone] 2.5 mg PO DAILY 03/25/18 [History] LORazepam Oral Conc [Ativan Oral Conc] 1 mg PO Q3H PRN 4 Days #15 mls 04/02/18 [ Rx] MORPHINE SUL Oral CONC [Roxanol Oral Conc] 5 mg SL Q2H PRN 4 Days #30 ml [Rx] Allergies/Adverse Reactions: 3 Allergy/AdvReac Type Severity Reaction Status Date / Time Penicillins Allergy Anaphylaxis Verified 03/24/18 23:35 acetaminophen [From Vicodin] AdvReac Hallucinati Verified 03/25/18 02:05 ng gabapentin [From Neurontin] AdvReac Hallucinati Verified 03/25/18 02:05 ng hydrocodone [From Vicodin] AdvReac Hallucinati Verified 03/25/18 02:05 ng hydroxyzine [From Atarax] AdvReac Diarrhea Verified 03/24/18 23:35 Oxycodone AdvReac Hallucinati Verified 03/24/18 23:35 ng pregabalin [From Lyrica] AdvReac Hallucinati Verified 03/25/18 02:05 ng Certification: Further, I certify that my clinical findings support that this patient is homebound (i.e. absences from home require considerable and taxing effort and are for medical reasons or zoroastrianism services or infrequently or short duration when for other reasons) because: Homebound Reason: Severity of cardiac or pulmonary status limits activity tolerance Attestation: My signature below is to certify that this patient is under my care and that I, or nurse practitioner, or a physician's lab assistant working with me, has a face-to -face encounter with this patient.
--- NOTE | 2018-04-02 14:39 | Palliative Progress Note ---
Date of Encounter: 04/03/18 Time of Encounter: 14:00 - Assessment and plan (1) Acute and chronic respiratory failure with hypercapnia Status: Acute Assessment and plan: Patient requiring 6L NC and BiPAP for treatment. (2) Acute exacerbation of chronic obstructive pulmonary disease (COPD) Status: Acute Assessment and plan: End stage COPD. (3) Counseling regarding advanced care planning and goals of care Status: Acute Assessment and plan: Discussed goals of care. ICU resident present. Patient's decided to transition patient home with [facility]. Referral called to Pamela. Patient's desires to bring home this evening. Rx: Morphine and Ativan for comfort. CODE status changed to DNRCC. State form completed. (4) Dyspnea Status: Acute Qualifiers: Dyspnea type: dyspnea on exertion Qualified Code(s): R06.09 - Other forms of dyspnea - Time Spent With Patient Total time spent is greater than 50% in coordination of care (as documented) at patient's floor/unit and/or counseling patient: Greater than 35 minutes - Subjective Interval history: Patient resting in bed with eyes closed upon arrival for assessment. Patient alert to person and place, disoriented to time. Patient's and neice ( Fernanda) present at bedside. Patient denies pain, dyspnea, anxiety, nausea, or vomiting. Restlessness noted. Patient currently on 6L O2 and Bipap for comfort. - Constitutional Vitals: Abnormal lab results WBC 17.7 K/mcL (4.3-11.1) H 04/02/18 03:30 Hgb 11.4 g/dL (11.5-15.4) L 04/02/18 03:30 MCHC 30.0 g/dL (31.6-35.5) L 04/02/18 03:30 RDW 15.6 % (11.5-14.5) H 04/02/18 03:30 Neutrophils # 14.0 K/mcL (1.6-8.9) H 04/02/18 03:30 Monocytes # 2.0 K/mcL (0.0-1.3) H 04/02/18 03:30 Nucleated RBCs/100 WBC 0.1 /100 WBC (0) H 04/01/18 03:44 Toxic Granulation Present (Not Present) A 03/25/18 03:26 Toxic Vacuolation Present (Not Present) A 03/25/18 03:26 Poikilocytosis 1+ (Not Present) A 03/25/18 14:20 Anisocytosis 1+ (Not Present) A 03/25/18 14:20 Macrocytosis Present (Not Present) A 03/25/18 14:20 Stomatocytes 1+ (Not Present) A 03/25/18 14:20 ABG pCO2 52 mmHg (35-45) H 03/28/18 01:44 ABG pO2 81 mmHg (85-104) L 03/28/18 01:44 ABG HCO3 31 mEq/L (21-27) H 03/28/18 01:44 ABG Total CO2 33 mEq/L (20-26) H 03/28/18 01:44 ABG Base Excess 5 mEq/L (-2 to 3) H 03/28/18 01:44 Carbon Dioxide 36 mEq/L (23-29) H 04/02/18 03:30 BUN 26 mg/dL (8-23) H 04/02/18 03:30 Creatinine 0.33 mg/dL (0.60-1.20) L 04/02/18 03:30 BUN/Creatinine Ratio 79 (6-26) H 04/02/18 03:30 Glucose 137 mg/dL (70-105) H 04/02/18 03:30 POC Glucose 146 mg/dL (70-99) H 04/02/18 11:54 Hemoglobin A1c 5.7 % (-5.6) H 03/27/18 02:50 Calculated Osmolality 301 (280-300) H 04/02/18 03:30 Venous Ioniz Calcium 1.12 mmol/L (1.15-1.35) L 04/02/18 03:46 Phosphorus 2.5 mg/dL (2.7-4.5) L 04/02/18 03:30 Troponin I 1.35 ng/mL (< 0.04) H* 03/27/18 02:50 Serum Total Protein 5.6 g/dL (6.4-8.9) L 03/31/18 04:03 Albumin 3.0 g/dL (3.5-5.7) L 03/31/18 04:03 Triglycerides 171 mg/dL (< 150) H 03/31/18 04:03 General appearance: Present: cooperative, mild distress - Head Head exam: Present: atraumatic, normal inspection - Eye Eye exam: Present: normal appearance, PERRL. Absent: periorbital swelling, periorbital tenderness Pupils: Present: normal accommodation, PERRL - ENT ENT exam: Present: mucous membranes dry, normal external ear exam - Neck Neck exam: Present: full ROM, normal inspection - Respiratory Respiratory exam: Present: accessory muscle use, rhonchi, tachypnea - Cardiovascular Cardiovascular exam: Present: +S1, +S2 - GI/Abdominal GI/Abdominal exam: Present: hypoactive bowel sounds, soft. Absent: tenderness - Rectal Rectal exam: Present: deferred - Extremities Exam Extremities exam: Present: full ROM, normal inspection. Absent: pedal edema - Back Exam Back exam: Present: full ROM, normal inspection - Neurological Exam Neurological exam: Present: alert, altered, strengths equal and symetr throughout. Absent: oriented X3 - Psychiatric Psychiatric exam: Present: anxious - Skin Skin exam: Present: dry, intact, pallor, warm Palliative Quality Palliative Quality: Screen for Code Status: Yes, Screen for Goals of Care: Yes, Screen for Pain: Yes, If Pain Regimen Started, Initiate Bowel Regimen: Yes, Screen for Nausea/Vomitting: Yes Code Status: 03/25/18 02:40 Resuscitation Status: Active [RES] Routine Comment: Resuscitation Status: Full Code - Labs CBC & Chem 7: 04/02/18 03:30 04/02/18 03:30 Labs: Laboratory Results - last 24 hr 04/01/18 04/01/18 04/01/18 15:49 19:12 23:40 WBC RBC Hgb Hct MCV MCH MCHC RDW Plt Count MPV Immature Gran % Seg Neutrophils % Lymphocytes % Monocytes % Eosinophils % Basophils % Neutrophils # Lymphocytes # Monocytes # Eosinophils # Basophils # Sodium Potassium Chloride Carbon Dioxide BUN Creatinine Est GFR ( Amer) Est GFR (Non-Af Amer) BUN/Creatinine Ratio Glucose POC Glucose 153 H 175 H 114 H Calculated Osmolality Calcium Venous Ioniz Calcium Phosphorus Magnesium 04/02/18 04/02/18 04/02/18 03:30 03:30 03:46 WBC 17.7 H RBC 4.07 Hgb 11.4 L Hct 38.0 MCV 93.4 MCH 28.0 MCHC 30.0 L RDW 15.6 H Plt Count 233 MPV 10.3 Immature Gran % 1.9 Seg Neutrophils % 79.0 Lymphocytes % 6.9 Monocytes % 11.2 Eosinophils % 0.6 Basophils % 0.4 Neutrophils # 14.0 H Lymphocytes # 1.2 Monocytes # 2.0 H Eosinophils # 0.1 Basophils # 0.1 Sodium 142 Potassium 3.6 Chloride 102 Carbon Dioxide 36 H BUN 26 H Creatinine 0.33 L Est GFR ( Amer) > 60 Est GFR (Non-Af Amer) > 60 BUN/Creatinine Ratio 79 H Glucose 137 H POC Glucose Calculated Osmolality 301 H Calcium 8.6 Venous Ioniz Calcium 1.12 L Phosphorus 2.5 L Magnesium 2.4 04/02/18 04/02/18 07:59 11:54 WBC RBC Hgb Hct MCV MCH MCHC RDW Plt Count MPV Immature Gran % Seg Neutrophils % Lymphocytes % Monocytes % Eosinophils % Basophils % Neutrophils # Lymphocytes # Monocytes # Eosinophils # Basophils # Sodium Potassium Chloride Carbon Dioxide BUN Creatinine Est GFR ( Amer) Est GFR (Non-Af Amer) BUN/Creatinine Ratio Glucose POC Glucose 129 H 146 H Calculated Osmolality Calcium Venous Ioniz Calcium Phosphorus Magnesium - ABG Interpretation ABG results: ABG ABG pH 7.39 pH Units (7.32-7.45) 03/28/18 01:44 ABG pCO2 52 mmHg (35-45) H 03/28/18 01:44 ABG pO2 81 mmHg (85-104) L 03/28/18 01:44 ABG O2 Saturation 95 % (95-98) 03/28/18 01:44 PT/INR, D-dimer PT 11.9 Seconds (9.4-12.1) 03/28/18 02:54 Consult Discharge Plan - Plan Instructions: Acute Respiratory Distress Syndrome (DC), Chronic Obstructive Pulmonary Disease (DC), Sepsis (DC), Chronic Hypertension (DC), Pneumonia (DC) Referrals: Letty Joyce CNP [Primary Care Provider] - 04/03/18 Prescriptions: LORazepam Oral Conc [Ativan Oral Conc] 1 mg PO Q3H PRN 4 Days #15 mls PRN Reason: Anxiety MORPHINE SUL Oral CONC [Roxanol Oral Conc] 5 mg SL Q2H PRN 4 Days #30 ml PRN Reason: Pain/Shortness of breath predniSONE [PredniSONE] 10 mg PO DAILY 12 Days #30 tablet
--- NOTE | 2018-04-02 15:11 | Discharge Summary ---
<BrenAlexys - Last Filed: 04/03/18 06:55> Date of Encounter: 04/03/18 Time of Encounter: 15:14 - Discharge Diagnosis (1) Acute and chronic respiratory failure with hypercapnia Status: Acute (2) Sepsis Status: Acute Qualifiers: Sepsis type: sepsis due to unspecified organism Qualified Code(s): A41.9 - Sepsis, unspecified organism (3) Pneumonia Status: Acute Qualifiers: Pneumonia type: due to unspecified organism Laterality: bilateral Lung location: lower lobe of lung Qualified Code(s): J18.1 - Lobar pneumonia, unspecified organism (4) DVT prophylaxis Status: Acute (5) Elevated troponin Status: Acute (6) Transaminitis Status: Acute (7) Hyperglycemia Status: Acute (8) Hypertension Status: Acute Qualifiers: Hypertension type: essential hypertension Qualified Code(s): I10 - Essential (primary) hypertension - Discharge Medications Prescriptions: LORazepam Oral Conc [Ativan Oral Conc] 1 mg PO Q3H PRN 4 Days #15 mls PRN Reason: Anxiety MORPHINE SUL Oral CONC [Roxanol Oral Conc] 5 mg SL Q2H PRN 4 Days #30 ml PRN Reason: Pain/Shortness of breath predniSONE [PredniSONE] 10 mg PO DAILY 12 Days #30 tablet Home Medications: Ipratropium/Albuterol Neb [Duoneb] 3 ml IH Q4H PRN 02/18/15 [History] Metoprolol XL (24 HR) Succ [Toprol Xl] 25 mg PO DAILY 02/18/15 [History] Montelukast [Singulair] 10 mg PO HS 02/18/15 [History] Tiotropium [Spiriva] 18 mcg IH DAILY 02/18/15 [History] Albuterol Sulfate [Albuterol Inhaler] 1 - 2 puff IH Q4HR PRN 07/06/15 [History] Oxygen 3.5 l NS AD 07/06/15 [History] ALPRAZolam [Xanax 0.25 MG Tablet] 0.25 mg PO TID PRN #21 tablet 10/05/15 [Rx] Azithromycin [Azithromycin] 250 mg PO MOWEFR 03/25/18 [History] Cholecalciferol (Vitamin D3) [Dialyvite Vitamin D] 5,000 unit PO DAILY 03/25/18 [History] Cyanocobalamin (B-12) [Vitamin B12] 1,000 mcg PO DAILY 03/25/18 [History] Ferrous Sulfate [Ferrous Sulfate] 325 mg PO DAILY 03/25/18 [History] Fluticasone/Salmeterol [Advair Hfa 230-21 Mcg Inhaler] 2 puff IH BID 03/25/18 [ History] Omeprazole [PriLOSEC] 20 mg PO DAILY 03/25/18 [History] predniSONE [Prednisone] 2.5 mg PO DAILY 03/25/18 [History] LORazepam Oral Conc [Ativan Oral Conc] 1 mg PO Q3H PRN 4 Days #15 mls 04/02/18 [ Rx] MORPHINE SUL Oral CONC [Roxanol Oral Conc] 5 mg SL Q2H PRN 4 Days #30 ml [Rx] predniSONE [PredniSONE] 10 mg PO DAILY 12 Days #30 tablet 04/02/18 [Rx] Allergies/Adverse Reactions: 3 Allergy/AdvReac Type Severity Reaction Status Date / Time Penicillins Allergy Anaphylaxis Verified 03/24/18 23:35 acetaminophen [From Vicodin] AdvReac Hallucinati Verified 03/25/18 02:05 ng gabapentin [From Neurontin] AdvReac Hallucinati Verified 03/25/18 02:05 ng hydrocodone [From Vicodin] AdvReac Hallucinati Verified 03/25/18 02:05 ng hydroxyzine [From Atarax] AdvReac Diarrhea Verified 03/24/18 23:35 Oxycodone AdvReac Hallucinati Verified 03/24/18 23:35 ng pregabalin [From Lyrica] AdvReac Hallucinati Verified 03/25/18 02:05 ng Labs on day of discharge: Labs from last 24 hours 04/02/18 04/02/18 04/02/18 11:54 07:59 03:46 WBC RBC Hgb Hct MCV MCH MCHC RDW Plt Count MPV Immature Gran % Seg Neutrophils % Lymphocytes % Monocytes % Eosinophils % Basophils % Neutrophils # Lymphocytes # Monocytes # Eosinophils # Basophils # Sodium Potassium Chloride Carbon Dioxide BUN Creatinine Est GFR ( Amer) Est GFR (Non-Af Amer) BUN/Creatinine Ratio Glucose POC Glucose 146 H 129 H Calculated Osmolality Calcium Venous Ioniz Calcium 1.12 L Phosphorus Magnesium 04/02/18 04/02/18 04/01/18 03:30 03:30 23:40 WBC 17.7 H RBC 4.07 Hgb 11.4 L Hct 38.0 MCV 93.4 MCH 28.0 MCHC 30.0 L RDW 15.6 H Plt Count 233 MPV 10.3 Immature Gran % 1.9 Seg Neutrophils % 79.0 Lymphocytes % 6.9 Monocytes % 11.2 Eosinophils % 0.6 Basophils % 0.4 Neutrophils # 14.0 H Lymphocytes # 1.2 Monocytes # 2.0 H Eosinophils # 0.1 Basophils # 0.1 Sodium 142 Potassium 3.6 Chloride 102 Carbon Dioxide 36 H BUN 26 H Creatinine 0.33 L Est GFR ( Amer) > 60 Est GFR (Non-Af Amer) > 60 BUN/Creatinine Ratio 79 H Glucose 137 H POC Glucose 114 H Calculated Osmolality 301 H Calcium 8.6 Venous Ioniz Calcium Phosphorus 2.5 L Magnesium 2.4 04/01/18 04/01/18 19:12 15:49 WBC RBC Hgb Hct MCV MCH MCHC RDW Plt Count MPV Immature Gran % Seg Neutrophils % Lymphocytes % Monocytes % Eosinophils % Basophils % Neutrophils # Lymphocytes # Monocytes # Eosinophils # Basophils # Sodium Potassium Chloride Carbon Dioxide BUN Creatinine Est GFR ( Amer) Est GFR (Non-Af Amer) BUN/Creatinine Ratio Glucose POC Glucose 175 H 153 H Calculated Osmolality Calcium Venous Ioniz Calcium Phosphorus Magnesium - Impressions ITS Impressions Chest CTA 03/25/18 02:52 IMPRESSION: 1. No evidence for acute pulmonary embolism. 2. Redemonstration of severe centrilobular emphysema. 3. Bilateral posterior basal lower lobe consolidation with trace effusion on the right may reflect pneumonia, atelectasis or combination. 4. And irregular somewhat moncho shaped 2.7 x 2.1 cm anterior segment right upper lobe parenchymal density partly abutting the anterior junction line suggestive of scarring but given absence on prior exam would recommend follow-up to confirm stability. Six-month follow-up advised. D/ / Juan David Mcgregor MD / Juan David Mcgregor MD Interpreting Provider: Juan David Mcgregor MD Echocardiogram 03/25/18 04:07 Impressions: LVEF 30-35%. Normal LV chamber size and wall thickness. Global left ventricular systolic dysfunction with sparing of the basal segments. Mild left ventricular diastolic dysfunction. Normal right ventricular structure and function. Mild-moderate tricuspid regurgitation. Moderate pulmonary hypertension. Estimated RVSP is 53 mmHg. KUB X-Ray 03/25/18 05:19 IMPRESSION: Proximal side hole of the NG tube is in the region of the gastroesophageal junction. Recommend advancing 3-5 cm. D/ / Damian Lutz / Damian Lutz Interpreting Provider: Damian Lutz Liver Ultrasound 03/25/18 15:30 IMPRESSION: Unremarkable right upper quadrant ultrasound. D/ / Constnaza Rivero Cha, MD / Constanza Rivero Cha, MD Interpreting Provider: Constanza Rivero Cha, MD Chest X-Ray 03/26/18 04:00 IMPRESSION: Mild improved aeration in the right lung base, with left basilar atelectasis. The endotracheal tube now lies above the geno in appropriate position. D/ / Mk Frankel MD / Mk Frankel MD Interpreting Provider: Mk Frankel MD Chest X-Ray 04/01/18 05:28 IMPRESSION: Improving bibasilar atelectasis and/or pneumonia. D/ / Luis Kay MD / Luis Kay MD Interpreting Provider: Luis Kay MD Date of admission: 03/25/18 05:16 Primary care physician: Letty Joyce CNP Consults: 03/25/18 02:40 Consult to Pulmonology [CONS] Routine Consulting Provider: [facility]m [facility] Reason for Consult: Sepsis, Pneumonia, Resp Failure Call Completed: Yes 03/25/18 07:22 Consult to Cardiology [CONS] Routine Comment: Consulting Provider: [facility] [place] Reason for Consult: elevated trop, nstemi Call Completed: Yes 03/30/18 12:06 Consult to Nutrition [CONS] Stat Comment: Consulting Provider: NUTRITION Reason for Dietary Consult: TPN Start and Manage 04/01/18 09:35 Consult to Palliative Care [CONS] Routine Comment: Consulting Provider: [facility] [place] Reason for Consult: end stage copd, bipap dependent Time Notified: 09:20 Call Completed: Yes Discharging clinician: Alexys Correia Anticipated date of discharge: 04/02/18 - Patient Status Disposition: Hospice - Home Condition: Serious Functional capacity at discharge: bed bound Overall status at discharge: other - Discharge Instructions Instructions: Acute Respiratory Distress Syndrome (DC), Chronic Obstructive Pulmonary Disease (DC), Sepsis (DC), Chronic Hypertension (DC), Pneumonia (DC) Follow Up With: Letty Joyce CNP [Primary Care Provider] - 04/03/18 - Diet and Activity Activity: wear oxygen at all times Diet: other - Hospital Course Hospital course: Mrs. Burnham is a 72 year old female with a history of COPD presenting from [place] emergency department with pneumonia and respiratory failure. Patient was initially intubated at [place] ED on 03/25/2018 with extubation at [facility] ICU on 03/27/2018. Patient was weaned from the ventilator successfully and placed on BiPAP with alternation to high flow nasal oxygen. No acute events overnight. Patient is asleep and minimally responsive during examination, with intermittent awake episodes noted throughout the morning- patient continues to be confused at baseline. Patient work of breathing appears to be moderately labored. Patient goals of care discussed with family and palliative care medicine - patient states that she wants to go home. Patient family were informed of hospital course and current status as well as expected disease outcome. Patient's family given time to ask questions and further hospice information was related by palliative care team. - Time Spent with Patient Total time spent providing and/or coordinating discharge services: Physical Examination Vital Signs: Vital Signs, Last 4 Hours Temp Pulse Resp BP Pulse Ox 04/02/18 13:05 97.9 F 04/02/18 12:30 112 29 127/78 97 04/02/18 11:25 116 28 119/69 98 General appearance: asleep, appears uncomfortable ENT: oropharynx moist Effort: mildly labored Auscultation: bilateral: clear Cardiovascular: regular rate and rhythm Gastrointestinal: hypoactive bowel sounds, soft, non-tender, non-distended Extremities: no edema <Ly Cedillo M - Last Filed: 04/03/18 10:23> Date of Encounter: 04/03/18 Labs on day of discharge: Labs from last 24 hours 04/02/18 04/02/18 04/02/18 11:54 07:59 03:46 WBC RBC Hgb Hct MCV MCH MCHC RDW Plt Count MPV Immature Gran % Seg Neutrophils % Lymphocytes % Monocytes % Eosinophils % Basophils % Neutrophils # Lymphocytes # Monocytes # Eosinophils # Basophils # Sodium Potassium Chloride Carbon Dioxide BUN Creatinine Est GFR ( Amer) Est GFR (Non-Af Amer) BUN/Creatinine Ratio Glucose POC Glucose 146 H 129 H Calculated Osmolality Calcium Venous Ioniz Calcium 1.12 L Phosphorus Magnesium 04/02/18 04/02/18 04/01/18 03:30 03:30 23:40 WBC 17.7 H RBC 4.07 Hgb 11.4 L Hct 38.0 MCV 93.4 MCH 28.0 MCHC 30.0 L RDW 15.6 H Plt Count 233 MPV 10.3 Immature Gran % 1.9 Seg Neutrophils % 79.0 Lymphocytes % 6.9 Monocytes % 11.2 Eosinophils % 0.6 Basophils % 0.4 Neutrophils # 14.0 H Lymphocytes # 1.2 Monocytes # 2.0 H Eosinophils # 0.1 Basophils # 0.1 Sodium 142 Potassium 3.6 Chloride 102 Carbon Dioxide 36 H BUN 26 H Creatinine 0.33 L Est GFR ( Amer) > 60 Est GFR (Non-Af Amer) > 60 BUN/Creatinine Ratio 79 H Glucose 137 H POC Glucose 114 H Calculated Osmolality 301 H Calcium 8.6 Venous Ioniz Calcium Phosphorus 2.5 L Magnesium 2.4 04/01/18 04/01/18 19:12 15:49 WBC RBC Hgb Hct MCV MCH MCHC RDW Plt Count MPV Immature Gran % Seg Neutrophils % Lymphocytes % Monocytes % Eosinophils % Basophils % Neutrophils # Lymphocytes # Monocytes # Eosinophils # Basophils # Sodium Potassium Chloride Carbon Dioxide BUN Creatinine Est GFR ( Amer) Est GFR (Non-Af Amer) BUN/Creatinine Ratio Glucose POC Glucose 175 H 153 H Calculated Osmolality Calcium Venous Ioniz Calcium Phosphorus Magnesium - Impressions ITS Impressions Chest CTA 03/25/18 02:52 IMPRESSION: 1. No evidence for acute pulmonary embolism. 2. Redemonstration of severe centrilobular emphysema. 3. Bilateral posterior basal lower lobe consolidation with trace effusion on the right may reflect pneumonia, atelectasis or combination. 4. And irregular somewhat moncho shaped 2.7 x 2.1 cm anterior segment right upper lobe parenchymal density partly abutting the anterior junction line suggestive of scarring but given absence on prior exam would recommend follow-up to confirm stability. Six-month follow-up advised. D/ / Juan David Mcgregor MD / Juan David Mcgregor MD Interpreting Provider: Juan David Mcgregor MD Echocardiogram 03/25/18 04:07 Impressions: LVEF 30-35%. Normal LV chamber size and wall thickness. Global left ventricular systolic dysfunction with sparing of the basal segments. Mild left ventricular diastolic dysfunction. Normal right ventricular structure and function. Mild-moderate tricuspid regurgitation. Moderate pulmonary hypertension. Estimated RVSP is 53 mmHg. KUB X-Ray 03/25/18 05:19 IMPRESSION: Proximal side hole of the NG tube is in the region of the gastroesophageal junction. Recommend advancing 3-5 cm. D/ / Damian Lutz / Damian Lutz Interpreting Provider: Damian Lutz Liver Ultrasound 03/25/18 15:30 IMPRESSION: Unremarkable right upper quadrant ultrasound. D/ / Constanza Rivero Cha, MD / Constanza Rivero Cha, MD Interpreting Provider: Constanza Rivero Cha, MD Chest X-Ray 03/26/18 04:00 IMPRESSION: Mild improved aeration in the right lung base, with left basilar atelectasis. The endotracheal tube now lies above the geno in appropriate position. D/ / Mk Frankel MD / Mk Frankel MD Interpreting Provider: Mk Frankel MD Chest X-Ray 04/01/18 05:28 IMPRESSION: Improving bibasilar atelectasis and/or pneumonia. D/ / Luis Kay MD / Luis Kay MD Interpreting Provider: Luis Kya MD Date of admission: 03/25/18 05:16 Primary care physician: Letty Joyce CNP Consults: 03/25/18 02:40 Consult to Pulmonology [CONS] Routine Consulting Provider: [facility]m [facility] [place] Reason for Consult: Sepsis, Pneumonia, Resp Failure Call Completed: Yes 03/25/18 07:22 Consult to Cardiology [CONS] Routine Comment: Consulting Provider: Card[facility] [place] Reason for Consult: elevated trop, nstemi Call Completed: Yes 03/30/18 12:06 Consult to Nutrition [CONS] Stat Comment: Consulting Provider: NUTRITION Reason for Dietary Consult: TPN Start and Manage 04/01/18 09:35 Consult to Palliative Care [CONS] Routine Comment: Consulting Provider: Pall[facility] [place] Reason for Consult: end stage copd, bipap dependent Time Notified: 09:20 Call Completed: Yes - Hospital Course Hospital course: Ms. Burnham is a 72 year old female - Time Spent with Patient Total time spent providing and/or coordinating discharge services: Physical Examination Vital Signs: Vital Signs, Last 4 Hours Temp Pulse Resp BP Pulse Ox 04/02/18 13:05 97.9 F 04/02/18 12:30 112 29 127/78 97 - Attending Attestation I examined this patient and my medical decision-making was reviewed with the Resident Physician. I agree with the documented findings, disposition and treatment plan as described except to the extent set forth below. Patient seen and examined. Labs, radiology, chart personally reviewed. Agree with resident's history and physical, assessment, plan with following comments: After multiple discussion with the family and knowing care very poor prognosis, her CODE STATUS. Changed to comfort care appropriately and hospice to be arranged for her at home. It care will arrange home environment for patient and this is discussed with aspirin at the bedside and given opportunities for any questions.
[2018-04-02] MEDS ORDERED: Clinimix E 5%-15% SOLUTION 2,000 ML with MVI, adult with vitamin K 10 ML IVC SCH (17:00)
[2018-04-02 19:12] VITALS: BP 122/71
== END 2018-04-02 19:55 | disposition hospice, home (50) | DRG 871 ==
LOC: ICNU
PROVIDERS: ADMIT Pediatrics; ATTEND Pediatrics